=== PATIENT | male | born 1970 | race African-American/Black ===

== ENCOUNTER 2018-05-06 09:31 | Inpatient (IN) | payer OTHER ==
[2018-05-06 10:18] VITALS: BMI 24.3
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
[2018-05-06] MEDS ORDERED: NICOTINE POLACRILEX 2 MG GUM BUC PRN (11:40)
[2018-05-06] MEDS ORDERED: ACETAMINOPHEN 325 MG TABLET (FP) PO PRN (11:40)
[2018-05-06] MEDS ORDERED: MAGNESIUM CITRATE 300 ML BOTTLE PO PRN (11:40)
[2018-05-06] MEDS ORDERED: MAG HYDROX/AL HYDROX/SIMETH 30 ML UNIT-DOSE CUP PO PRN (11:40)
[2018-05-06] MEDS ORDERED: MAGNESIUM HYDROX 2400MG/30ML ORAL SUSPENSION 30 ML CUP PO PRN (11:40)
--- NOTE | 2018-05-06 13:59 | EKG ---
Test Reason : Blood Pressure : / mmHG Vent. Rate : 098 BPM Atrial Rate : 098 BPM P-R Int : 120 ms QRS Dur : 078 ms QT Int : 342 ms P-R-T Axes : 071 049 -13 degrees QTc Int : 436 ms NORMAL SINUS RHYTHM ABNORMAL QRS-T ANGLE, CONSIDER PRIMARY T WAVE ABNORMALITY ABNORMAL ECG NO PREVIOUS ECGS AVAILABLE Confirmed by HOMA RANGEL MD ([id number]) on 05/06/2018 1:58:29 PM Referred By: Confirmed By:HOMA RANGEL MD
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
[2018-05-06 17:16] LABS: URINE APPEARANCE CLEAR; URINE BILIRUBIN NEGATIVE (<2.0 mg/dL); URINE GLUCOSE (UA) NEGATIVE (NEGATIVE); URINE KETONE NEGATIVE (NEGATIVE); URINE LEUK ESTERASE TRACE (NEGATIVE); URINE NITRITE NEGATIVE (NEGATIVE); URINE PROTEIN NEGATIVE (NEGATIVE); URINE UROBILINOGEN NEGATIVE mg/dL (0.2-1.0)
[2018-05-06 17:27] LABS: URINE COLOR YELLOW
[2018-05-06 17:39] LABS: EPI CELLS RARE /HPF (FEW); URINE MUCUS RARE
[2018-05-06] MEDS: chlordiazePOXIDE HCL 25 MG CAPSULE PO SCH ×2 (17:43→22:21)
[2018-05-06] MEDS ORDERED: MELATONIN 5 MG TABLETS PO PRN (22:00)
[2018-05-06] MEDS: THIAMINE HCL 100 MG TABLET (FP) PO SCH (22:21)
[2018-05-07] MEDS: chlordiazePOXIDE HCL 25 MG CAPSULE PO SCH ×4 (06:21→22:37)
[2018-05-07] MEDS: IBUPROFEN 400 MG TABLET (FP) PO PRN ×2 (10:26→22:40)
[2018-05-07] MEDS: PRENATAL VITAMINS W/ FOLIC ACID TABLET (FP) PO SCH (10:26)
[2018-05-07 10:33] LABS: HEMATOCRIT 44.5 % (35.4-49); HEMOGLOBIN 14.7 GM/dL (11.7-16.9); MCH 31.7 pg (25.7-33.7); MEAN PLT VOLUME 9.3 fl (7.5-11.1); PLATELET COUNT 193 K/MM3 (134-434); RBC 4.63 M/mm3 (4.00-5.60); WHITE BLOOD COUNT 4.6 K/mm3 (4.0-10.0)
[2018-05-07 12:30] LABS: ALBUMIN 3.4 g/dl (3.4-5.0); ALK PHOS 91 U/L (45-117); ANION GAP 8 MMOL/L (8-16); BILIRUBIN,TOTAL 0.5 mg/dL (0.2-1); BLOOD UREA NITROGEN 23 mg/dL (7-18); CALCIUM 8.8 mg/dL (8.5-10.1); CHLORIDE 104 mmol/L (98-107); CO2 27 mmol/L (21-32); CREATININE 1.7 mg/dL (0.55-1.3); GLUCOSE,RANDOM 118 mg/dL (74-106); POTASSIUM 4.1 mmol/L (3.5-5.1); SGOT/AST 15 U/L (15-37); SGPT/ALT 33 U/L (13-61); SODIUM 139 mmol/L (136-145); TOT PROT 7.2 g/dl (6.4-8.2)
--- NOTE | 2018-05-07 14:32 | PN ---
S CIWA - CIWA Score Nausea/Vomitin-Mild Nausea/No Vomiting Muscle Tremors: 4-Moderate,w/Arms Extend Anxiety: 2 Agitation: 3 Paroxysmal Sweats: 1-Minimal Palms Moist Orientation: 0-Oriented Tacttile Disturbances: 1-Very Mild Itch/Numbness Auditory Disturbances: 0-None Visual Disturbances: 0-None Headache: 0-None Present CIWA-Ar Total Score: 12 BHS Progress Note (SOAP) Subjective: SWEAT TREMOR RESTLESSNESS IRRITABLE ANXIETY AGITATION Objective: 05/07/18 14:30 Vital Signs Temperature 98.1 F 05/07/18 13:38 Pulse Rate 83 05/07/18 13:38 Respiratory Rate 18 05/07/18 13:38 Blood Pressure 142/91 05/07/18 13:38 O2 Sat by Pulse Oximetry (%) Laboratory Last Values WBC 4.6 K/mm3 (4.0-10.0) 05/07/18 06:00 RBC 4.63 M/mm3 (4.00-5.60) 05/07/18 06:00 Hgb 14.7 GM/dL (11.7-16.9) 05/07/18 06:00 Hct 44.5 % (35.4-49) 05/07/18 06:00 MCV 96.0 fl (80-96) 05/07/18 06:00 MCH 31.7 pg (25.7-33.7) 05/07/18 06:00 MCHC 33.0 g/dl (32.0-35.9) 05/07/18 06:00 RDW 14.0 % (11.9-15.9) 05/07/18 06:00 Plt Count 193 K/MM3 (134-434) 05/07/18 06:00 MPV 9.3 fl (7.5-11.1) 05/07/18 06:00 Sodium 139 mmol/L (136-145) 05/07/18 06:00 Potassium 4.1 mmol/L (3.5-5.1) 05/07/18 06:00 Chloride 104 mmol/L (98-107) 05/07/18 06:00 Carbon Dioxide 27 mmol/L (21-32) 05/07/18 06:00 Anion Gap 8 MMOL/L (8-16) 05/07/18 06:00 BUN 23 mg/dL (7-18) H 05/07/18 06:00 Creatinine 1.7 mg/dL (0.55-1.3) H 05/07/18 06:00 Creat Clearance w eGFR 43.05 (>60) 05/07/18 06:00 Random Glucose 118 mg/dL (74-106) H 05/07/18 06:00 Calcium 8.8 mg/dL (8.5-10.1) 05/07/18 06:00 Total Bilirubin 0.5 mg/dL (0.2-1) 05/07/18 06:00 AST 15 U/L (15-37) 05/07/18 06:00 ALT 33 U/L (13-61) 05/07/18 06:00 Alkaline Phosphatase 91 U/L (45-117) 05/07/18 06:00 Total Protein 7.2 g/dl (6.4-8.2) 05/07/18 06:00 Albumin 3.4 g/dl (3.4-5.0) 05/07/18 06:00 Urine Color Yellow 05/06/18 16:15 Urine Appearance Clear 05/06/18 16:15 Urine pH 5.0 (5.0-8.0) 05/06/18 16:15 Ur Specific [place] 1.016 (1.001-1.035) 05/06/18 16:15 Urine Protein Negative (NEGATIVE) 05/06/18 16:15 Urine Glucose (UA) Negative (NEGATIVE) 05/06/18 16:15 Urine Ketones Negative (NEGATIVE) 05/06/18 16:15 Urine Blood Negative (NEGATIVE) 05/06/18 16:15 Urine Nitrite Negative (NEGATIVE) 05/06/18 16:15 Urine Bilirubin Negative (<2.0 mg/dL) 05/06/18 16:15 Urine Urobilinogen Negative mg/dL (0.2-1.0) 05/06/18 16:15 Ur Leukocyte Esterase Trace (NEGATIVE) 05/06/18 16:15 Urine WBC (Auto) 4 /hpf (3-5) 05/06/18 16:15 Urine RBC (Auto) 1 /hpf (0-3) 05/06/18 16:15 Ur Epithelial Cells Rare /HPF (FEW) 05/06/18 16:15 Urine Mucus Rare 05/06/18 16:15 RPR Titer Nonreactive (NONREACTIVE) 05/07/18 06:00 LAB NOTED REPEAT CAMP Assessment: 05/07/18 14:31 WITHDRAWAL SX RULE OUT RENAL Plan: CONTINUE DETOX
[2018-05-07] MEDS ORDERED: hydrOXYzine PAMOATE 50 MG CAPSULE (FP) PO PRN (16:00)
[2018-05-07] MEDS ORDERED: QUEtiapine FUMARATE 50 MG TABLET PO ONE (16:30)
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
--- NOTE | 2018-05-07 18:00 | PN ---
[facility] CIWA - CIWA Score Nausea/Vomitin-No Nausea/No Vomiting Muscle Tremors: None Anxiety: 1-Mildly Anxious Agitation: 0-Normal Activity Paroxysmal Sweats: No Perspiration Orientation: 0-Oriented Tacttile Disturbances: 0-None Auditory Disturbances: 0-None Visual Disturbances: 0-None Headache: 0-None Present (for 05/06/18 addendum) CIWA-Ar Total Score: 1
[2018-05-07] MEDS ORDERED: QUEtiapine FUMARATE 50 MG TABLET PO SCH (22:00)
[2018-05-07] MEDS: THIAMINE HCL 100 MG TABLET (FP) PO SCH (23:01)
[2018-05-08] MEDS: chlordiazePOXIDE HCL 25 MG CAPSULE PO SCH ×2 (06:05→10:27)
[2018-05-08 06:12] VITALS: BP 138/86; PULSE 70; TEMP 97.3
[2018-05-08] MEDS: PRENATAL VITAMINS W/ FOLIC ACID TABLET (FP) PO SCH (10:27)
[2018-05-08 10:53] LABS: ALBUMIN 2.8 g/dl (3.4-5.0); ALK PHOS 75 U/L (45-117); ANION GAP 8 MMOL/L (8-16); BILIRUBIN,TOTAL 0.2 mg/dL (0.2-1); BLOOD UREA NITROGEN 20 mg/dL (7-18); CALCIUM 8.8 mg/dL (8.5-10.1); CHLORIDE 109 mmol/L (98-107); CO2 25 mmol/L (21-32); CREATININE 1.2 mg/dL (0.55-1.3); GLUCOSE,RANDOM 87 mg/dL (74-106); POTASSIUM 4.6 mmol/L (3.5-5.1); SGOT/AST 14 U/L (15-37); SGPT/ALT 24 U/L (13-61); SODIUM 142 mmol/L (136-145); TOT PROT 5.8 g/dl (6.4-8.2)
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
--- NOTE | 2018-05-08 11:46 | DS ---
[facility] Detox Discharge Summary Admission Date: 05/06/18 Discharge Date: 05/08/18 - History Present History: Alcohol Dependence, Cocaine Dependence Additional Comments: PT DECLINED TREATMENT. Pertinent Past History: PLEASE SEE DX BELOW - Physical Exam Results Vital Signs: Vital Signs Temperature 97.3 F L 05/08/18 06:11 Pulse Rate 70 05/08/18 06:11 Respiratory Rate 16 05/08/18 06:11 Blood Pressure 138/86 05/08/18 06:11 O2 Sat by Pulse Oximetry (%) Pertinent Admission Physical Exam Findings: WITHDRAWAL SX Laboratory Tests 05/06/18 05/07/18 05/07/18 16:15 06:00 06:00 WBC 4.6 RBC 4.63 Hgb 14.7 Hct 44.5 MCV 96.0 MCH 31.7 MCHC 33.0 RDW 14.0 Plt Count 193 MPV 9.3 Sodium 139 Potassium 4.1 Chloride 104 Carbon Dioxide 27 Anion Gap 8 BUN 23 H Creatinine 1.7 H Creat Clearance w eGFR 43.05 Random Glucose 118 H Calcium 8.8 Total Bilirubin 0.5 AST 15 ALT 33 Alkaline Phosphatase 91 Total Protein 7.2 Albumin 3.4 Urine Color Yellow Urine Appearance Clear Urine pH 5.0 Ur Specific [place] 1.016 Urine Protein Negative Urine Glucose (UA) Negative Urine Ketones Negative Urine Blood Negative Urine Nitrite Negative Urine Bilirubin Negative Urine Urobilinogen Negative Ur Leukocyte Esterase Trace Urine WBC (Auto) 4 Urine RBC (Auto) 1 Ur Epithelial Cells Rare Urine Mucus Rare RPR Titer 05/07/18 05/08/18 06:00 07:00 WBC RBC Hgb Hct MCV MCH MCHC RDW Plt Count MPV Sodium 142 Potassium 4.6 Chloride 109 H Carbon Dioxide 25 Anion Gap 8 BUN 20 H Creatinine 1.2 Creat Clearance w eGFR > 60 Random Glucose 87 Calcium 8.8 Total Bilirubin 0.2 AST 14 L ALT 24 Alkaline Phosphatase 75 Total Protein 5.8 L Albumin 2.8 L Urine Color Urine Appearance Urine pH Ur Specific [place] Urine Protein Urine Glucose (UA) Urine Ketones Urine Blood Urine Nitrite Urine Bilirubin Urine Urobilinogen Ur Leukocyte Esterase Urine WBC (Auto) Urine RBC (Auto) Ur Epithelial Cells Urine Mucus RPR Titer Nonreactive - Treatment Hospital Course: Discharged Condition Good - Medication Discharge Medications: Ambulatory Orders Amlodipine Besylate [Norvasc -] 10 mg PO DAILY 05/06/18 - Diagnosis (1) Alcohol dependence with withdrawal, uncomplicated Status: Acute (2) Cocaine dependence Status: Acute Qualifiers: Substance use status: uncomplicated Qualified Code(s): F14.20 - Cocaine dependence, uncomplicated (3) Hypertension Status: Chronic Qualifiers: Hypertension type: essential hypertension Qualified Code(s): I10 - Essential (primary) hypertension (4) Nicotine dependence Status: Acute Qualifiers: Nicotine product type: cigarettes Substance use status: in withdrawal Qualified Code(s): F17.213 - Nicotine dependence, cigarettes, with withdrawal - AMA Did Patient Leave Against Medical Advice: Yes (AMA)
[2018-05-08] MEDS ORDERED: chlordiazePOXIDE 5 MG CAPSULE PO SCH (17:00)
[2018-05-09] MEDS ORDERED: chlordiazePOXIDE HCL 10 MG CAPSULE PO SCH (17:00)
== END 2018-05-08 10:41 | disposition left against medical advice (07) | DRG 770 ==
LOC: YASAS 09:31 → Y6N 12:27 → Y3N 05-07 15:36
PROC: HZ2ZZZZ Detoxification Services for Substance Abuse Treatment (ICD-10-PCS; principal; 2018-05-06)
DX: F10.230 Alcohol dependence with withdrawal, uncomplicated (principal); F14.20 Cocaine dependence, uncomplicated; F17.210 Nicotine dependence, cigarettes, uncomplicated; F19.24 Other psychoactive substance dependence with psychoactive substance-induced mood disorder; F60.9 Personality disorder, unspecified; F60.2 Antisocial personality disorder; I10 Essential (primary) hypertension; M25.572 Pain in left ankle and joints of left foot
CPT/HCPCS: 36415; 80053; 81003; 81015; 85027; 86593; 93005; 93010

== ENCOUNTER 2018-06-23 10:32 | Inpatient (IN) | payer OTHER ==
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
[2018-06-23] MEDS ORDERED: MENTHOL/PHENOL 1 EACH UD MM PRN (14:58)
[2018-06-23] MEDS ORDERED: MAG HYDROX/AL HYDROX/SIMETH 30 ML UNIT-DOSE CUP PO PRN (14:58)
[2018-06-23] MEDS ORDERED: LOPERAMIDE HCL 2 MG CAPSULE PO PRN (14:58)
[2018-06-23] MEDS ORDERED: guaiFENesin/D-METHORPHAN HB 10 ML UNIT-DOSE CUPS PO PRN (14:58)
[2018-06-23] MEDS ORDERED: P-EPHED 60MG/TRIPROLIDI 2.5MG TABLET PO PRN (14:58)
[2018-06-23] MEDS ORDERED: MAGNESIUM HYDROX 2400MG/30ML ORAL SUSPENSION 30 ML CUP PO PRN (14:58)
[2018-06-23] MEDS ORDERED: MAGNESIUM CITRATE 300 ML BOTTLE PO PRN (14:58)
[2018-06-23] MEDS ORDERED: ACETAMINOPHEN 325 MG TABLET (FP) PO PRN (14:58)
[2018-06-23] MEDS ORDERED: TUBERCULIN PPD 5 TU/0.1ML VIAL ID ONE (17:46)
[2018-06-23] MEDS: hydrOXYzine PAMOATE 50 MG CAPSULE (FP) PO PRN (22:00)
[2018-06-23] MEDS: TOLNAFTATE 1% CREAM 15 GM TUBE TP SCH (22:00)
[2018-06-23] MEDS: THIAMINE HCL 100 MG TABLET (FP) PO SCH (22:00)
[2018-06-23] MEDS ORDERED: cloNIDine HCL 0.1 MG TABLET PO ONE (22:05)
--- NOTE | 2018-06-23 22:07 | PN ---
S Progress Note Note: Patient' blood pressure was B/P 162/112. Patient is asymptomatic Vital Signs Temperature 99.0 F 06/23/18 17:56 Pulse Rate 69 06/23/18 22:07 Respiratory Rate 18 06/24/18 03:30 Blood Pressure 162/116 H 06/23/18 22:07 O2 Sat by Pulse Oximetry (%) Action: Clonidine 0.1mg tablet ordered
[2018-06-24 01:10] LABS: URINE APPEARANCE CLEAR; URINE BILIRUBIN NEGATIVE (<2.0 mg/dL); URINE COLOR YELLOW; URINE GLUCOSE (UA) NEGATIVE (NEGATIVE); URINE KETONE NEGATIVE (NEGATIVE); URINE LEUK ESTERASE 1+ (NEGATIVE); URINE NITRITE NEGATIVE (NEGATIVE); URINE PROTEIN NEGATIVE (NEGATIVE); URINE UROBILINOGEN NEGATIVE mg/dL (0.2-1.0)
[2018-06-24 01:21] LABS: EPI CELLS RARE /HPF (FEW); URINE MUCUS RARE
--- NOTE | 2018-06-24 09:51 | EKG ---
Test Reason : Blood Pressure : / mmHG Vent. Rate : 067 BPM Atrial Rate : 067 BPM P-R Int : 112 ms QRS Dur : 082 ms QT Int : 404 ms P-R-T Axes : 046 052 -03 degrees QTc Int : 426 ms NORMAL SINUS RHYTHM NONSPECIFIC T WAVE ABNORMALITY ABNORMAL ECG WHEN COMPARED WITH ECG OF 06-MAY-2018 13:51, NO SIGNIFICANT CHANGE WAS FOUND Confirmed by JUAN CARLOS ASHLEY, HOMA ([id number]) on 06/24/2018 9:50:47 AM Referred By: Confirmed By:HOMA RANGEL MD
[2018-06-24 10:16] LABS: HEMATOCRIT 42.1 % (35.4-49); HEMOGLOBIN 13.4 GM/dL (11.7-16.9); MCHC 31.9 g/dl (32.0-35.9); RDW 14.5 % (11.9-15.9)
[2018-06-24] MEDS: amLODIPine BESYLATE 5 MG TABLET (FP) PO SCH (10:16)
[2018-06-24] MEDS: PRENATAL VITAMINS W/ FOLIC ACID TABLET (FP) PO SCH (10:16)
[2018-06-24] MEDS: NICOTINE 14 MG/24 HOURS TOPICAL PATCH TD SCH (10:16)
[2018-06-24] MEDS: TOLNAFTATE 1% CREAM 15 GM TUBE TP SCH ×2 (10:17→21:59)
[2018-06-24 10:18] LABS: MCH 30.7 pg (25.7-33.7); MEAN CELL VOLUME 96.4 fl (80-96); MEAN PLT VOLUME 7.8 fl (7.5-11.1); PLATELET COUNT 227 K/MM3 (134-434); RBC 4.37 M/mm3 (4.00-5.60); WHITE BLOOD COUNT 4.6 K/mm3 (4.0-10.0)
[2018-06-24 11:10] LABS: ALBUMIN 2.9 g/dl (3.4-5.0); ALK PHOS 80 U/L (45-117); ANION GAP 10 MMOL/L (8-16); BILIRUBIN,TOTAL 0.3 mg/dL (0.2-1); BLOOD UREA NITROGEN 18 mg/dL (7-18); CALCIUM 8.3 mg/dL (8.5-10.1); CHLORIDE 105 mmol/L (98-107); CO2 25 mmol/L (21-32); CREATININE 1.4 mg/dL (0.55-1.3); GLUCOSE,RANDOM 120 mg/dL (74-106); POTASSIUM 4.5 mmol/L (3.5-5.1); SGOT/AST 8 U/L (15-37); SGPT/ALT 21 U/L (13-61); SODIUM 140 mmol/L (136-145); TOT PROT 6.1 g/dl (6.4-8.2)
[2018-06-24] MEDS: THIAMINE HCL 100 MG TABLET (FP) PO SCH (21:58)
[2018-06-25] MEDS: amLODIPine BESYLATE 5 MG TABLET (FP) PO SCH (10:33)
[2018-06-25] MEDS: NICOTINE 14 MG/24 HOURS TOPICAL PATCH TD SCH (10:33)
[2018-06-25] MEDS: PRENATAL VITAMINS W/ FOLIC ACID TABLET (FP) PO SCH (10:33)
[2018-06-25] MEDS: TOLNAFTATE 1% CREAM 15 GM TUBE TP SCH ×2 (10:33→21:57)
[2018-06-25] MEDS: IBUPROFEN 400 MG TABLET (FP) PO PRN (10:35)
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
[2018-06-25 15:10] LABS: ALBUMIN 3.3 g/dl (3.4-5.0); ALK PHOS 86 U/L (45-117); ANION GAP 7 MMOL/L (8-16); BILIRUBIN,TOTAL 0.2 mg/dL (0.2-1); BLOOD UREA NITROGEN 21 mg/dL (7-18); CALCIUM 8.7 mg/dL (8.5-10.1); CHLORIDE 104 mmol/L (98-107); CO2 27 mmol/L (21-32); CREATININE 1.4 mg/dL (0.55-1.3); GLUCOSE,RANDOM 74 mg/dL (74-106); POTASSIUM 4.7 mmol/L (3.5-5.1); SGOT/AST 13 U/L (15-37); SGPT/ALT 21 U/L (13-61); SODIUM 139 mmol/L (136-145); TOT PROT 6.6 g/dl (6.4-8.2)
[2018-06-25] MEDS: hydrOXYzine PAMOATE 50 MG CAPSULE (FP) PO PRN (15:42)
[2018-06-25] MEDS: THIAMINE HCL 100 MG TABLET (FP) PO SCH (21:53)
[2018-06-26] MEDS: TOLNAFTATE 1% CREAM 15 GM TUBE TP SCH ×2 (10:20→21:34)
[2018-06-26] MEDS: NICOTINE POLACRILEX 2 MG GUM BUC PRN (10:20)
[2018-06-26] MEDS: PRENATAL VITAMINS W/ FOLIC ACID TABLET (FP) PO SCH (10:20)
[2018-06-26] MEDS: amLODIPine BESYLATE 5 MG TABLET (FP) PO SCH (10:20)
[2018-06-26] MEDS: NICOTINE 14 MG/24 HOURS TOPICAL PATCH TD SCH (10:22)
[2018-06-26] MEDS: hydrOXYzine PAMOATE 50 MG CAPSULE (FP) PO PRN (12:52)
[2018-06-26] MEDS: THIAMINE HCL 100 MG TABLET (FP) PO SCH (21:34)
[2018-06-27] MEDS: amLODIPine BESYLATE 5 MG TABLET (FP) PO SCH (10:12)
[2018-06-27] MEDS: PRENATAL VITAMINS W/ FOLIC ACID TABLET (FP) PO SCH (10:12)
[2018-06-27] MEDS: NICOTINE 14 MG/24 HOURS TOPICAL PATCH TD SCH (10:13)
[2018-06-27] MEDS: TOLNAFTATE 1% CREAM 15 GM TUBE TP SCH ×2 (10:13→21:36)
[2018-06-27] MEDS: MELATONIN 5 MG TABLETS PO PRN (21:35)
[2018-06-27] MEDS: THIAMINE HCL 100 MG TABLET (FP) PO SCH (21:35)
[2018-06-28] MEDS: amLODIPine BESYLATE 5 MG TABLET (FP) PO SCH (09:53)
[2018-06-28] MEDS: PRENATAL VITAMINS W/ FOLIC ACID TABLET (FP) PO SCH (09:53)
[2018-06-28] MEDS: NICOTINE 14 MG/24 HOURS TOPICAL PATCH TD SCH (09:54)
[2018-06-28] MEDS: TOLNAFTATE 1% CREAM 15 GM TUBE TP SCH ×2 (09:54→21:29)
[2018-06-28] MEDS: THIAMINE HCL 100 MG TABLET (FP) PO SCH (21:28)
[2018-06-28] MEDS: hydrOXYzine PAMOATE 50 MG CAPSULE (FP) PO PRN (21:29)
[2018-06-28] MEDS: NICOTINE POLACRILEX 2 MG GUM BUC PRN (21:31)
[2018-06-29] MEDS: PRENATAL VITAMINS W/ FOLIC ACID TABLET (FP) PO SCH (10:30)
[2018-06-29] MEDS: amLODIPine BESYLATE 5 MG TABLET (FP) PO SCH (10:30)
[2018-06-29] MEDS: NICOTINE 14 MG/24 HOURS TOPICAL PATCH TD SCH (10:31)
[2018-06-29] MEDS: TOLNAFTATE 1% CREAM 15 GM TUBE TP SCH ×2 (10:31→23:24)
[2018-06-29] MEDS: SELENIUM SULFIDE 2.5% LOTION 4 OZ. TP SCH (14:49)
[2018-06-29] MEDS: THIAMINE HCL 100 MG TABLET (FP) PO SCH (21:39)
[2018-06-29] MEDS: IBUPROFEN 400 MG TABLET (FP) PO PRN (21:40)
[2018-06-30] MEDS: PRENATAL VITAMINS W/ FOLIC ACID TABLET (FP) PO SCH (11:00)
[2018-06-30] MEDS: NICOTINE 14 MG/24 HOURS TOPICAL PATCH TD SCH (11:01)
[2018-06-30] MEDS: amLODIPine BESYLATE 5 MG TABLET (FP) PO SCH (11:01)
[2018-06-30] MEDS: TOLNAFTATE 1% CREAM 15 GM TUBE TP SCH ×2 (11:02→21:29)
[2018-06-30] MEDS: SELENIUM SULFIDE 2.5% LOTION 4 OZ. TP SCH (11:02)
[2018-06-30] MEDS: cloNIDine HCL 0.1 MG TABLET PO PRN (14:47)
[2018-06-30] MEDS: hydrOXYzine PAMOATE 50 MG CAPSULE (FP) PO PRN (21:29)
[2018-06-30] MEDS: MELATONIN 5 MG TABLETS PO PRN (21:29)
[2018-06-30] MEDS: THIAMINE HCL 100 MG TABLET (FP) PO SCH (21:29)
[2018-07-01 06:56] VITALS: TEMP 98
[2018-07-01] MEDS: amLODIPine BESYLATE 10 MG TABLET (FP) PO SCH (10:07)
[2018-07-01] MEDS: PRENATAL VITAMINS W/ FOLIC ACID TABLET (FP) PO SCH (10:07)
[2018-07-01] MEDS: SELENIUM SULFIDE 2.5% LOTION 4 OZ. TP SCH (10:08)
[2018-07-01] MEDS: NICOTINE 14 MG/24 HOURS TOPICAL PATCH TD SCH (10:08)
[2018-07-01] MEDS: TOLNAFTATE 1% CREAM 15 GM TUBE TP SCH ×2 (10:09→23:31)
[2018-07-01] MEDS: cloNIDine HCL 0.1 MG TABLET PO PRN (21:38)
[2018-07-01] MEDS: THIAMINE HCL 100 MG TABLET (FP) PO SCH (21:38)
[2018-07-02 06:50] VITALS: BP 136/88; PULSE 73
[2018-07-02] MEDS: cloNIDine HCL 0.1 MG TABLET PO PRN (08:57)
[2018-07-02] MEDS: amLODIPine BESYLATE 10 MG TABLET (FP) PO SCH (10:00)
[2018-07-02] MEDS: NICOTINE 14 MG/24 HOURS TOPICAL PATCH TD SCH (10:00)
[2018-07-02] MEDS: PRENATAL VITAMINS W/ FOLIC ACID TABLET (FP) PO SCH (10:00)
[2018-07-02] MEDS: SELENIUM SULFIDE 2.5% LOTION 4 OZ. TP SCH (10:02)
--- NOTE | 2018-07-02 10:31 | PN ---
Psychiatric Progress Note Vital Signs: Vital Signs Period Temp Pulse Resp BP Sys/Esquivel Pulse Ox Last 24 Hr 98.0 F 73-84 -18 136-162/88-95 Date of Session: 07/02/18 Chief Complaint:: Discharge Note HPI: Patient addressing Cocaine Dependence comorbid with Nicotine dependence, personolity Disorder and substance-induced mood disorder ROS: HTN was medically managed Current Medications: Active Medications Generic Name Dose Route Start Last Admin Trade Name Freq PRN Reason Stop Dose Admin Acetaminophen 650 mg 06/23/18 14:58 Tylenol - PO Q4H PRN FEVER Al Hydroxide/Mg Hydroxide 30 ml 06/23/18 14:58 Mylanta Oral Suspension - PO Q6H PRN DYSPEPSIA Amlodipine Besylate 10 mg 07/01/18 10:00 07/02/18 10:00 Norvasc - PO 10 mg DAILY AUBREY Administration Clonidine 0.1 mg 06/30/18 14:37 07/02/18 08:57 Catapres - PO 0.1 mg BID PRN Administration HYPERTENSION Eucalyptus/Menthol/Phenol/Sorbitol 1 each 06/23/18 14:58 Cepastat Lozenge - MM Q4H PRN SORE THROAT Guaifenesin 10 ml 06/23/18 14:58 Robitussin Dm - PO Q6H PRN COUGH Hydroxyzine Pamoate 50 mg 06/23/18 14:58 06/30/18 21:29 Vistaril - PO 50 mg Q4H PRN Administration AGITATION Ibuprofen 400 mg 06/23/18 14:58 06/29/18 21:40 Motrin - PO 400 mg Q6H PRN Administration Pain level 4-6 Loperamide HCl 4 mg 06/23/18 14:58 Imodium - PO Q6H PRN DIARRHEA Magnesium Citrate 300 ml 06/23/18 14:58 Citroma - PO Q48H PRN CONSTIPATION Magnesium Hydroxide 30 ml 06/23/18 14:58 Milk Of Magnesia - PO DAILY PRN CONSTIPATION Melatonin 5 mg 06/23/18 22:00 06/30/18 21:29 Melatonin PO 5 mg HS PRN Administration INSOMNIA Nicotine 14 mg 06/24/18 10:00 07/02/18 10:00 Nicoderm Patch - TD Not Given DAILY AUBREY Nicotine Polacrilex 2 mg 06/25/18 10:51 06/28/18 21:31 Nicorette Gum - BUC 2 mg Q2H PRN Administration NICOTINE REPLACEMENT RX Multivit/Folic Acid/Iron 1 tab 06/24/18 10:00 07/02/18 10:00 Vitamins (Sjr) - PO 1 tab DAILY AUBREY Administration Pseudoephedrine/Triprolidine 1 combo 06/23/18 14:58 Actifed - PO TID PRN NASAL CONGESTION Selenium Sulfide 1 applic 06/29/18 14:15 07/02/18 10:02 Selsun 2.5% Lotion - TP 07/06/18 14:15 1 applic DAILY AUBREY Administration Thiamine HCl 100 mg 06/23/18 22:00 07/01/18 21:38 Vitamin B1 - PO 100 mg HS AUBREY Administration Tolnaftate 1 applic 06/23/18 22:00 07/01/18 23:31 Tinactin 1% Cream - TP Not Given BID AUBREY Current Side Effect: No Lab tests ordered: Yes Lab tests reviewed: Yes Provider note:: Patient has completed this program today. he has met his treatment goals and will continue to address his issues in outpatient at [facility] at [address] [place] [address]. told sba underwriter that from his participation in this program, he has learned that you could only get what you put in. He is stable for discharge today Mental Status Exam - Mental Status Exam Alert and Oriented to: Time, Place, Person Cognitive Function: Fair Patient Appearance: Well Groomed Mood: Hopeful, Euthymic Affect: Appropriate Patient Behavior: Cooperative Speech Pattern: Clear Voice Loudness: Normal Thought Process: Intact, Goal Oriented Thought Disorder: Not Present Hallucinations: Denies Suicidal Ideation: Denies Homicidal Ideation: Denies Insight/Judgement: Fair Sleep: Fair Appetite: Good Muscle strength/Tone: Normal Gait/Station: Normal Psychiatric Treatment Plan - Problem List (1) Cocaine dependence Current Visit: Yes Qualifiers: Substance use status: uncomplicated Qualified Code(s): F14.20 - Cocaine dependence, uncomplicated (2) Nicotine dependence Current Visit: No Qualifiers: Nicotine product type: cigarettes Substance use status: in withdrawal Qualified Code(s): F17.213 - Nicotine dependence, cigarettes, with withdrawal (3) Personality disorder Current Visit: Yes (4) Substance induced mood disorder Current Visit: Yes (5) Hypertension Current Visit: Yes Qualifiers: Hypertension type: essential hypertension Qualified Code(s): I10 - Essential (primary) hypertension Initial treatment plan: Patient is dischasrged today and referred to [facility] in [place], [place] for outpatient treatment
[2018-07-02] MEDS: TOLNAFTATE 1% CREAM 15 GM TUBE TP SCH (11:04)
== END 2018-07-02 10:35 | disposition home or self-care (01) | DRG 772 ==
LOC: YASAS 10:32 → Y5N 15:14
PROVIDERS: ADMIT Psychiatry & Neurology Psychiatry; ATTEND Psychiatry & Neurology Psychiatry
PROC: HZ42ZZZ Group Counseling for Substance Abuse Treatment, Cognitive-Behavioral (ICD-10-PCS; principal; 2018-06-23)
DX: F10.20 Alcohol dependence, uncomplicated (principal); F14.20 Cocaine dependence, uncomplicated; F17.213 Nicotine dependence, cigarettes, with withdrawal; F19.24 Other psychoactive substance dependence with psychoactive substance-induced mood disorder; F60.9 Personality disorder, unspecified; I10 Essential (primary) hypertension; B35.3 Tinea pedis; Z91.14 Patient's other noncompliance with medication regimen
CPT/HCPCS: 36415; 80053; 81003; 81015; 82962; 85027; 86593; 87389; 93005; 93010; J0735

== ENCOUNTER 2018-07-25 14:19 | Inpatient (IN) | payer OTHER ==
[2018-07-25 15:55] VITALS: BMI 24.4
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
[2018-07-25] MEDS ORDERED: LOPERAMIDE HCL 2 MG CAPSULE PO PRN (18:51)
[2018-07-25] MEDS ORDERED: IBUPROFEN 400 MG TABLET (FP) PO PRN (18:51)
[2018-07-25] MEDS ORDERED: guaiFENesin/D-METHORPHAN HB 10 ML UNIT-DOSE CUPS PO PRN (18:51)
[2018-07-25] MEDS ORDERED: hydrOXYzine PAMOATE 50 MG CAPSULE (FP) PO PRN (18:51)
[2018-07-25] MEDS ORDERED: MAGNESIUM CITRATE 300 ML BOTTLE PO PRN (18:51)
[2018-07-25] MEDS ORDERED: MAG HYDROX/AL HYDROX/SIMETH 30 ML UNIT-DOSE CUP PO PRN (18:51)
[2018-07-25] MEDS ORDERED: MENTHOL/PHENOL 1 EACH UD MM PRN (18:51)
[2018-07-25] MEDS ORDERED: MAGNESIUM HYDROX 2400MG/30ML ORAL SUSPENSION 30 ML CUP PO PRN (18:51)
[2018-07-25] MEDS ORDERED: ACETAMINOPHEN 325 MG TABLET (FP) PO PRN (18:51)
[2018-07-25] MEDS ORDERED: P-EPHED 60MG/TRIPROLIDI 2.5MG TABLET PO PRN (18:51)
[2018-07-25] MEDS ORDERED: NICOTINE POLACRILEX 2 MG GUM BC PRN (18:51)
[2018-07-25] MEDS: NICOTINE 14 MG/24 HOURS TOPICAL PATCH TD SCH (19:31)
[2018-07-25] MEDS: chlordiazePOXIDE HCL 25 MG CAPSULE PO PRN (19:31)
[2018-07-25] MEDS: amLODIPine BESYLATE 10 MG TABLET (FP) PO SCH (19:31)
[2018-07-25] MEDS ORDERED: MELATONIN 5 MG TABLETS PO PRN (22:00)
[2018-07-25 22:36] LABS: URINE APPEARANCE CLEAR; URINE BILIRUBIN NEGATIVE (<2.0 mg/dL); URINE COLOR YELLOW; URINE GLUCOSE (UA) NEGATIVE (NEGATIVE); URINE KETONE NEGATIVE (NEGATIVE); URINE LEUK ESTERASE NEGATIVE (NEGATIVE); URINE NITRITE NEGATIVE (NEGATIVE); URINE PROTEIN NEGATIVE (NEGATIVE)
[2018-07-25] MEDS: chlordiazePOXIDE HCL 25 MG CAPSULE PO SCH (22:55)
[2018-07-25] MEDS: TOLNAFTATE 1% CREAM 15 GM TUBE TP SCH (22:55)
[2018-07-25] MEDS: THIAMINE HCL 100 MG TABLET (FP) PO SCH (22:55)
[2018-07-26] MEDS: chlordiazePOXIDE HCL 25 MG CAPSULE PO SCH ×4 (06:30→22:34)
[2018-07-26 10:31] LABS: HEMATOCRIT 40.5 % (35.4-49); HEMOGLOBIN 13.9 GM/dL (11.7-16.9); MCH 32.1 pg (25.7-33.7); MCHC 34.3 g/dl (32.0-35.9); MEAN CELL VOLUME 93.7 fl (80-96); MEAN PLT VOLUME 7.9 fl (7.5-11.1); PLATELET COUNT 235 K/MM3 (134-434); RBC 4.32 M/mm3 (4.00-5.60); RDW 15.1 % (11.9-15.9); WHITE BLOOD COUNT 3.6 K/mm3 (4.0-10.0)
[2018-07-26] MEDS: SELENIUM SULFIDE 2.5% LOTION 4 OZ. TP SCH (10:42)
[2018-07-26] MEDS: TOLNAFTATE 1% CREAM 15 GM TUBE TP SCH ×2 (10:43→22:34)
[2018-07-26] MEDS: NICOTINE 14 MG/24 HOURS TOPICAL PATCH TD SCH (10:43)
[2018-07-26] MEDS: amLODIPine BESYLATE 10 MG TABLET (FP) PO SCH (10:43)
[2018-07-26] MEDS: PRENATAL VITAMINS W/ FOLIC ACID TABLET (FP) PO SCH (10:43)
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
[2018-07-26 11:08] LABS: ALBUMIN 2.8 g/dl (3.4-5.0); ALK PHOS 71 U/L (45-117); ANION GAP 8 MMOL/L (8-16); BILIRUBIN,TOTAL 0.5 mg/dL (0.2-1); BLOOD UREA NITROGEN 11 mg/dL (7-18); CALCIUM 8.2 mg/dL (8.5-10.1); CHLORIDE 107 mmol/L (98-107); CO2 26 mmol/L (21-32); CREATININE 1.4 mg/dL (0.55-1.3); GLUCOSE,RANDOM 80 mg/dL (74-106); POTASSIUM 4.5 mmol/L (3.5-5.1); SGOT/AST 9 U/L (15-37); SGPT/ALT 17 U/L (13-61); SODIUM 141 mmol/L (136-145)
--- NOTE | 2018-07-26 18:10 | PN ---
[facility] CIWA - CIWA Score Nausea/Vomitin Muscle Tremors: 4-Moderate,w/Arms Extend Anxiety: 4-Mod. Anxious/Guarded Agitation: 4-Moderately Restless Paroxysmal Sweats: 3 Orientation: 0-Oriented Tacttile Disturbances: 0-None Auditory Disturbances: 0-None Visual Disturbances: 0-None Headache: 0-None Present CIWA-Ar Total Score: 17 BHS Progress Note (SOAP) Subjective: Chills, sweating, interrupted sleep Objective: 07/26/18 18:08 Last Vital Signs Temp Pulse Resp BP Pulse Ox 98.9 F 73 18 120/66 07/26/18 14:50 07/26/18 14:50 07/26/18 14:50 07/26/18 14:50 Laboratory Tests 07/25/18 07/26/18 07/26/18 18:30 07:15 07:15 WBC 3.6 L RBC 4.32 Hgb 13.9 Hct 40.5 MCV 93.7 MCH 32.1 MCHC 34.3 RDW 15.1 Plt Count 235 MPV 7.9 Sodium 141 Potassium 4.5 Chloride 107 Carbon Dioxide 26 Anion Gap 8 BUN 11 Creatinine 1.4 H Creat Clearance w eGFR 53.64 Random Glucose 80 Calcium 8.2 L Total Bilirubin 0.5 AST 9 L ALT 17 Alkaline Phosphatase 71 Total Protein 6.0 L Albumin 2.8 L Urine Color Yellow Urine Appearance Clear Urine pH 5.0 Ur Specific [place] 1.026 Urine Protein Negative Urine Glucose (UA) Negative Urine Ketones Negative Urine Blood Negative Urine Nitrite Negative Urine Bilirubin Negative Urine Urobilinogen 2.0 Ur Leukocyte Esterase Negative RPR Titer 07/26/18 07:15 WBC RBC Hgb Hct MCV MCH MCHC RDW Plt Count MPV Sodium Potassium Chloride Carbon Dioxide Anion Gap BUN Creatinine Creat Clearance w eGFR Random Glucose Calcium Total Bilirubin AST ALT Alkaline Phosphatase Total Protein Albumin Urine Color Urine Appearance Urine pH Ur Specific [place] Urine Protein Urine Glucose (UA) Urine Ketones Urine Blood Urine Nitrite Urine Bilirubin Urine Urobilinogen Ur Leukocyte Esterase RPR Titer Nonreactive Labs reviewed: SILAS noted Assessment: 07/26/18 18:09 Withdrawal symptoms SILAS noted Plan: Continue detox SILAS: encouraged PO water hydration, repeat BMP
[2018-07-26] MEDS: THIAMINE HCL 100 MG TABLET (FP) PO SCH (22:34)
[2018-07-27] MEDS: chlordiazePOXIDE HCL 25 MG CAPSULE PO PRN ×3 (03:13→19:30)
[2018-07-27] MEDS: chlordiazePOXIDE HCL 25 MG CAPSULE PO SCH ×3 (06:03→17:14)
[2018-07-27] MEDS: PRENATAL VITAMINS W/ FOLIC ACID TABLET (FP) PO SCH (10:39)
[2018-07-27] MEDS: amLODIPine BESYLATE 10 MG TABLET (FP) PO SCH (10:39)
[2018-07-27] MEDS: TOLNAFTATE 1% CREAM 15 GM TUBE TP SCH ×2 (10:39→22:37)
[2018-07-27] MEDS: SELENIUM SULFIDE 2.5% LOTION 4 OZ. TP SCH (10:40)
[2018-07-27] MEDS: NICOTINE 14 MG/24 HOURS TOPICAL PATCH TD SCH (10:52)
[2018-07-27 11:00] LABS: ANION GAP 8 MMOL/L (8-16); BLOOD UREA NITROGEN 17 mg/dL (7-18); CALCIUM 8.2 mg/dL (8.5-10.1); CHLORIDE 108 mmol/L (98-107); CO2 23 mmol/L (21-32); CREATININE 1.5 mg/dL (0.55-1.3); GLUCOSE,RANDOM 112 mg/dL (74-106); POTASSIUM 4.3 mmol/L (3.5-5.1); SODIUM 139 mmol/L (136-145)
--- NOTE | 2018-07-27 14:02 | PN ---
S CIWA - CIWA Score Nausea/Vomitin-Mild Nausea/No Vomiting Muscle Tremors: 3 Anxiety: 2 Agitation: 3 Paroxysmal Sweats: 1-Minimal Palms Moist Orientation: 0-Oriented Tacttile Disturbances: 0-None Auditory Disturbances: 0-None Visual Disturbances: 0-None Headache: 2-Mild CIWA-Ar Total Score: 12 S Progress Note (SOAP) Subjective: tremor sweat anxiety restlessness headaches trouble resting at night Objective: 07/27/18 14:01 Vital Signs Temperature 98.4 F 07/27/18 13:19 Pulse Rate 83 07/27/18 13:19 Respiratory Rate 18 07/27/18 13:19 Blood Pressure 127/84 07/27/18 13:19 O2 Sat by Pulse Oximetry (%) Laboratory Last Values WBC 3.6 K/mm3 (4.0-10.0) L 07/26/18 07:15 RBC 4.32 M/mm3 (4.00-5.60) 07/26/18 07:15 Hgb 13.9 GM/dL (11.7-16.9) 07/26/18 07:15 Hct 40.5 % (35.4-49) 07/26/18 07:15 MCV 93.7 fl (80-96) 07/26/18 07:15 MCH 32.1 pg (25.7-33.7) 07/26/18 07:15 MCHC 34.3 g/dl (32.0-35.9) 07/26/18 07:15 RDW 15.1 % (11.9-15.9) 07/26/18 07:15 Plt Count 235 K/MM3 (134-434) 07/26/18 07:15 MPV 7.9 fl (7.5-11.1) 07/26/18 07:15 Sodium 139 mmol/L (136-145) 07/27/18 07:00 Potassium 4.3 mmol/L (3.5-5.1) 07/27/18 07:00 Chloride 108 mmol/L (98-107) H 07/27/18 07:00 Carbon Dioxide 23 mmol/L (21-32) 07/27/18 07:00 Anion Gap 8 MMOL/L (8-16) 07/27/18 07:00 BUN 17 mg/dL (7-18) 07/27/18 07:00 Creatinine 1.5 mg/dL (0.55-1.3) H 07/27/18 07:00 Creat Clearance w eGFR 49.54 (>60) 07/27/18 07:00 Random Glucose 112 mg/dL (74-106) H 07/27/18 07:00 Calcium 8.2 mg/dL (8.5-10.1) L 07/27/18 07:00 Total Bilirubin 0.5 mg/dL (0.2-1) 07/26/18 07:15 AST 9 U/L (15-37) L 07/26/18 07:15 ALT 17 U/L (13-61) 07/26/18 07:15 Alkaline Phosphatase 71 U/L (45-117) 07/26/18 07:15 Total Protein 6.0 g/dl (6.4-8.2) L 07/26/18 07:15 Albumin 2.8 g/dl (3.4-5.0) L 07/26/18 07:15 Urine Color Yellow 07/25/18 18:30 Urine Appearance Clear 07/25/18 18:30 Urine pH 5.0 (5.0-8.0) 07/25/18 18:30 Ur Specific [place] 1.026 (1.010-1.035) 07/25/18 18:30 Urine Protein Negative (NEGATIVE) 07/25/18 18:30 Urine Glucose (UA) Negative (NEGATIVE) 07/25/18 18:30 Urine Ketones Negative (NEGATIVE) 07/25/18 18:30 Urine Blood Negative (NEGATIVE) 07/25/18 18:30 Urine Nitrite Negative (NEGATIVE) 07/25/18 18:30 Urine Bilirubin Negative (<2.0 mg/dL) 07/25/18 18:30 Urine Urobilinogen 2.0 mg/dL (0.2-1.0) 07/25/18 18:30 Ur Leukocyte Esterase Negative (NEGATIVE) 07/25/18 18:30 RPR Titer Nonreactive (NONREACTIVE) 07/26/18 07:15 lab noted Assessment: 07/27/18 14:02 withdrawal sx Plan: continue detox
[2018-07-27] MEDS: THIAMINE HCL 100 MG TABLET (FP) PO SCH (22:37)
[2018-07-27] MEDS: chlordiazePOXIDE 5 MG CAPSULE PO SCH (22:37)
[2018-07-28] MEDS: chlordiazePOXIDE 5 MG CAPSULE PO SCH (06:25)
[2018-07-28 06:29] VITALS: TEMP 98.2
[2018-07-28] MEDS: PRENATAL VITAMINS W/ FOLIC ACID TABLET (FP) PO SCH (09:04)
[2018-07-28] MEDS: amLODIPine BESYLATE 10 MG TABLET (FP) PO SCH (09:06)
[2018-07-28 09:07] VITALS: BP 121/85; PULSE 103
--- NOTE | 2018-07-28 09:18 | DS ---
[facility] Detox Discharge Summary Admission Date: 07/25/18 Discharge Date: 07/28/18 - History Present History: Alcohol Dependence Additional Comments: 48 years old male admitted on 07/25/18 for alcohol withdrawal stabilization completed alcohol detox regimen tolerated well alert no acute distress aftercare [facility] - Physical Exam Results Vital Signs: Vital Signs Temperature 98.2 F 07/28/18 06:29 Pulse Rate 103 H 07/28/18 09:07 Respiratory Rate 18 07/28/18 06:29 Blood Pressure 121/85 07/28/18 09:07 O2 Sat by Pulse Oximetry (%) Pertinent Admission Physical Exam Findings: alcohol withdrawal sx Vital Signs Temperature 98.2 F 07/28/18 06:29 Pulse Rate 103 H 07/28/18 09:07 Respiratory Rate 18 07/28/18 06:29 Blood Pressure 121/85 07/28/18 09:07 O2 Sat by Pulse Oximetry (%) Laboratory Last Values WBC 3.6 K/mm3 (4.0-10.0) L 07/26/18 07:15 RBC 4.32 M/mm3 (4.00-5.60) 07/26/18 07:15 Hgb 13.9 GM/dL (11.7-16.9) 07/26/18 07:15 Hct 40.5 % (35.4-49) 07/26/18 07:15 MCV 93.7 fl (80-96) 07/26/18 07:15 MCH 32.1 pg (25.7-33.7) 07/26/18 07:15 MCHC 34.3 g/dl (32.0-35.9) 07/26/18 07:15 RDW 15.1 % (11.9-15.9) 07/26/18 07:15 Plt Count 235 K/MM3 (134-434) 07/26/18 07:15 MPV 7.9 fl (7.5-11.1) 07/26/18 07:15 Sodium 139 mmol/L (136-145) 07/27/18 07:00 Potassium 4.3 mmol/L (3.5-5.1) 07/27/18 07:00 Chloride 108 mmol/L (98-107) H 07/27/18 07:00 Carbon Dioxide 23 mmol/L (21-32) 07/27/18 07:00 Anion Gap 8 MMOL/L (8-16) 07/27/18 07:00 BUN 17 mg/dL (7-18) 07/27/18 07:00 Creatinine 1.5 mg/dL (0.55-1.3) H 07/27/18 07:00 Creat Clearance w eGFR 49.54 (>60) 07/27/18 07:00 Random Glucose 112 mg/dL (74-106) H 07/27/18 07:00 Calcium 8.2 mg/dL (8.5-10.1) L 07/27/18 07:00 Total Bilirubin 0.5 mg/dL (0.2-1) 07/26/18 07:15 AST 9 U/L (15-37) L 07/26/18 07:15 ALT 17 U/L (13-61) 07/26/18 07:15 Alkaline Phosphatase 71 U/L (45-117) 07/26/18 07:15 Total Protein 6.0 g/dl (6.4-8.2) L 07/26/18 07:15 Albumin 2.8 g/dl (3.4-5.0) L 07/26/18 07:15 Urine Color Yellow 07/25/18 18:30 Urine Appearance Clear 07/25/18 18:30 Urine pH 5.0 (5.0-8.0) 07/25/18 18:30 Ur Specific [place] 1.026 (1.010-1.035) 07/25/18 18:30 Urine Protein Negative (NEGATIVE) 07/25/18 18:30 Urine Glucose (UA) Negative (NEGATIVE) 07/25/18 18:30 Urine Ketones Negative (NEGATIVE) 07/25/18 18:30 Urine Blood Negative (NEGATIVE) 07/25/18 18:30 Urine Nitrite Negative (NEGATIVE) 07/25/18 18:30 Urine Bilirubin Negative (<2.0 mg/dL) 07/25/18 18:30 Urine Urobilinogen 2.0 mg/dL (0.2-1.0) 07/25/18 18:30 Ur Leukocyte Esterase Negative (NEGATIVE) 07/25/18 18:30 RPR Titer Nonreactive (NONREACTIVE) 07/26/18 07:15 lab noted - Treatment Hospital Course: Detox Protocol Followed, Detoxed Safely, Responded well, Discharged Condition Good, Rehab Referral Accepted Patient has Accepted a Rehab Referral to: [facility] - Medication Discharge Medications: Ambulatory Orders Amlodipine Besylate [Norvasc -] 10 mg PO DAILY #14 tablet 07/28/18 - Diagnosis (1) Alcohol dependence with withdrawal, uncomplicated Status: Acute (2) Weight loss Status: Acute (3) Hypertension Status: Chronic Qualifiers: Hypertension type: essential hypertension Qualified Code(s): I10 - Essential (primary) hypertension (4) Nicotine dependence Status: Acute Qualifiers: Nicotine product type: cigarettes Substance use status: in withdrawal Qualified Code(s): F17.213 - Nicotine dependence, cigarettes, with withdrawal - AMA Did Patient Leave Against Medical Advice: No
[2018-07-28] MEDS ORDERED: chlordiazePOXIDE HCL 10 MG CAPSULE PO SCH (23:00)
== END 2018-07-28 09:05 | disposition home or self-care (01) | DRG 774 ==
LOC: YASAS 14:19 → Y3N 18:35
PROC: HZ2ZZZZ Detoxification Services for Substance Abuse Treatment (ICD-10-PCS; principal; 2018-07-25)
DX: F10.230 Alcohol dependence with withdrawal, uncomplicated (principal); F14.20 Cocaine dependence, uncomplicated; F17.213 Nicotine dependence, cigarettes, with withdrawal; F19.24 Other psychoactive substance dependence with psychoactive substance-induced mood disorder; F60.2 Antisocial personality disorder; F60.9 Personality disorder, unspecified; I10 Essential (primary) hypertension; N17.9 Acute kidney failure, unspecified; B35.3 Tinea pedis; L21.9 Seborrheic dermatitis, unspecified; R63.4 Abnormal weight loss; Z68.24 Body mass index [BMI] 24.0-24.9, adult; Z86.19 Personal history of other infectious and parasitic diseases
CPT/HCPCS: 36415; 80048; 80053; 81003; 85027; 86593

== ENCOUNTER 2018-10-19 22:01 | Inpatient (IN) | payer OTHER ==
[~2018-10-19 22:01] MED LIST: MELATONIN 5 MG TABLETS PO PRN
[2018-10-19 22:39] VITALS: BMI 23.7
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
[2018-10-19] MEDS ORDERED: LOPERAMIDE HCL 2 MG CAPSULE PO PRN (23:22)
[2018-10-19] MEDS ORDERED: MAG HYDROX/AL HYDROX/SIMETH 30 ML UNIT-DOSE CUP PO PRN (23:22)
[2018-10-19] MEDS ORDERED: ACETAMINOPHEN 325 MG TABLET (FP) PO PRN (23:22)
[2018-10-19] MEDS ORDERED: hydrOXYzine PAMOATE 50 MG CAPSULE (FP) PO PRN (23:22)
[2018-10-19] MEDS ORDERED: MAGNESIUM CITRATE 300 ML BOTTLE PO PRN (23:22)
[2018-10-19] MEDS ORDERED: MAGNESIUM HYDROX 2400MG/30ML ORAL SUSPENSION 30 ML CUP PO PRN (23:22)
[2018-10-19] MEDS ORDERED: P-EPHED 60MG/TRIPROLIDI 2.5MG TABLET PO PRN (23:22)
[2018-10-19] MEDS ORDERED: MENTHOL/PHENOL 1 EACH UD MM PRN (23:22)
[2018-10-19] MEDS ORDERED: guaiFENesin/D-METHORPHAN HB 10 ML UNIT-DOSE CUPS PO PRN (23:22)
[2018-10-19] MEDS ORDERED: NICOTINE POLACRILEX 2 MG GUM BC PRN (23:22)
[2018-10-20] MEDS ORDERED: chlordiazePOXIDE HCL 25 MG CAPSULE PO PRN (00:02)
[2018-10-20] MEDS: chlordiazePOXIDE HCL 25 MG CAPSULE PO SCH ×4 (06:31→22:27)
[2018-10-20] MEDS: amLODIPine BESYLATE 10 MG TABLET (FP) PO SCH (10:21)
[2018-10-20] MEDS: PRENATAL VITAMINS W/ FOLIC ACID TABLET (FP) PO SCH (10:21)
[2018-10-20] MEDS: NICOTINE 14 MG/24 HOURS TOPICAL PATCH TD SCH (10:22)
[2018-10-20 10:58] LABS: HEMATOCRIT 38.9 % (35.4-49); HEMOGLOBIN 13.1 GM/dL (11.7-16.9); MCH 31.7 pg (25.7-33.7); MCHC 33.7 g/dl (32.0-35.9); MEAN CELL VOLUME 94.1 fl (80-96); MEAN PLT VOLUME 8.3 fl (7.5-11.1); PLATELET COUNT 190 K/MM3 (134-434); RBC 4.14 M/mm3 (4.00-5.60); RDW 15.3 % (11.9-15.9); WHITE BLOOD COUNT 4.4 K/mm3 (4.0-10.0)
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
[2018-10-20 11:09] LABS: ALK PHOS 76 U/L (45-117); ANION GAP 10 MMOL/L (8-16); BILIRUBIN,TOTAL 0.4 mg/dL (0.2-1); BLOOD UREA NITROGEN 18 mg/dL (7-18); CALCIUM 8.6 mg/dL (8.5-10.1); CHLORIDE 105 mmol/L (98-107); CO2 24 mmol/L (21-32); CREATININE 1.3 mg/dL (0.55-1.3); GLUCOSE,RANDOM 81 mg/dL (74-106); POTASSIUM 4.1 mmol/L (3.5-5.1); SGOT/AST 18 U/L (15-37); SGPT/ALT 31 U/L (13-61); SODIUM 139 mmol/L (136-145); TOT PROT 6.1 g/dl (6.4-8.2)
--- NOTE | 2018-10-20 14:33 | PN ---
S CIWA - CIWA Score Nausea/Vomitin-Mild Nausea/No Vomiting Muscle Tremors: 3 Anxiety: 1-Mildly Anxious Agitation: 2 Paroxysmal Sweats: 1-Minimal Palms Moist Orientation: 1-Uncertain about Date Tacttile Disturbances: 0-None Auditory Disturbances: 0-None Visual Disturbances: 0-None Headache: 2-Mild CIWA-Ar Total Score: 11 S Progress Note (SOAP) Subjective: tremor sweating restlessness anxiety Objective: 10/20/18 14:33 Vital Signs Temperature 98.4 F 10/20/18 14:02 Pulse Rate 72 10/20/18 14:02 Respiratory Rate 18 10/20/18 14:02 Blood Pressure 116/69 10/20/18 14:02 O2 Sat by Pulse Oximetry (%) Laboratory Last Values WBC 4.4 K/mm3 (4.0-10.0) 10/20/18 07:00 RBC 4.14 M/mm3 (4.00-5.60) 10/20/18 07:00 Hgb 13.1 GM/dL (11.7-16.9) 10/20/18 07:00 Hct 38.9 % (35.4-49) 10/20/18 07:00 MCV 94.1 fl (80-96) 10/20/18 07:00 MCH 31.7 pg (25.7-33.7) 10/20/18 07:00 MCHC 33.7 g/dl (32.0-35.9) 10/20/18 07:00 RDW 15.3 % (11.9-15.9) 10/20/18 07:00 Plt Count 190 K/MM3 (134-434) 10/20/18 07:00 MPV 8.3 fl (7.5-11.1) 10/20/18 07:00 Sodium 139 mmol/L (136-145) 10/20/18 07:00 Potassium 4.1 mmol/L (3.5-5.1) 10/20/18 07:00 Chloride 105 mmol/L (98-107) 10/20/18 07:00 Carbon Dioxide 24 mmol/L (21-32) 10/20/18 07:00 Anion Gap 10 MMOL/L (8-16) 10/20/18 07:00 BUN 18 mg/dL (7-18) 10/20/18 07:00 Creatinine 1.3 mg/dL (0.55-1.3) 10/20/18 07:00 Creat Clearance w eGFR 58.43 (>60) 10/20/18 07:00 Random Glucose 81 mg/dL (74-106) 10/20/18 07:00 Calcium 8.6 mg/dL (8.5-10.1) 10/20/18 07:00 Total Bilirubin 0.4 mg/dL (0.2-1) 10/20/18 07:00 AST 18 U/L (15-37) 10/20/18 07:00 ALT 31 U/L (13-61) 10/20/18 07:00 Alkaline Phosphatase 76 U/L (45-117) 10/20/18 07:00 Total Protein 6.1 g/dl (6.4-8.2) L 10/20/18 07:00 Albumin 3.0 g/dl (3.4-5.0) L 10/20/18 07:00 RPR Titer Nonreactive (NONREACTIVE) 10/20/18 07:00 lab noted Assessment: 10/20/18 14:34 withdrawal sx Plan: continue detox
[2018-10-20] MEDS: THIAMINE HCL 100 MG TABLET (FP) PO SCH (22:28)
[2018-10-20] MEDS: IBUPROFEN 400 MG TABLET (FP) PO PRN (22:30)
[2018-10-21] MEDS: chlordiazePOXIDE HCL 25 MG CAPSULE PO SCH ×4 (05:30→22:41)
[2018-10-21] MEDS: IBUPROFEN 400 MG TABLET (FP) PO PRN (07:27)
[2018-10-21] MEDS: PRENATAL VITAMINS W/ FOLIC ACID TABLET (FP) PO SCH (10:28)
[2018-10-21] MEDS: NICOTINE 14 MG/24 HOURS TOPICAL PATCH TD SCH (10:28)
[2018-10-21] MEDS: amLODIPine BESYLATE 10 MG TABLET (FP) PO SCH (10:28)
[2018-10-21] MEDS ORDERED: SELENIUM SULFIDE 2.25% 180 ML SHAMPOO TP SCH (10:30)
--- NOTE | 2018-10-21 14:45 | PN ---
[facility] CIWA - CIWA Score Nausea/Vomitin-No Nausea/No Vomiting Muscle Tremors: None Anxiety: 0-No Anxiety, at Ease Agitation: 0-Normal Activity Paroxysmal Sweats: No Perspiration Orientation: 0-Oriented Tacttile Disturbances: 0-None Auditory Disturbances: 0-None Visual Disturbances: 0-None Headache: 0-None Present CIWA-Ar Total Score: 0 [facility] Progress Note (SOAP) Subjective: pt here for alcohol detox day #2, doing well. Requesting ensure, double meal portions, requesting Se Sulfide shampoo for itchy scalp/dandruff O: Vital Signs - 24 hr 10/20/18 10/21/18 10/21/18 17:43 00:30 03:30 Temperature Pulse Rate 75 Respiratory 18 18 18 Rate Blood Pressure 119/80 10/21/18 10/21/18 10/21/18 07:51 09:14 12:56 Temperature 97.3 F L 97.2 F L 98.1 F Pulse Rate 63 99 H 93 H Respiratory 18 18 18 Rate Blood Pressure 125/72 142/89 136/77 Laboratory Tests 10/20/18 10/20/18 10/20/18 07:00 07:00 07:00 WBC 4.4 RBC 4.14 Hgb 13.1 Hct 38.9 MCV 94.1 MCH 31.7 MCHC 33.7 RDW 15.3 Plt Count 190 MPV 8.3 Sodium 139 Potassium 4.1 Chloride 105 Carbon Dioxide 24 Anion Gap 10 BUN 18 Creatinine 1.3 Creat Clearance w eGFR 58.43 Random Glucose 81 Calcium 8.6 Total Bilirubin 0.4 AST 18 ALT 31 Alkaline Phosphatase 76 Total Protein 6.1 L Albumin 3.0 L RPR Titer Nonreactive a/p: continue alcohol detox protocol ensure and double portions ordered shampoo ordered
[2018-10-21] MEDS: THIAMINE HCL 100 MG TABLET (FP) PO SCH (22:41)
[2018-10-22] MEDS: chlordiazePOXIDE 5 MG CAPSULE PO SCH ×2 (06:11→09:44)
--- NOTE | 2018-10-22 08:58 | PN ---
S Progress Note (SOAP) Subjective: alert complaint of dry skin,no withdrawal symptom Objective: 10/22/18 08:55 Vital Signs Temperature 98.1 F 10/22/18 06:50 Pulse Rate 67 10/22/18 06:50 Respiratory Rate 18 10/22/18 06:50 Blood Pressure 115/75 10/22/18 06:50 O2 Sat by Pulse Oximetry (%) Assessment: 10/22/18 08:55 no withdrawal symptom 10/22/18 08:57 lachydrin for dry skin Plan: discharge today,follow up with loan [facility] for further level of care
--- NOTE | 2018-10-22 09:03 | DS ---
[facility] Detox Discharge Summary Admission Date: 10/19/18 Discharge Date: 10/22/18 - History Present History: Alcohol Dependence, Cannabis Dependence, Cocaine Dependence Additional Comments: follow up with loan [facility]re[facility] arrangemant Pertinent Past History: hypertension dry skin nicotine dependence - Physical Exam Results Vital Signs: Vital Signs Temperature 98.1 F 10/22/18 06:50 Pulse Rate 67 10/22/18 06:50 Respiratory Rate 18 10/22/18 06:50 Blood Pressure 115/75 10/22/18 06:50 O2 Sat by Pulse Oximetry (%) Pertinent Admission Physical Exam Findings: withdrawal signs and symptom Laboratory Last Values WBC 4.4 K/mm3 (4.0-10.0) 10/20/18 07:00 RBC 4.14 M/mm3 (4.00-5.60) 10/20/18 07:00 Hgb 13.1 GM/dL (11.7-16.9) 10/20/18 07:00 Hct 38.9 % (35.4-49) 10/20/18 07:00 MCV 94.1 fl (80-96) 10/20/18 07:00 MCH 31.7 pg (25.7-33.7) 10/20/18 07:00 MCHC 33.7 g/dl (32.0-35.9) 10/20/18 07:00 RDW 15.3 % (11.9-15.9) 10/20/18 07:00 Plt Count 190 K/MM3 (134-434) 10/20/18 07:00 MPV 8.3 fl (7.5-11.1) 10/20/18 07:00 Sodium 139 mmol/L (136-145) 10/20/18 07:00 Potassium 4.1 mmol/L (3.5-5.1) 10/20/18 07:00 Chloride 105 mmol/L (98-107) 10/20/18 07:00 Carbon Dioxide 24 mmol/L (21-32) 10/20/18 07:00 Anion Gap 10 MMOL/L (8-16) 10/20/18 07:00 BUN 18 mg/dL (7-18) 10/20/18 07:00 Creatinine 1.3 mg/dL (0.55-1.3) 10/20/18 07:00 Creat Clearance w eGFR 58.43 (>60) 10/20/18 07:00 Random Glucose 81 mg/dL (74-106) 10/20/18 07:00 Calcium 8.6 mg/dL (8.5-10.1) 10/20/18 07:00 Total Bilirubin 0.4 mg/dL (0.2-1) 10/20/18 07:00 AST 18 U/L (15-37) 10/20/18 07:00 ALT 31 U/L (13-61) 10/20/18 07:00 Alkaline Phosphatase 76 U/L (45-117) 10/20/18 07:00 Total Protein 6.1 g/dl (6.4-8.2) L 10/20/18 07:00 Albumin 3.0 g/dl (3.4-5.0) L 10/20/18 07:00 RPR Titer Nonreactive (NONREACTIVE) 10/20/18 07:00 - Treatment Hospital Course: Detox Protocol Followed, Detoxed Safely, Responded well, Discharged Condition Good, Rehab Referral Accepted Patient has Accepted a Rehab Referral to: [facility] - Medication Discharge Medications: Ambulatory Orders Amlodipine Besylate [Norvasc -] 10 mg PO DAILY #14 tablet 10/22/18 - AMA Did Patient Leave Against Medical Advice: No
[2018-10-22] MEDS: amLODIPine BESYLATE 10 MG TABLET (FP) PO SCH (09:34)
[2018-10-22] MEDS: PRENATAL VITAMINS W/ FOLIC ACID TABLET (FP) PO SCH (09:34)
[2018-10-22 09:37] VITALS: BP 139/79; PULSE 87; TEMP 98.6
[2018-10-22] MEDS: NICOTINE 14 MG/24 HOURS TOPICAL PATCH TD SCH (09:44)
[2018-10-22] MEDS ORDERED: AMMONIUM LACTATE 12% LOTION 225 GM BOTTLE TP SCH (10:00)
[2018-10-23] MEDS ORDERED: chlordiazePOXIDE HCL 10 MG CAPSULE PO SCH (05:00)
== END 2018-10-22 09:44 | disposition home or self-care (01) | DRG 774 ==
LOC: YASAS 22:01 → Y3N 23:38 → Y6N 10-20 21:56
PROVIDERS: ADMIT Surgery; ATTEND Surgery
PROC: HZ2ZZZZ Detoxification Services for Substance Abuse Treatment (ICD-10-PCS; principal; 2018-10-19)
DX: F10.230 Alcohol dependence with withdrawal, uncomplicated (principal); F14.20 Cocaine dependence, uncomplicated; F12.20 Cannabis dependence, uncomplicated; F17.210 Nicotine dependence, cigarettes, uncomplicated; F19.24 Other psychoactive substance dependence with psychoactive substance-induced mood disorder; I10 Essential (primary) hypertension; L85.3 Xerosis cutis
CPT/HCPCS: 36415; 80053; 85027; 86593

== ENCOUNTER 2018-12-21 08:20 | Inpatient (IN) | payer OTHER ==
[2018-12-21 09:39] VITALS: BMI 23.0
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
[2018-12-21] MEDS ORDERED: chlordiazePOXIDE HCL 25 MG CAPSULE PO PRN (09:56)
[2018-12-21] MEDS ORDERED: ACETAMINOPHEN 325 MG TABLET (FP) PO PRN ×2 (09:56)
[2018-12-21] MEDS ORDERED: IBUPROFEN 400 MG TABLET (FP) PO PRN (09:56)
[2018-12-21] MEDS ORDERED: hydrOXYzine PAMOATE 25 MG CAPSULE (FP) PO PRN (09:56)
[2018-12-21] MEDS ORDERED: MAGNESIUM CITRATE 300 ML BOTTLE PO PRN (09:56)
[2018-12-21] MEDS ORDERED: MELATONIN 5 MG TABLETS PO PRN (09:56)
[2018-12-21] MEDS ORDERED: MAGNESIUM HYDROX 2400MG/30ML ORAL SUSPENSION 30 ML CUP PO PRN (09:56)
[2018-12-21] MEDS ORDERED: NICOTINE POLACRILEX 2 MG GUM BUC PRN (09:56)
[2018-12-21] MEDS ORDERED: METHOCARBAMOL 500 MG TABLET PO PRN (09:56)
[2018-12-21] MEDS ORDERED: BISMUTH SUBSALICYLATE 262 MG/15 ML BTL PO PRN (09:56)
[2018-12-21] MEDS ORDERED: MAG HYDROX/AL HYDROX/SIMETH 30 ML UNIT-DOSE CUP PO PRN (09:56)
[2018-12-21] MEDS ORDERED: MENTHOL/PHENOL 1 EACH UD MM PRN (09:56)
[2018-12-21] MEDS: SELENIUM SULFIDE 2.5% LOTION 4 OZ. TP SCH (10:59)
[2018-12-21] MEDS: PRENATAL VITAMINS W/ FOLIC ACID TABLET (FP) PO SCH (10:59)
[2018-12-21] MEDS: chlordiazePOXIDE HCL 25 MG CAPSULE PO SCH ×3 (10:59→22:17)
[2018-12-21] MEDS: NICOTINE 7 MG/24 HOURS TOPICAL PATCH TD SCH (11:00)
[2018-12-21] MEDS: HYDROCORTISONE 0.5% TOPICAL CREAM 30 GM TUBE TP SCH ×2 (11:00→22:18)
[2018-12-21] MEDS: TOLNAFTATE 1% CREAM 15 GM TUBE TP SCH ×2 (11:00→22:18)
[2018-12-21 12:11] LABS: HEMATOCRIT 46.6 % (35.4-49); HEMOGLOBIN 15.4 GM/dL (11.7-16.9); MCH 31.9 pg (25.7-33.7); MCHC 33.2 g/dl (32.0-35.9); MEAN CELL VOLUME 96.4 fl (80-96); PLATELET COUNT 194 K/MM3 (134-434); RBC 4.83 M/mm3 (4.00-5.60); RDW 14.8 % (11.9-15.9); WHITE BLOOD COUNT 3.7 K/mm3 (4.0-10.0)
[2018-12-21 12:19] LABS: ALBUMIN 3.7 g/dl (3.4-5.0); ALK PHOS 91 U/L (45-117); ANION GAP 7 MMOL/L (8-16); BILIRUBIN,TOTAL 0.6 mg/dL (0.2-1); BLOOD UREA NITROGEN 23 mg/dL (7-18); CALCIUM 9.4 mg/dL (8.5-10.1); CHLORIDE 102 mmol/L (98-107); CO2 30 mmol/L (21-32); CREATININE 1.4 mg/dL (0.55-1.3); GLUCOSE,RANDOM 118 mg/dL (74-106); SGOT/AST 25 U/L (15-37); SGPT/ALT 26 U/L (13-61); SODIUM 138 mmol/L (136-145); TOT PROT 7.5 g/dl (6.4-8.2)
[2018-12-21 19:19] LABS: PH,URINE 5.5 (5.0-8.0); URINE APPEARANCE TURBID; URINE BILIRUBIN NEGATIVE (NEGATIVE); URINE COLOR YELLOW; URINE GLUCOSE (UA) NEGATIVE (NEGATIVE); URINE KETONE NEGATIVE (NEGATIVE); URINE LEUK ESTERASE NEGATIVE (NEGATIVE); URINE NITRITE NEGATIVE (NEGATIVE); URINE PROTEIN NEGATIVE (NEGATIVE); URINE UROBILINOGEN 0.2 mg/dL (0.2-1.0)
[2018-12-21] MEDS: THIAMINE HCL 100 MG TABLET (FP) PO SCH (22:17)
[2018-12-22] MEDS: chlordiazePOXIDE HCL 25 MG CAPSULE PO SCH ×4 (05:28→22:11)
[2018-12-22] MEDS: PRENATAL VITAMINS W/ FOLIC ACID TABLET (FP) PO SCH (10:01)
[2018-12-22] MEDS: SELENIUM SULFIDE 2.5% LOTION 4 OZ. TP SCH (10:01)
[2018-12-22] MEDS: HYDROCORTISONE 0.5% TOPICAL CREAM 30 GM TUBE TP SCH ×2 (10:01→22:12)
[2018-12-22] MEDS: IBUPROFEN 600 MG TABLET (FP) PO PRN ×2 (10:02→17:01)
[2018-12-22] MEDS: TOLNAFTATE 1% CREAM 15 GM TUBE TP SCH ×2 (10:02→22:12)
[2018-12-22] MEDS: NICOTINE 7 MG/24 HOURS TOPICAL PATCH TD SCH (10:04)
--- NOTE | 2018-12-22 11:26 | PN ---
[facility] CIWA - CIWA Score Nausea/Vomitin-No Nausea/No Vomiting Muscle Tremors: 3 Anxiety: 2 Agitation: 2 Paroxysmal Sweats: 1-Minimal Palms Moist Orientation: 1-Uncertain about Date Tacttile Disturbances: 0-None Auditory Disturbances: 0-None Visual Disturbances: 0-None Headache: 1-Very Mild CIWA-Ar Total Score: 10 S Progress Note (SOAP) Subjective: chronic back pain taking motrin 600 mg po prn at home denies gi distress discuss risks of gi in chronic motrin consumption Objective: 12/22/18 11:27 Vital Signs Temperature 97.0 F L 12/22/18 09:32 Pulse Rate 84 12/22/18 09:32 Respiratory Rate 20 12/22/18 09:32 Blood Pressure 134/91 12/22/18 09:32 O2 Sat by Pulse Oximetry (%) Laboratory Last Values WBC 3.7 K/mm3 (4.0-10.0) L 12/21/18 10:00 RBC 4.83 M/mm3 (4.00-5.60) 12/21/18 10:00 Hgb 15.4 GM/dL (11.7-16.9) 12/21/18 10:00 Hct 46.6 % (35.4-49) D 12/21/18 10:00 MCV 96.4 fl (80-96) H 12/21/18 10:00 MCH 31.9 pg (25.7-33.7) 12/21/18 10:00 MCHC 33.2 g/dl (32.0-35.9) 12/21/18 10:00 RDW 14.8 % (11.9-15.9) 12/21/18 10:00 Plt Count 194 K/MM3 (134-434) 12/21/18 10:00 MPV 8.0 fl (7.5-11.1) 12/21/18 10:00 Sodium 138 mmol/L (136-145) 12/21/18 10:00 Potassium 4.0 mmol/L (3.5-5.1) 12/21/18 10:00 Chloride 102 mmol/L (98-107) 12/21/18 10:00 Carbon Dioxide 30 mmol/L (21-32) 12/21/18 10:00 Anion Gap 7 MMOL/L (8-16) L 12/21/18 10:00 BUN 23 mg/dL (7-18) H 12/21/18 10:00 Creatinine 1.4 mg/dL (0.55-1.3) H 12/21/18 10:00 Creat Clearance w eGFR 53.64 (>60) 12/21/18 10:00 Random Glucose 118 mg/dL (74-106) H 12/21/18 10:00 Calcium 9.4 mg/dL (8.5-10.1) 12/21/18 10:00 Total Bilirubin 0.6 mg/dL (0.2-1) 12/21/18 10:00 AST 25 U/L (15-37) 12/21/18 10:00 ALT 26 U/L (13-61) 12/21/18 10:00 Alkaline Phosphatase 91 U/L (45-117) 12/21/18 10:00 Total Protein 7.5 g/dl (6.4-8.2) 12/21/18 10:00 Albumin 3.7 g/dl (3.4-5.0) 12/21/18 10:00 Urine Color Yellow 12/21/18 13:00 Urine Appearance Turbid 12/21/18 13:00 Urine pH 5.5 (5.0-8.0) 12/21/18 13:00 Ur Specific [place] 1.024 (1.010-1.035) 12/21/18 13:00 Urine Protein Negative (NEGATIVE) 12/21/18 13:00 Urine Glucose (UA) Negative (NEGATIVE) 12/21/18 13:00 Urine Ketones Negative (NEGATIVE) 12/21/18 13:00 Urine Blood Negative (NEGATIVE) 12/21/18 13:00 Urine Nitrite Negative (NEGATIVE) 12/21/18 13:00 Urine Bilirubin Negative (NEGATIVE) 12/21/18 13:00 Urine Urobilinogen 0.2 mg/dL (0.2-1.0) 12/21/18 13:00 Ur Leukocyte Esterase Negative (NEGATIVE) 12/21/18 13:00 RPR Titer Nonreactive (NONREACTIVE) 12/21/18 10:00 lab noted Assessment: 12/22/18 11:28 withdrawal sx hypertension Plan: continue detox patient taking amlopidine for hypertension current bp managed by librium hold amlodipin at present time
[2018-12-22] MEDS: THIAMINE HCL 100 MG TABLET (FP) PO SCH (22:11)
[2018-12-23] MEDS: chlordiazePOXIDE HCL 25 MG CAPSULE PO SCH (06:13)
[2018-12-23 06:19] VITALS: PULSE 67
[2018-12-23] MEDS: IBUPROFEN 600 MG TABLET (FP) PO PRN (06:56)
[2018-12-23] MEDS ORDERED: amLODIPine BESYLATE 10 MG TABLET (FP) PO SCH (10:00)
[2018-12-23] MEDS: NICOTINE 7 MG/24 HOURS TOPICAL PATCH TD SCH (10:12)
[2018-12-23] MEDS: PRENATAL VITAMINS W/ FOLIC ACID TABLET (FP) PO SCH (10:12)
[2018-12-23] MEDS: TOLNAFTATE 1% CREAM 15 GM TUBE TP SCH (10:12)
[2018-12-23] MEDS: SELENIUM SULFIDE 2.5% LOTION 4 OZ. TP SCH (10:12)
[2018-12-23 10:13] VITALS: BP 125/83; TEMP 97.1
[2018-12-23] MEDS: HYDROCORTISONE 0.5% TOPICAL CREAM 30 GM TUBE TP SCH (10:13)
--- NOTE | 2018-12-23 10:16 | DS ---
[facility] Detox Discharge Summary Admission Date: 12/21/18 Discharge Date: 12/23/18 - History Present History: Alcohol Dependence Additional Comments: 48 years old male admitted on 12/21/18 for alcohol withdrawal stabilization feeling better today wants to go to rehab patient demands to go to [facility] refuses to go to "[facility]" unit patient refuses to go to [facility] patient is alert no acute distress denies suicidal ideation patient rather to go home patient abort [facility] opportunity Pertinent Past History: bring in medication list and lab report to follow up appointment - Physical Exam Results Vital Signs: Vital Signs Temperature 97.1 F L 12/23/18 10:11 Pulse Rate 67 12/23/18 10:11 Respiratory Rate 20 12/23/18 10:11 Blood Pressure 125/83 12/23/18 10:11 O2 Sat by Pulse Oximetry (%) Pertinent Admission Physical Exam Findings: alcohol withdrawal sx Laboratory Last Values WBC 3.7 K/mm3 (4.0-10.0) L 12/21/18 10:00 RBC 4.83 M/mm3 (4.00-5.60) 12/21/18 10:00 Hgb 15.4 GM/dL (11.7-16.9) 12/21/18 10:00 Hct 46.6 % (35.4-49) D 12/21/18 10:00 MCV 96.4 fl (80-96) H 12/21/18 10:00 MCH 31.9 pg (25.7-33.7) 12/21/18 10:00 MCHC 33.2 g/dl (32.0-35.9) 12/21/18 10:00 RDW 14.8 % (11.9-15.9) 12/21/18 10:00 Plt Count 194 K/MM3 (134-434) 12/21/18 10:00 MPV 8.0 fl (7.5-11.1) 12/21/18 10:00 Sodium 138 mmol/L (136-145) 12/21/18 10:00 Potassium 4.0 mmol/L (3.5-5.1) 12/21/18 10:00 Chloride 102 mmol/L (98-107) 12/21/18 10:00 Carbon Dioxide 30 mmol/L (21-32) 12/21/18 10:00 Anion Gap 7 MMOL/L (8-16) L 12/21/18 10:00 BUN 23 mg/dL (7-18) H 12/21/18 10:00 Creatinine 1.4 mg/dL (0.55-1.3) H 12/21/18 10:00 Creat Clearance w eGFR 53.64 (>60) 12/21/18 10:00 Random Glucose 118 mg/dL (74-106) H 12/21/18 10:00 Calcium 9.4 mg/dL (8.5-10.1) 12/21/18 10:00 Total Bilirubin 0.6 mg/dL (0.2-1) 12/21/18 10:00 AST 25 U/L (15-37) 12/21/18 10:00 ALT 26 U/L (13-61) 12/21/18 10:00 Alkaline Phosphatase 91 U/L (45-117) 12/21/18 10:00 Total Protein 7.5 g/dl (6.4-8.2) 12/21/18 10:00 Albumin 3.7 g/dl (3.4-5.0) 12/21/18 10:00 Urine Color Yellow 12/21/18 13:00 Urine Appearance Turbid 12/21/18 13:00 Urine pH 5.5 (5.0-8.0) 12/21/18 13:00 Ur Specific [place] 1.024 (1.010-1.035) 12/21/18 13:00 Urine Protein Negative (NEGATIVE) 12/21/18 13:00 Urine Glucose (UA) Negative (NEGATIVE) 12/21/18 13:00 Urine Ketones Negative (NEGATIVE) 12/21/18 13:00 Urine Blood Negative (NEGATIVE) 12/21/18 13:00 Urine Nitrite Negative (NEGATIVE) 12/21/18 13:00 Urine Bilirubin Negative (NEGATIVE) 12/21/18 13:00 Urine Urobilinogen 0.2 mg/dL (0.2-1.0) 12/21/18 13:00 Ur Leukocyte Esterase Negative (NEGATIVE) 12/21/18 13:00 RPR Titer Nonreactive (NONREACTIVE) 12/21/18 10:00 lab noted - Treatment Hospital Course: Detox Protocol Followed, Detoxed Safely, Responded well, Discharged Condition Good, Rehab Referral Accepted Patient has Accepted a Rehab Referral to: [facility] - Medication Discharge Medications: Ambulatory Orders Amlodipine Besylate [Norvasc -] 10 mg PO DAILY #14 tablet 10/22/18 - Diagnosis (1) Alcohol dependence with withdrawal, uncomplicated Status: Acute (2) Substance induced mood disorder Status: Suspected (3) Hypertension Status: Chronic Qualifiers: Hypertension type: essential hypertension Qualified Code(s): I10 - Essential (primary) hypertension (4) Nicotine dependence Status: Acute Qualifiers: Nicotine product type: cigarettes Substance use status: in withdrawal Qualified Code(s): F17.213 - Nicotine dependence, cigarettes, with withdrawal (5) Weight loss Status: Acute - AMA Did Patient Leave Against Medical Advice: No
[2018-12-23] MEDS ORDERED: chlordiazePOXIDE HCL 10 MG CAPSULE PO SCH (11:00)
[2018-12-23] MEDS ORDERED: chlordiazePOXIDE HCL 10 MG CAPSULE PO PRN (11:00)
[2018-12-24] MEDS ORDERED: chlordiazePOXIDE HCL 10 MG CAPSULE PO SCH (11:00)
== END 2018-12-23 11:15 | disposition home or self-care (01) | DRG 775 ==
LOC: YASAS 08:20 → Y6N 09:57 → Y3N 10:13
PROVIDERS: ADMIT Surgery; ATTEND Surgery
PROC: HZ2ZZZZ Detoxification Services for Substance Abuse Treatment (ICD-10-PCS; principal; 2018-12-21)
DX: F10.230 Alcohol dependence with withdrawal, uncomplicated (principal); F17.213 Nicotine dependence, cigarettes, with withdrawal; F19.24 Other psychoactive substance dependence with psychoactive substance-induced mood disorder; I10 Essential (primary) hypertension; R63.4 Abnormal weight loss; L21.9 Seborrheic dermatitis, unspecified; B35.3 Tinea pedis; Z91.14 Patient's other noncompliance with medication regimen; Z87.438 Personal history of other diseases of male genital organs
CPT/HCPCS: 36415; 80053; 81003; 85027; 86593

== ENCOUNTER 2019-02-03 19:51 | Inpatient (IN) | payer OTHER ==
[2019-02-03 21:01] VITALS: BMI 25.4
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
[2019-02-03] MEDS ORDERED: DICYCLOMINE HCL 10 MG CAPSULE PO PRN (22:27)
[2019-02-03] MEDS ORDERED: MAGNESIUM HYDROX 2400MG/30ML ORAL SUSPENSION 30 ML CUP PO PRN (22:27)
[2019-02-03] MEDS ORDERED: ACETAMINOPHEN 325 MG TABLET (FP) PO PRN ×2 (22:27)
[2019-02-03] MEDS ORDERED: METHOCARBAMOL 500 MG TABLET PO PRN (22:27)
[2019-02-03] MEDS ORDERED: IBUPROFEN 400 MG TABLET (FP) PO PRN (22:27)
[2019-02-03] MEDS ORDERED: MAGNESIUM CITRATE 300 ML BOTTLE PO PRN (22:27)
[2019-02-03] MEDS ORDERED: MENTHOL/PHENOL 1 EACH UD MM PRN (22:27)
[2019-02-03] MEDS ORDERED: guaiFENesin 200 MG/10 ML 10 ML UNIT-DOSE CUPS PO PRN (22:27)
[2019-02-03] MEDS ORDERED: BISMUTH SUBSALICYLATE 524 MG/30 ML UD PO PRN (22:27)
[2019-02-03] MEDS ORDERED: P-EPHED 60MG/TRIPROLIDI 2.5MG TABLET PO PRN (22:27)
[2019-02-03] MEDS ORDERED: MELATONIN 5 MG TABLETS PO PRN (22:27)
[2019-02-03] MEDS ORDERED: ONDANSETRON *ODT* 4 MG TABLET SL PRN (22:27)
[2019-02-03] MEDS ORDERED: MAG HYDROX/AL HYDROX/SIMETH 30 ML UNIT-DOSE CUP PO PRN (22:27)
[2019-02-03] MEDS ORDERED: hydrOXYzine PAMOATE 25 MG CAPSULE (FP) PO PRN (22:27)
[2019-02-03] MEDS ORDERED: chlordiazePOXIDE HCL 25 MG CAPSULE PO PRN (22:27)
[2019-02-03] MEDS ORDERED: NICOTINE POLACRILEX 2 MG GUM BUC PRN (22:27)
[2019-02-03] MEDS: chlordiazePOXIDE HCL 25 MG CAPSULE PO SCH (23:35)
[2019-02-04] MEDS: chlordiazePOXIDE HCL 25 MG CAPSULE PO SCH ×4 (07:02→22:23)
[2019-02-04 09:36] LABS: HEMATOCRIT 44.4 % (35.4-49); HEMOGLOBIN 14.7 GM/dL (11.7-16.9); MCH 31.4 pg (25.7-33.7); MEAN CELL VOLUME 95.1 fl (80-96); MEAN PLT VOLUME 7.9 fl (7.5-11.1); PLATELET COUNT 243 K/MM3 (134-434); RBC 4.67 M/mm3 (4.00-5.60); RDW 15.1 % (11.9-15.9); WHITE BLOOD COUNT 3.6 K/mm3 (4.0-10.0)
[2019-02-04 09:52] LABS: ALBUMIN 3.3 g/dl (3.4-5.0); BILIRUBIN,TOTAL 0.4 mg/dL (0.2-1); BLOOD UREA NITROGEN 19.9 mg/dL (7-18); CALCIUM 8.5 mg/dL (8.5-10.1); CREATININE 1.4 mg/dL (0.55-1.3); POTASSIUM 4.8 mmol/L (3.5-5.1); TOT PROT 6.8 g/dl (6.4-8.2)
[2019-02-04] MEDS ORDERED: NICOTINE 21 MG/24 HOURS TOPICAL PATCH TD SCH (10:00)
[2019-02-04] MEDS ORDERED: PRENATAL VITAMINS W/ FOLIC ACID TABLET (FP) PO SCH (10:00)
--- NOTE | 2019-02-04 10:17 | PN ---
S CIWA - CIWA Score Nausea/Vomitin Muscle Tremors: 2 Anxiety: 2 Agitation: 2 Paroxysmal Sweats: 1-Minimal Palms Moist Orientation: 0-Oriented Tacttile Disturbances: 1-Very Mild Itch/Numbness Auditory Disturbances: 1-Very Mild Visual Disturbances: 0-None Headache: 2-Mild CIWA-Ar Total Score: 13 [facility] Progress Note (SOAP) Subjective: alert,irritable,anxious,interrupted sleep,tremor Objective: 02/04/19 10:15 Vital Signs Temperature 97.0 F L 02/04/19 09:13 Pulse Rate 75 02/04/19 09:13 Respiratory Rate 18 02/04/19 09:13 Blood Pressure 150/75 02/04/19 09:13 O2 Sat by Pulse Oximetry (%) 02/04/19 10:15 Laboratory Last Values WBC 3.6 K/mm3 (4.0-10.0) L 02/04/19 07:30 RBC 4.67 M/mm3 (4.00-5.60) 02/04/19 07:30 Hgb 14.7 GM/dL (11.7-16.9) 02/04/19 07:30 Hct 44.4 % (35.4-49) 02/04/19 07:30 MCV 95.1 fl (80-96) 02/04/19 07:30 MCH 31.4 pg (25.7-33.7) 02/04/19 07:30 MCHC 33.0 g/dl (32.0-35.9) 02/04/19 07:30 RDW 15.1 % (11.9-15.9) 02/04/19 07:30 Plt Count 243 K/MM3 (134-434) D 02/04/19 07:30 MPV 7.9 fl (7.5-11.1) 02/04/19 07:30 Sodium 140 mmol/L (136-145) 02/04/19 07:30 Potassium 4.8 mmol/L (3.5-5.1) 02/04/19 07:30 Chloride 107 mmol/L (98-107) 02/04/19 07:30 Carbon Dioxide 29 mmol/L (21-32) 02/04/19 07:30 Anion Gap 4 MMOL/L (8-16) L 02/04/19 07:30 BUN 19.9 mg/dL (7-18) H 02/04/19 07:30 Creatinine 1.4 mg/dL (0.55-1.3) H 02/04/19 07:30 Est GFR (CKD-EPI)AfAm 67.42 02/04/19 07:30 Est GFR (CKD-EPI)NonAf 58.17 02/04/19 07:30 Random Glucose 58 mg/dL (74-106) L 02/04/19 07:30 Calcium 8.5 mg/dL (8.5-10.1) 02/04/19 07:30 Total Bilirubin 0.4 mg/dL (0.2-1) 02/04/19 07:30 AST 17 U/L (15-37) 02/04/19 07:30 ALT 33 U/L (13-61) 02/04/19 07:30 Alkaline Phosphatase 82 U/L (45-117) 02/04/19 07:30 Total Protein 6.8 g/dl (6.4-8.2) 02/04/19 07:30 Albumin 3.3 g/dl (3.4-5.0) L 02/04/19 07:30 02/04/19 10:15 rpr pending Assessment: 02/04/19 10:15 withdrawal symptom Plan: continue detox,hydration,leukopenia,with elevationon bun,creatinine,repeat cbc, cmp in am
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
[2019-02-04] MEDS ORDERED: SELENIUM SULFIDE 2.25% 180 ML SHAMPOO TP SCH (15:00)
[2019-02-04] MEDS ORDERED: amLODIPine BESYLATE 10 MG TABLET (FP) PO SCH (15:00)
[2019-02-04] MEDS ORDERED: TOLNAFTATE 1% CREAM 15 GM TUBE TP SCH (22:00)
[2019-02-04] MEDS ORDERED: SUVOREXANT 10 MG TABLET PO PRN (22:00)
[2019-02-04] MEDS ORDERED: THIAMINE HCL 100 MG TABLET (FP) PO SCH (22:00)
[2019-02-05] MEDS: chlordiazePOXIDE HCL 25 MG CAPSULE PO SCH (06:25)
[2019-02-05 06:29] VITALS: BP 147/86; PULSE 68; TEMP 97.5
--- NOTE | 2019-02-05 09:20 | PN ---
[facility] Progress Note Note: pt refused to speak to staff, was dressed and walked off the unit. Pt was asked to wait for discharge papers but refused. security was called to meet patient downstairs.
--- NOTE | 2019-02-05 09:22 | DS ---
[facility] Detox Discharge Summary Admission Date: 02/03/19 - History Present History: Alcohol Dependence, Cannabis Dependence, Cocaine Dependence - Physical Exam Results Vital Signs: Vital Signs Temperature 97.5 F L 02/05/19 06:00 Pulse Rate 68 02/05/19 06:00 Respiratory Rate 18 02/05/19 06:00 Blood Pressure 147/86 02/05/19 06:00 O2 Sat by Pulse Oximetry (%) - Medication Discharge Medications: Ambulatory Orders Amlodipine Besylate [Norvasc -] 10 mg PO DAILY 02/03/19 - Diagnosis (1) Alcohol dependence with withdrawal, uncomplicated Current Visit: Yes Status: Chronic (2) Cannabis abuse, uncomplicated Current Visit: Yes Status: Chronic (3) Cocaine dependence Current Visit: Yes Status: Chronic Qualifiers: Substance use status: uncomplicated Qualified Code(s): F14.20 - Cocaine dependence, uncomplicated (4) Substance-induced sleep disorder Current Visit: Yes Status: Acute (5) Hypertension Current Visit: Yes Status: Chronic Qualifiers: Hypertension type: essential hypertension Qualified Code(s): I10 - Essential (primary) hypertension (6) Mood disorder Current Visit: Yes Status: Chronic (7) Nicotine dependence Current Visit: Yes Status: Chronic Qualifiers: Nicotine product type: cigarettes Substance use status: uncomplicated Qualified Code(s): F17.210 - Nicotine dependence, cigarettes, uncomplicated (8) Substance induced mood disorder Current Visit: Yes Status: Suspected (9) Impulse control disorder Current Visit: Yes Status: Ruled-out (10) Seborrheic dermatitis of scalp Current Visit: Yes Status: Acute (11) Tinea pedis Current Visit: Yes Status: Acute Qualifiers: Laterality: bilateral Qualified Code(s): B35.3 - Tinea pedis (12) Personality disorder Current Visit: No Status: Chronic (13) Antisocial personality disorder Current Visit: No Status: Suspected - AMA Did Patient Leave Against Medical Advice: Yes (walked off the unit; refused any d/c papers or aftercare)
[2019-02-05 11:38] LABS: HEMATOCRIT 42.1 % (35.4-49); HEMOGLOBIN 13.8 GM/dL (11.7-16.9); MCH 31.4 pg (25.7-33.7); MCHC 32.7 g/dl (32.0-35.9); MEAN CELL VOLUME 96.1 fl (80-96); MEAN PLT VOLUME 8.1 fl (7.5-11.1); PLATELET COUNT 227 K/MM3 (134-434); RBC 4.38 M/mm3 (4.00-5.60); RDW 14.9 % (11.9-15.9)
[2019-02-05 12:13] LABS: ALBUMIN 3.1 g/dl (3.4-5.0); BILIRUBIN,TOTAL 0.3 mg/dL (0.2-1); BLOOD UREA NITROGEN 16.3 mg/dL (7-18); CALCIUM 8.4 mg/dL (8.5-10.1); CREATININE 1.3 mg/dL (0.55-1.3); POTASSIUM 4.7 mmol/L (3.5-5.1); TOT PROT 6.4 g/dl (6.4-8.2)
[2019-02-05] MEDS ORDERED: chlordiazePOXIDE HCL 10 MG CAPSULE PO PRN (23:00)
[2019-02-05] MEDS ORDERED: chlordiazePOXIDE HCL 10 MG CAPSULE PO SCH (23:00)
[2019-02-06] MEDS ORDERED: chlordiazePOXIDE HCL 10 MG CAPSULE PO SCH (23:00)
== END 2019-02-05 08:45 | disposition left against medical advice (07) | DRG 770 ==
LOC: YASAS 19:51 → Y6N 22:38
PROVIDERS: ADMIT Surgery; ATTEND Surgery
PROC: HZ2ZZZZ Detoxification Services for Substance Abuse Treatment (ICD-10-PCS; principal; 2019-02-03)
DX: F10.230 Alcohol dependence with withdrawal, uncomplicated (principal); F14.20 Cocaine dependence, uncomplicated; F12.20 Cannabis dependence, uncomplicated; F17.210 Nicotine dependence, cigarettes, uncomplicated; F39 Unspecified mood [affective] disorder; F19.24 Other psychoactive substance dependence with psychoactive substance-induced mood disorder; F19.282 Other psychoactive substance dependence with psychoactive substance-induced sleep disorder; F60.3 Borderline personality disorder; F63.9 Impulse disorder, unspecified; I10 Essential (primary) hypertension; B35.3 Tinea pedis; L21.9 Seborrheic dermatitis, unspecified; Z86.19 Personal history of other infectious and parasitic diseases; Z59.0 Homelessness
CPT/HCPCS: 36415; 80053; 85027; 86593

== ENCOUNTER 2019-03-02 16:13 | Inpatient (IN) | payer OTHER ==
[2019-03-02 20:06] VITALS: BMI 23.1
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
[2019-03-02] MEDS ORDERED: METHOCARBAMOL 500 MG TABLET PO PRN (21:47)
[2019-03-02] MEDS ORDERED: MELATONIN 5 MG TABLETS PO PRN (21:47)
[2019-03-02] MEDS ORDERED: MENTHOL/PHENOL 1 EACH UD MM PRN (21:47)
[2019-03-02] MEDS ORDERED: hydrOXYzine PAMOATE 25 MG CAPSULE (FP) PO PRN (21:47)
[2019-03-02] MEDS ORDERED: IBUPROFEN 400 MG TABLET (FP) PO PRN (21:47)
[2019-03-02] MEDS ORDERED: MAGNESIUM HYDROX 2400MG/30ML ORAL SUSPENSION 30 ML CUP PO PRN (21:47)
[2019-03-02] MEDS ORDERED: MAGNESIUM CITRATE 300 ML BOTTLE PO PRN (21:47)
[2019-03-02] MEDS ORDERED: MAG HYDROX/AL HYDROX/SIMETH 30 ML UNIT-DOSE CUP PO PRN (21:47)
[2019-03-02] MEDS ORDERED: ACETAMINOPHEN 325 MG TABLET (FP) PO PRN ×2 (21:47)
[2019-03-02] MEDS ORDERED: BISMUTH SUBSALICYLATE 524 MG/30 ML UD PO PRN (21:47)
[2019-03-02] MEDS: THIAMINE HCL 100 MG TABLET (FP) PO SCH (23:13)
[2019-03-02] MEDS: diazePAM 5 MG TABLET PO SCH (23:14)
[2019-03-03] MEDS: diazePAM 5 MG TABLET PO SCH ×3 (06:38→22:11)
[2019-03-03 09:48] LABS: HEMATOCRIT 41.1 % (35.4-49); HEMOGLOBIN 13.7 GM/dL (11.7-16.9); MCH 31.7 pg (25.7-33.7); MCHC 33.3 g/dl (32.0-35.9); MEAN CELL VOLUME 95.2 fl (80-96); MEAN PLT VOLUME 8.6 fl (7.5-11.1); PLATELET COUNT 226 K/MM3 (134-434); RBC 4.32 M/mm3 (4.00-5.60); RDW 15.2 % (11.9-15.9); WHITE BLOOD COUNT 3.8 K/mm3 (4.0-10.0)
[2019-03-03 09:53] LABS: ALBUMIN 3.1 g/dl (3.4-5.0); BILIRUBIN,TOTAL 0.4 mg/dL (0.2-1); BLOOD UREA NITROGEN 18.5 mg/dL (7-18); CALCIUM 8.7 mg/dL (8.5-10.1); CREATININE 1.3 mg/dL (0.55-1.3); POTASSIUM 4.3 mmol/L (3.5-5.1); TOT PROT 6.1 g/dl (6.4-8.2)
[2019-03-03] MEDS: PRENATAL VITAMINS W/ FOLIC ACID TABLET (FP) PO SCH (10:13)
[2019-03-03] MEDS: NICOTINE 21 MG/24 HOURS TOPICAL PATCH TD SCH (10:14)
[2019-03-03] MEDS: amLODIPine BESYLATE 10 MG TABLET (FP) PO SCH (10:14)
--- NOTE | 2019-03-03 10:35 | PN ---
[facility] CIWA - CIWA Score Nausea/Vomitin-Mild Nausea/No Vomiting Muscle Tremors: 4-Moderate,w/Arms Extend Anxiety: 3 Agitation: 3 Paroxysmal Sweats: 1-Minimal Palms Moist Orientation: 1-Uncertain about Date Tacttile Disturbances: 1-Very Mild Itch/Numbness Auditory Disturbances: 0-None Visual Disturbances: 0-None Headache: 0-None Present CIWA-Ar Total Score: 14 S Progress Note (SOAP) Subjective: patient is doing well with valium detox protocol tremor anxiety restlessness Objective: 03/03/19 10:34 Vital Signs Temperature 97.8 F 03/03/19 09:16 Pulse Rate 64 03/03/19 09:16 Respiratory Rate 18 03/03/19 09:16 Blood Pressure 138/88 03/03/19 09:16 O2 Sat by Pulse Oximetry (%) Laboratory Last Values WBC 3.8 K/mm3 (4.0-10.0) L 03/03/19 07:00 RBC 4.32 M/mm3 (4.00-5.60) 03/03/19 07:00 Hgb 13.7 GM/dL (11.7-16.9) 03/03/19 07:00 Hct 41.1 % (35.4-49) 03/03/19 07:00 MCV 95.2 fl (80-96) 03/03/19 07:00 MCH 31.7 pg (25.7-33.7) 03/03/19 07:00 MCHC 33.3 g/dl (32.0-35.9) 03/03/19 07:00 RDW 15.2 % (11.9-15.9) 03/03/19 07:00 Plt Count 226 K/MM3 (134-434) 03/03/19 07:00 MPV 8.6 fl (7.5-11.1) 03/03/19 07:00 Sodium 140 mmol/L (136-145) 03/03/19 07:00 Potassium 4.3 mmol/L (3.5-5.1) 03/03/19 07:00 Chloride 107 mmol/L (98-107) 03/03/19 07:00 Carbon Dioxide 30 mmol/L (21-32) 03/03/19 07:00 Anion Gap 4 MMOL/L (8-16) L 03/03/19 07:00 BUN 18.5 mg/dL (7-18) H 03/03/19 07:00 Creatinine 1.3 mg/dL (0.55-1.3) 03/03/19 07:00 Est GFR (CKD-EPI)AfAm 73.74 03/03/19 07:00 Est GFR (CKD-EPI)NonAf 63.62 03/03/19 07:00 Random Glucose 85 mg/dL (74-106) 03/03/19 07:00 Calcium 8.7 mg/dL (8.5-10.1) 03/03/19 07:00 Total Bilirubin 0.4 mg/dL (0.2-1) 03/03/19 07:00 AST 8 U/L (15-37) L 03/03/19 07:00 ALT 15 U/L (13-61) 03/03/19 07:00 Alkaline Phosphatase 71 U/L (45-117) 03/03/19 07:00 Total Protein 6.1 g/dl (6.4-8.2) L 03/03/19 07:00 Albumin 3.1 g/dl (3.4-5.0) L 03/03/19 07:00 lab noted Assessment: 03/03/19 10:34 alcohol withdrawal sx Plan: continue alcohol detox
[2019-03-03] MEDS: diazePAM 5 MG TABLET PO PRN (17:36)
--- NOTE | 2019-03-03 17:42 | CONSULT ---
[facility] Psychiatric Consult - Data Date of interview: 03/03/19 Admission source: [facility] Identifying data: Business Liaison Manager approached patient for psychiatric consultation. Patient stated, " Not right now. i'm going back to sleep. We can do it tomorrow. " Patient informed that another psychiatric consultation will have to be ordered for tomorrow. Psychiatric consultation refused.
[2019-03-03] MEDS: THIAMINE HCL 100 MG TABLET (FP) PO SCH (22:11)
[2019-03-04] MEDS: diazePAM 5 MG TABLET PO SCH ×2 (05:13→17:34)
[2019-03-04] MEDS: amLODIPine BESYLATE 10 MG TABLET (FP) PO SCH (10:02)
[2019-03-04] MEDS: NICOTINE 21 MG/24 HOURS TOPICAL PATCH TD SCH (10:02)
[2019-03-04] MEDS: PRENATAL VITAMINS W/ FOLIC ACID TABLET (FP) PO SCH (10:02)
[2019-03-04] MEDS ORDERED: SELENIUM SULFIDE 2.25% 180 ML SHAMPOO TP SCH (10:45)
--- NOTE | 2019-03-04 11:33 | PN ---
[facility] CIWA - CIWA Score Nausea/Vomitin-No Nausea/No Vomiting Muscle Tremors: 1-None Visible, but Boomer Anxiety: 4-Mod. Anxious/Guarded Agitation: 2 Paroxysmal Sweats: 1-Minimal Palms Moist Orientation: 0-Oriented Tacttile Disturbances: 1-Very Mild Itch/Numbness Auditory Disturbances: 0-None Visual Disturbances: 0-None Headache: 0-None Present CIWA-Ar Total Score: 9 S Progress Note (SOAP) Subjective: c/o anxious, irritability, body aches, interrupted sleep Objective: 03/04/19 11:24 Vital Signs Temperature 97 F L 03/04/19 09:11 Pulse Rate 60 03/04/19 09:11 Respiratory Rate 20 03/04/19 09:11 Blood Pressure 142/92 03/04/19 09:11 O2 Sat by Pulse Oximetry (%) Laboratory Last Values WBC 3.8 K/mm3 (4.0-10.0) L 03/03/19 07:00 RBC 4.32 M/mm3 (4.00-5.60) 03/03/19 07:00 Hgb 13.7 GM/dL (11.7-16.9) 03/03/19 07:00 Hct 41.1 % (35.4-49) 03/03/19 07:00 MCV 95.2 fl (80-96) 03/03/19 07:00 MCH 31.7 pg (25.7-33.7) 03/03/19 07:00 MCHC 33.3 g/dl (32.0-35.9) 03/03/19 07:00 RDW 15.2 % (11.9-15.9) 03/03/19 07:00 Plt Count 226 K/MM3 (134-434) 03/03/19 07:00 MPV 8.6 fl (7.5-11.1) 03/03/19 07:00 Sodium 140 mmol/L (136-145) 03/03/19 07:00 Potassium 4.3 mmol/L (3.5-5.1) 03/03/19 07:00 Chloride 107 mmol/L (98-107) 03/03/19 07:00 Carbon Dioxide 30 mmol/L (21-32) 03/03/19 07:00 Anion Gap 4 MMOL/L (8-16) L 03/03/19 07:00 BUN 18.5 mg/dL (7-18) H 03/03/19 07:00 Creatinine 1.3 mg/dL (0.55-1.3) 03/03/19 07:00 Est GFR (CKD-EPI)AfAm 73.74 03/03/19 07:00 Est GFR (CKD-EPI)NonAf 63.62 03/03/19 07:00 Random Glucose 85 mg/dL (74-106) 03/03/19 07:00 Calcium 8.7 mg/dL (8.5-10.1) 03/03/19 07:00 Total Bilirubin 0.4 mg/dL (0.2-1) 03/03/19 07:00 AST 8 U/L (15-37) L 03/03/19 07:00 ALT 15 U/L (13-61) 03/03/19 07:00 Alkaline Phosphatase 71 U/L (45-117) 03/03/19 07:00 Total Protein 6.1 g/dl (6.4-8.2) L 03/03/19 07:00 Albumin 3.1 g/dl (3.4-5.0) L 03/03/19 07:00 RPR Titer Nonreactive (NONREACTIVE) 03/03/19 07:00 Labs reviewed Assessment: 03/04/19 11:25 Patient Aox3, anxious full ROM, no gait disturbance, ambulating in the unit Plan: increase PO fluids continue detox psych consult : c/o insomnia, anxious and schizophrenia, dismissed psych provider 03/03/19, pt requested another consult Patient requested refills on suboxone: Istop reviewed first and last rx for BUP 02/09/19 for 10 days. utox on admission negative for opiates or BUP. Patient advised to follow up with prescribing provider upon discharge.
[2019-03-04] MEDS: TOLNAFTATE 1% CREAM 15 GM TUBE TP SCH ×2 (12:50→22:18)
[2019-03-04] MEDS: NICOTINE POLACRILEX 2 MG GUM BUC PRN ×2 (12:50→14:56)
[2019-03-04] MEDS: diazePAM 5 MG TABLET PO PRN ×2 (14:33→22:17)
[2019-03-04] MEDS: GABAPENTIN 100 MG CAPSULE (FP) PO SCH ×2 (14:55→22:17)
[2019-03-04] MEDS: THIAMINE HCL 100 MG TABLET (FP) PO SCH (22:17)
[2019-03-05] MEDS: GABAPENTIN 100 MG CAPSULE (FP) PO SCH (05:44)
[2019-03-05] MEDS ORDERED: diazePAM 5 MG TABLET PO ONE (06:00)
[2019-03-05] MEDS: PRENATAL VITAMINS W/ FOLIC ACID TABLET (FP) PO SCH (09:16)
[2019-03-05] MEDS: amLODIPine BESYLATE 10 MG TABLET (FP) PO SCH (09:16)
[2019-03-05] MEDS: NICOTINE 21 MG/24 HOURS TOPICAL PATCH TD SCH (09:18)
[2019-03-05 09:34] VITALS: BP 158/108; PULSE 78; TEMP 97.2
[2019-03-05] MEDS ORDERED: SELENIUM SULFIDE 2.5% LOTION 4 OZ. TP SCH (10:00)
--- NOTE | 2019-03-05 17:51 | DS ---
[facility] Detox Discharge Summary Admission Date: 03/02/19 Discharge Date: 03/05/19 - History Present History: Alcohol Dependence, Cannabis Dependence, Cocaine Dependence Additional Comments: PATIENT GOING TO [facility] ([place], [place]) FOR AFTERCARE. PATIENT WAS DISCHARGED FROM DETOX UNIT IN STABLE MEDICAL CONDITION. Pertinent Past History: History Of Gonorrhea, HTN, Nicotine Dependence, Schizophrenia, Depression. - Physical Exam Results Vital Signs: Vital Signs Temperature 97.2 F L 03/05/19 09:34 Pulse Rate 78 03/05/19 09:34 Respiratory Rate 6 L 03/05/19 09:34 Blood Pressure 158/108 H 03/05/19 09:34 O2 Sat by Pulse Oximetry (%) Pertinent Admission Physical Exam Findings: WITHDRAWAL SYMPTOMS. Laboratory Tests 03/03/19 03/03/19 03/03/19 07:00 07:00 07:00 WBC 3.8 L RBC 4.32 Hgb 13.7 Hct 41.1 MCV 95.2 MCH 31.7 MCHC 33.3 RDW 15.2 Plt Count 226 MPV 8.6 Sodium 140 Potassium 4.3 Chloride 107 Carbon Dioxide 30 Anion Gap 4 L BUN 18.5 H Creatinine 1.3 Est GFR (CKD-EPI)AfAm 73.74 Est GFR (CKD-EPI)NonAf 63.62 Random Glucose 85 Calcium 8.7 Total Bilirubin 0.4 AST 8 L ALT 15 Alkaline Phosphatase 71 Total Protein 6.1 L Albumin 3.1 L RPR Titer Nonreactive LABS NOTED. - Treatment Hospital Course: Detox Protocol Followed, Detoxed Safely, Responded well, Discharged Condition Good, Rehab Referral Accepted Patient has Accepted a Rehab Referral to: [facility] ([place], [place]). - Medication Discharge Medications: Ambulatory Orders Amlodipine Besylate [Norvasc -] 10 mg PO DAILY 02/03/19 - Diagnosis (1) Alcohol dependence with withdrawal, uncomplicated Status: Acute (2) Cannabis abuse, uncomplicated Status: Chronic (3) Cocaine dependence Status: Chronic Qualifiers: Substance use status: uncomplicated Qualified Code(s): F14.20 - Cocaine dependence, uncomplicated (4) Gonorrhea Status: Chronic (5) Hypertension Status: Chronic Qualifiers: Hypertension type: essential hypertension Qualified Code(s): I10 - Essential (primary) hypertension (6) Nicotine dependence Status: Chronic Qualifiers: Nicotine product type: cigarettes Substance use status: uncomplicated Qualified Code(s): F17.210 - Nicotine dependence, cigarettes, uncomplicated - AMA Did Patient Leave Against Medical Advice: No
== END 2019-03-05 09:32 | disposition home or self-care (01) | DRG 774 ==
LOC: YASAS 16:13 → Y3N 21:59
PROVIDERS: ADMIT Surgery; ATTEND Surgery
PROC: HZ2ZZZZ Detoxification Services for Substance Abuse Treatment (ICD-10-PCS; principal; 2019-03-02)
PROC: HZ2ZZZZ Detoxification Services for Substance Abuse Treatment (ICD-10-PCS; 2019-03-02)
DX: F10.230 Alcohol dependence with withdrawal, uncomplicated (principal); F14.20 Cocaine dependence, uncomplicated; F12.10 Cannabis abuse, uncomplicated; F17.210 Nicotine dependence, cigarettes, uncomplicated; F20.9 Schizophrenia, unspecified; F32.9 Major depressive disorder, single episode, unspecified; A54.9 Gonococcal infection, unspecified; I10 Essential (primary) hypertension
CPT/HCPCS: 36415; 80053; 85027; 86593

== ENCOUNTER 2019-04-21 21:59 | Inpatient (IN) | payer OTHER ==
[2019-04-21 22:38] VITALS: BMI 26.2
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
[2019-04-21] MEDS ORDERED: MAGNESIUM HYDROX 2400MG/30ML ORAL SUSPENSION 30 ML CUP PO PRN (23:52)
[2019-04-21] MEDS ORDERED: MAG HYDROX/AL HYDROX/SIMETH 30 ML UNIT-DOSE CUP PO PRN (23:52)
[2019-04-21] MEDS ORDERED: MENTHOL/PHENOL 1 EACH UD MM PRN (23:52)
[2019-04-21] MEDS ORDERED: MELATONIN 5 MG TABLETS PO PRN (23:52)
[2019-04-21] MEDS ORDERED: IBUPROFEN 400 MG TABLET (FP) PO PRN (23:52)
[2019-04-21] MEDS ORDERED: MAGNESIUM CITRATE 300 ML BOTTLE PO PRN (23:52)
[2019-04-21] MEDS ORDERED: BISMUTH SUBSALICYLATE 524 MG/30 ML UD PO PRN (23:52)
[2019-04-21] MEDS ORDERED: METHOCARBAMOL 500 MG TABLET PO PRN (23:52)
[2019-04-21] MEDS ORDERED: ACETAMINOPHEN 325 MG TABLET (FP) PO PRN ×2 (23:52)
[2019-04-21] MEDS ORDERED: NICOTINE POLACRILEX 2 MG GUM BUC PRN (23:52)
[2019-04-21] MEDS ORDERED: cloNIDine HCL 0.1 MG TABLET PO ONE (23:55)
[2019-04-22] MEDS: chlordiazePOXIDE HCL 25 MG CAPSULE PO PRN (00:43)
[2019-04-22] MEDS: chlordiazePOXIDE HCL 25 MG CAPSULE PO SCH ×4 (06:34→22:13)
[2019-04-22] MEDS: amLODIPine BESYLATE 10 MG TABLET (FP) PO SCH (10:31)
[2019-04-22] MEDS: PRENATAL VITAMINS W/ FOLIC ACID TABLET (FP) PO SCH (10:32)
[2019-04-22] MEDS: NICOTINE 21 MG/24 HOURS TOPICAL PATCH TD SCH (10:33)
--- NOTE | 2019-04-22 10:38 | PN ---
S CIWA - CIWA Score Nausea/Vomitin-No Nausea/No Vomiting Muscle Tremors: 3 Anxiety: 2 Agitation: 2 Paroxysmal Sweats: 3 Orientation: 0-Oriented Tacttile Disturbances: 0-None Auditory Disturbances: 0-None Visual Disturbances: 0-None Headache: 0-None Present CIWA-Ar Total Score: 10 [facility] Progress Note (SOAP) Subjective: sweats shakes interrupted sleep body aches irritable Objective: 04/22/19 10:36 Vital Signs Temperature 97.2 F L 04/22/19 09:22 Pulse Rate 71 04/22/19 09:22 Respiratory Rate 18 04/22/19 09:22 Blood Pressure 132/87 04/22/19 09:22 O2 Sat by Pulse Oximetry (%) labs pending aaox3 ambulating no acute distress Assessment: 04/22/19 10:37 withdrawals sx Plan: continue detox increase fluids pending labs
[2019-04-22 12:17] LABS: HEMATOCRIT 42.7 % (35.4-49); HEMOGLOBIN 14.2 GM/dL (11.7-16.9); MCH 31.4 pg (25.7-33.7); MCHC 33.2 g/dl (32.0-35.9); MEAN CELL VOLUME 94.5 fl (80-96); MEAN PLT VOLUME 8.6 fl (7.5-11.1); PLATELET COUNT 202 K/MM3 (134-434); RBC 4.51 M/mm3 (4.00-5.60); RDW 14.6 % (11.9-15.9); WHITE BLOOD COUNT 3.9 K/mm3 (4.0-10.0)
[2019-04-22 12:26] LABS: ALBUMIN 3.3 g/dl (3.4-5.0); BILIRUBIN,TOTAL 0.5 mg/dL (0.2-1); BLOOD UREA NITROGEN 19.1 mg/dL (7-18); CALCIUM 9.1 mg/dL (8.5-10.1); CREATININE 1.4 mg/dL (0.55-1.3); POTASSIUM 3.9 mmol/L (3.5-5.1); TOT PROT 6.4 g/dl (6.4-8.2)
[2019-04-22] MEDS ORDERED: THIAMINE HCL 100 MG TABLET (FP) PO SCH (22:00)
[2019-04-23] MEDS: chlordiazePOXIDE HCL 25 MG CAPSULE PO PRN (06:23)
[2019-04-23] MEDS: chlordiazePOXIDE HCL 25 MG CAPSULE PO SCH ×3 (07:10→10:46)
[2019-04-23 09:29] VITALS: BP 156/99; PULSE 110; TEMP 98.3
[2019-04-23] MEDS: NICOTINE 21 MG/24 HOURS TOPICAL PATCH TD SCH (10:12)
[2019-04-23] MEDS: PRENATAL VITAMINS W/ FOLIC ACID TABLET (FP) PO SCH (10:12)
[2019-04-23] MEDS: amLODIPine BESYLATE 10 MG TABLET (FP) PO SCH (10:12)
--- NOTE | 2019-04-23 10:21 | PN ---
[facility] Progress Note Note: pt arrived in withdrawals pt insisting on leaving regardless of risk of relapse, seizures, DT's and or loss. pt was also offered his medication prior to leaving when it was given pt spit it out into the garbage. pt was then very upset, angry and became aggressive with cusing out staff. security was called and pt removed off the unit.
--- NOTE | 2019-04-23 11:18 | DS ---
[facility] Detox Discharge Summary Admission Date: 04/21/19 - History Present History: Alcohol Dependence, Cannabis Dependence, Cocaine Dependence - Physical Exam Results Vital Signs: Vital Signs Temperature 98.3 F 04/23/19 09:29 Pulse Rate 110 H 04/23/19 09:29 Respiratory Rate 18 04/23/19 09:29 Blood Pressure 156/99 04/23/19 09:29 O2 Sat by Pulse Oximetry (%) Pertinent Admission Physical Exam Findings: pt arrived in withdrawals pt insisted on leaving and signed out AMA. - Treatment Hospital Course: Rehab Referral Accepted - Medication Discharge Medications: Ambulatory Orders Amlodipine Besylate [Norvasc -] 10 mg PO DAILY 02/03/19 - Diagnosis (1) Alcohol dependence with withdrawal, uncomplicated Current Visit: Yes Status: Acute (2) Cannabis abuse, uncomplicated Current Visit: Yes Status: Chronic (3) Cocaine dependence Current Visit: Yes Status: Chronic Qualifiers: Substance use status: uncomplicated Qualified Code(s): F14.20 - Cocaine dependence, uncomplicated (4) Hypertension Current Visit: Yes Status: Chronic Qualifiers: Hypertension type: unspecified Qualified Code(s): I10 - Essential (primary ) hypertension (5) Nicotine dependence Current Visit: Yes Status: Chronic Qualifiers: Nicotine product type: cigarettes Substance use status: uncomplicated Qualified Code(s): F17.210 - Nicotine dependence, cigarettes, uncomplicated (6) Substance-induced sleep disorder Current Visit: No Status: Acute (7) Substance induced mood disorder Current Visit: No Status: Suspected - AMA Did Patient Leave Against Medical Advice: Yes
[2019-04-24] MEDS ORDERED: chlordiazePOXIDE HCL 10 MG CAPSULE PO PRN
[2019-04-24] MEDS ORDERED: chlordiazePOXIDE HCL 10 MG CAPSULE PO SCH (05:00)
[2019-04-25] MEDS ORDERED: chlordiazePOXIDE HCL 10 MG CAPSULE PO SCH (05:00)
[2019-04-26] MEDS ORDERED: chlordiazePOXIDE HCL 10 MG CAPSULE PO ONE (05:00)
== END 2019-04-23 10:51 | disposition left against medical advice (07) | DRG 770 ==
LOC: YASAS 21:59 → Y6N 23:38
PROVIDERS: ADMIT Surgery; ATTEND Surgery
PROC: HZ2ZZZZ Detoxification Services for Substance Abuse Treatment (ICD-10-PCS; principal; 2019-04-21)
DX: F10.230 Alcohol dependence with withdrawal, uncomplicated (principal); F14.20 Cocaine dependence, uncomplicated; F12.10 Cannabis abuse, uncomplicated; F17.210 Nicotine dependence, cigarettes, uncomplicated; F19.24 Other psychoactive substance dependence with psychoactive substance-induced mood disorder; F19.282 Other psychoactive substance dependence with psychoactive substance-induced sleep disorder; I10 Essential (primary) hypertension; R01.1 Cardiac murmur, unspecified; H55.00 Unspecified nystagmus; Z87.438 Personal history of other diseases of male genital organs; Z91.14 Patient's other noncompliance with medication regimen
CPT/HCPCS: 36415; 80053; 85027; 86480; 86593; J0735

== ENCOUNTER 2019-05-08 10:13 | Inpatient (IN) | payer OTHER ==
[2019-05-08 10:39] VITALS: BMI 24.5
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
[2019-05-08] MEDS ORDERED: MAGNESIUM HYDROX 2400MG/30ML ORAL SUSPENSION 30 ML CUP PO PRN (12:17)
[2019-05-08] MEDS ORDERED: hydrOXYzine PAMOATE 25 MG CAPSULE (FP) PO PRN (12:17)
[2019-05-08] MEDS ORDERED: ACETAMINOPHEN 325 MG TABLET (FP) PO PRN ×2 (12:17)
[2019-05-08] MEDS ORDERED: MAGNESIUM CITRATE 300 ML BOTTLE PO PRN (12:17)
[2019-05-08] MEDS ORDERED: MELATONIN 5 MG TABLETS PO PRN (12:17)
[2019-05-08] MEDS ORDERED: MENTHOL/PHENOL 1 EACH UD MM PRN (12:17)
[2019-05-08] MEDS ORDERED: METHOCARBAMOL 500 MG TABLET PO PRN (12:17)
[2019-05-08] MEDS ORDERED: chlordiazePOXIDE HCL 10 MG CAPSULE PO PRN (12:17)
[2019-05-08] MEDS ORDERED: IBUPROFEN 400 MG TABLET (FP) PO PRN (12:17)
[2019-05-08] MEDS ORDERED: BISMUTH SUBSALICYLATE 524 MG/30 ML UD PO PRN (12:17)
[2019-05-08] MEDS ORDERED: NICOTINE POLACRILEX 2 MG GUM BUC PRN (12:17)
[2019-05-08] MEDS ORDERED: MAG HYDROX/AL HYDROX/SIMETH 30 ML UNIT-DOSE CUP PO PRN (12:17)
[2019-05-08] MEDS: NICOTINE 14 MG/24 HOURS TOPICAL PATCH TD SCH ×2 (14:19→14:20)
[2019-05-08] MEDS: chlordiazePOXIDE HCL 25 MG CAPSULE PO SCH ×2 (14:19→22:19)
[2019-05-08] MEDS ORDERED: THIAMINE HCL 100 MG TABLET (FP) PO SCH (22:00)
[2019-05-09] MEDS: chlordiazePOXIDE HCL 25 MG CAPSULE PO SCH (05:07)
[2019-05-09 09:45] VITALS: BP 155/106; PULSE 62; TEMP 96.4
[2019-05-09] MEDS ORDERED: amLODIPine BESYLATE 10 MG TABLET (FP) PO SCH (10:00)
[2019-05-09] MEDS ORDERED: PRENATAL VITAMINS W/ FOLIC ACID TABLET (FP) PO SCH (10:00)
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
[2019-05-10] MEDS ORDERED: chlordiazePOXIDE 5 MG CAPSULE PO SCH (05:00)
[2019-05-11] MEDS ORDERED: chlordiazePOXIDE HCL 10 MG CAPSULE PO PRN
[2019-05-11] MEDS ORDERED: chlordiazePOXIDE HCL 10 MG CAPSULE PO SCH (05:00)
[2019-05-12] MEDS ORDERED: chlordiazePOXIDE HCL 10 MG CAPSULE PO ONE (05:00)
== END 2019-05-09 10:00 | disposition left against medical advice (07) | DRG 770 ==
LOC: YASAS 10:13 → Y6N 12:28
PROVIDERS: ADMIT Surgery; ATTEND Surgery
PROC: HZ2ZZZZ Detoxification Services for Substance Abuse Treatment (ICD-10-PCS; principal; 2019-05-08)
DX: F10.230 Alcohol dependence with withdrawal, uncomplicated (principal); F14.20 Cocaine dependence, uncomplicated; F12.10 Cannabis abuse, uncomplicated; F17.210 Nicotine dependence, cigarettes, uncomplicated; F19.282 Other psychoactive substance dependence with psychoactive substance-induced sleep disorder; F20.9 Schizophrenia, unspecified; F32.9 Major depressive disorder, single episode, unspecified; I10 Essential (primary) hypertension; Z91.14 Patient's other noncompliance with medication regimen; Z86.19 Personal history of other infectious and parasitic diseases

== ENCOUNTER 2019-06-23 08:11 | Inpatient (IN) | payer OTHER ==
[2019-06-23 08:36] VITALS: BMI 24.0
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
[2019-06-23] MEDS ORDERED: MAGNESIUM HYDROX 2400MG/30ML ORAL SUSPENSION 30 ML CUP PO PRN (09:03)
[2019-06-23] MEDS ORDERED: ACETAMINOPHEN 325 MG TABLET (FP) PO PRN (09:03)
[2019-06-23] MEDS ORDERED: hydrOXYzine PAMOATE 25 MG CAPSULE (FP) PO PRN (09:03)
[2019-06-23] MEDS ORDERED: MELATONIN 5 MG TABLETS PO PRN (09:03)
[2019-06-23] MEDS ORDERED: MENTHOL/PHENOL 1 EACH UD MM PRN (09:03)
[2019-06-23] MEDS ORDERED: MAGNESIUM CITRATE 300 ML BOTTLE PO PRN (09:03)
[2019-06-23] MEDS ORDERED: METHOCARBAMOL 500 MG TABLET PO PRN (09:03)
[2019-06-23] MEDS ORDERED: IBUPROFEN 400 MG TABLET (FP) PO PRN (09:03)
[2019-06-23] MEDS ORDERED: MAG HYDROX/AL HYDROX/SIMETH 30 ML UNIT-DOSE CUP PO PRN (09:03)
[2019-06-23] MEDS ORDERED: chlordiazePOXIDE HCL 25 MG CAPSULE PO PRN (09:03)
[2019-06-23] MEDS: chlordiazePOXIDE HCL 25 MG CAPSULE PO SCH ×3 (10:34→22:17)
[2019-06-23] MEDS: amLODIPine BESYLATE 10 MG TABLET (FP) PO SCH (10:34)
[2019-06-23] MEDS: PRENATAL VITAMINS W/ FOLIC ACID TABLET (FP) PO SCH (10:34)
[2019-06-23 12:42] LABS: HEMOGLOBIN 15.7 GM/dL (11.7-16.9); MCH 31.4 pg (25.7-33.7); MCHC 32.8 g/dl (32.0-35.9); MEAN CELL VOLUME 95.8 fl (80-96); MEAN PLT VOLUME 8.3 fl (7.5-11.1); PLATELET COUNT 266 K/MM3 (134-434); RBC 5.01 M/mm3 (4.00-5.60); RDW 14.4 % (11.9-15.9); WHITE BLOOD COUNT 6.2 K/mm3 (4.0-10.0)
[2019-06-23 12:57] LABS: ALBUMIN 3.4 g/dl (3.4-5.0); BILIRUBIN,TOTAL 0.5 mg/dL (0.2-1); BLOOD UREA NITROGEN 22.5 mg/dL (7-18); CALCIUM 9.3 mg/dL (8.5-10.1); CREATININE 1.6 mg/dL (0.55-1.3); POTASSIUM 4.3 mmol/L (3.5-5.1); TOT PROT 7.2 g/dl (6.4-8.2)
[2019-06-23] MEDS: THIAMINE HCL 100 MG TABLET (FP) PO SCH (22:17)
[2019-06-24] MEDS: chlordiazePOXIDE HCL 25 MG CAPSULE PO SCH ×4 (05:19→22:13)
[2019-06-24] MEDS: BISMUTH SUBSALICYLATE 262 MG/15 ML BTL PO PRN (08:33)
[2019-06-24] MEDS: PRENATAL VITAMINS W/ FOLIC ACID TABLET (FP) PO SCH (10:15)
[2019-06-24] MEDS: amLODIPine BESYLATE 10 MG TABLET (FP) PO SCH (10:15)
[2019-06-24] MEDS ORDERED: chlordiazePOXIDE HCL 25 MG CAPSULE PO PRN (10:22)
--- NOTE | 2019-06-24 11:49 | PN ---
S CIWA - CIWA Score Nausea/Vomitin-Mild Nausea/No Vomiting Muscle Tremors: 1-None Visible, but [place] Anxiety: 2 Agitation: 2 Paroxysmal Sweats: No Perspiration Orientation: 0-Oriented Tacttile Disturbances: 1-Very Mild Itch/Numbness Auditory Disturbances: 0-None Visual Disturbances: 0-None Headache: 1-Very Mild CIWA-Ar Total Score: 8 S Progress Note (SOAP) Subjective: alert,irritable,anxious,interrupted sleep,agitated,non compliance with medical care,homeless,did not follow up with any medical provider, weight loss,was told about kidkey problem in the past,dry skin Objective: 06/24/19 11:46 Vital Signs Temperature 96.7 F L 06/24/19 09:09 Pulse Rate 82 06/24/19 09:09 Respiratory Rate 18 06/24/19 09:09 Blood Pressure 138/86 06/24/19 09:09 O2 Sat by Pulse Oximetry (%) Laboratory Last Values WBC 6.2 K/mm3 (4.0-10.0) 06/23/19 09:00 RBC 5.01 M/mm3 (4.00-5.60) 06/23/19 09:00 Hgb 15.7 GM/dL (11.7-16.9) 06/23/19 09:00 Hct 48.0 % (35.4-49) 06/23/19 09:00 MCV 95.8 fl (80-96) 06/23/19 09:00 MCH 31.4 pg (25.7-33.7) 06/23/19 09:00 MCHC 32.8 g/dl (32.0-35.9) 06/23/19 09:00 RDW 14.4 % (11.9-15.9) 06/23/19 09:00 Plt Count 266 K/MM3 (134-434) D 06/23/19 09:00 MPV 8.3 fl (7.5-11.1) 06/23/19 09:00 Sodium 140 mmol/L (136-145) 06/23/19 09:00 Potassium 4.3 mmol/L (3.5-5.1) 06/23/19 09:00 Chloride 106 mmol/L (98-107) 06/23/19 09:00 Carbon Dioxide 31 mmol/L (21-32) 06/23/19 09:00 Anion Gap 3 MMOL/L (8-16) L 06/23/19 09:00 BUN 22.5 mg/dL (7-18) H 06/23/19 09:00 Creatinine 1.6 mg/dL (0.55-1.3) H 06/23/19 09:00 Est GFR (CKD-EPI)AfAm 57.37 06/23/19 09:00 Est GFR (CKD-EPI)NonAf 49.50 06/23/19 09:00 Random Glucose 70 mg/dL (74-106) L 06/23/19 09:00 Calcium 9.3 mg/dL (8.5-10.1) 06/23/19 09:00 Total Bilirubin 0.5 mg/dL (0.2-1) 06/23/19 09:00 AST 18 U/L (15-37) 06/23/19 09:00 ALT 27 U/L (13-61) 06/23/19 09:00 Alkaline Phosphatase 100 U/L (45-117) 06/23/19 09:00 Total Protein 7.2 g/dl (6.4-8.2) 06/23/19 09:00 Albumin 3.4 g/dl (3.4-5.0) 06/23/19 09:00 RPR Titer Nonreactive (NONREACTIVE) 06/23/19 09:00 Assessment: 06/24/19 11:47 withdrawal symptom Plan: continue detox librium regimen,encourage oral fluid,ensure plus 120 ml spo bid, dry skin lachhydrin ordered, advise follow up with clinic or medical provider
[2019-06-24] MEDS: AMMONIUM LACTATE 12% LOTION 225 GM BOTTLE TP SCH ×2 (15:18→22:13)
[2019-06-24] MEDS: ACETAMINOPHEN 325 MG TABLET (FP) PO PRN (16:50)
[2019-06-24] MEDS: THIAMINE HCL 100 MG TABLET (FP) PO SCH (22:13)
[2019-06-25] MEDS: chlordiazePOXIDE HCL 25 MG CAPSULE PO SCH ×2 (06:16→10:19)
[2019-06-25] MEDS: BISMUTH SUBSALICYLATE 262 MG/15 ML BTL PO PRN (06:17)
[2019-06-25] MEDS: ACETAMINOPHEN 325 MG TABLET (FP) PO PRN (06:17)
[2019-06-25] MEDS ORDERED: SELENIUM SULFIDE 2.5% LOTION 4 OZ. TP SCH (10:00)
[2019-06-25] MEDS: PRENATAL VITAMINS W/ FOLIC ACID TABLET (FP) PO SCH (10:17)
[2019-06-25] MEDS: amLODIPine BESYLATE 10 MG TABLET (FP) PO SCH (10:17)
[2019-06-25] MEDS: AMMONIUM LACTATE 12% LOTION 225 GM BOTTLE TP SCH (10:19)
[2019-06-25 12:29] LABS: ALBUMIN 2.8 g/dl (3.4-5.0); BILIRUBIN,TOTAL 0.2 mg/dL (0.2-1); CALCIUM 8.6 mg/dL (8.5-10.1); CREATININE 1.2 mg/dL (0.55-1.3); TOT PROT 5.6 g/dl (6.4-8.2)
[2019-06-25 13:22] VITALS: BP 153/94; PULSE 96; TEMP 98.1
--- NOTE | 2019-06-25 14:08 | PN ---
S CIWA - CIWA Score Nausea/Vomitin-Mild Nausea/No Vomiting Muscle Tremors: 1-None Visible, but [place] Anxiety: 1-Mildly Anxious Agitation: 1-Slight > Activity Paroxysmal Sweats: No Perspiration Orientation: 0-Oriented Tacttile Disturbances: 1-Very Mild Itch/Numbness Auditory Disturbances: 0-None Visual Disturbances: 0-None Headache: 1-Very Mild CIWA-Ar Total Score: 6 [facility] Progress Note (SOAP) Subjective: alert,irritable,anxious,interrupted sleep,itching scalp Objective: 06/25/19 14:06 Vital Signs Temperature 98.1 F 06/25/19 13:21 Pulse Rate 96 H 06/25/19 13:21 Respiratory Rate 20 06/25/19 13:21 Blood Pressure 153/94 06/25/19 13:21 O2 Sat by Pulse Oximetry (%) Laboratory Results - last 24 hr 06/25/19 09:20 Sodium 141 Potassium 4.0 Chloride 109 H Carbon Dioxide 29 Anion Gap 3 L BUN 15.0 Creatinine 1.2 Est GFR (CKD-EPI)AfAm 81.23 Est GFR (CKD-EPI)NonAf 70.09 Random Glucose 116 H Calcium 8.6 Total Bilirubin 0.2 AST 9 L ALT 20 Alkaline Phosphatase 76 Total Protein 5.6 L Albumin 2.8 L Assessment: 06/25/19 14:07 withdrawal symptom Plan: continue detox librium regimen
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
[2019-06-26] MEDS ORDERED: chlordiazePOXIDE HCL 10 MG CAPSULE PO PRN ×2
[2019-06-26] MEDS ORDERED: chlordiazePOXIDE HCL 10 MG CAPSULE PO SCH ×2 (05:00)
[2019-06-27] MEDS ORDERED: chlordiazePOXIDE HCL 10 MG CAPSULE PO SCH ×2 (05:00)
[2019-06-28] MEDS ORDERED: chlordiazePOXIDE HCL 10 MG CAPSULE PO ONE ×2 (05:00)
== END 2019-06-25 15:08 | disposition left against medical advice (07) | DRG 470 ==
LOC: YASAS 08:11 → Y3N 09:32
PROVIDERS: ADMIT Allergy & Immunology; ATTEND Allergy & Immunology
PROC: HZ2ZZZZ Detoxification Services for Substance Abuse Treatment (ICD-10-PCS; principal; 2019-06-23)
DX: N18.9 Chronic kidney disease, unspecified (principal); F10.230 Alcohol dependence with withdrawal, uncomplicated; F14.20 Cocaine dependence, uncomplicated; F12.20 Cannabis dependence, uncomplicated; F17.210 Nicotine dependence, cigarettes, uncomplicated; F19.282 Other psychoactive substance dependence with psychoactive substance-induced sleep disorder; F20.9 Schizophrenia, unspecified; F32.9 Major depressive disorder, single episode, unspecified; F60.9 Personality disorder, unspecified; I10 Essential (primary) hypertension; R41.82 Altered mental status, unspecified; Z86.19 Personal history of other infectious and parasitic diseases; Z87.828 Personal history of other (healed) physical injury and trauma; Z91.14 Patient's other noncompliance with medication regimen
CPT/HCPCS: 36415; 80053; 85027; 86593

== ENCOUNTER 2019-07-04 08:08 | Inpatient (IN) | payer OTHER ==
[2019-07-04 12:52] VITALS: BMI 25.7
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
[2019-07-04] MEDS ORDERED: MAGNESIUM HYDROX 2400MG/30ML ORAL SUSPENSION 30 ML CUP PO PRN (13:15)
[2019-07-04] MEDS ORDERED: MELATONIN 5 MG TABLETS PO PRN (13:15)
[2019-07-04] MEDS ORDERED: IBUPROFEN 400 MG TABLET (FP) PO PRN (13:15)
[2019-07-04] MEDS ORDERED: chlordiazePOXIDE HCL 25 MG CAPSULE PO ONE (13:15)
[2019-07-04] MEDS ORDERED: MENTHOL/PHENOL 1 EACH UD MM PRN (13:15)
[2019-07-04] MEDS ORDERED: guaiFENesin 200 MG/10 ML 10 ML UNIT-DOSE CUPS PO PRN (13:15)
[2019-07-04] MEDS ORDERED: P-EPHED 60MG/TRIPROLIDI 2.5MG TABLET PO PRN (13:15)
[2019-07-04] MEDS ORDERED: MAG HYDROX/AL HYDROX/SIMETH 30 ML UNIT-DOSE CUP PO PRN (13:15)
[2019-07-04] MEDS ORDERED: NICOTINE POLACRILEX 2 MG GUM BUC PRN (13:15)
[2019-07-04] MEDS ORDERED: chlordiazePOXIDE HCL 10 MG CAPSULE PO PRN (13:15)
[2019-07-04] MEDS ORDERED: MAGNESIUM CITRATE 300 ML BOTTLE PO PRN (13:15)
[2019-07-04] MEDS ORDERED: ACETAMINOPHEN 325 MG TABLET (FP) PO PRN ×2 (13:15)
[2019-07-04] MEDS ORDERED: BISMUTH SUBSALICYLATE 524 MG/30 ML UD PO PRN (13:15)
[2019-07-04] MEDS ORDERED: METHOCARBAMOL 500 MG TABLET PO PRN (13:15)
[2019-07-04] MEDS ORDERED: hydrOXYzine PAMOATE 50 MG CAPSULE (FP) PO PRN (13:15)
[2019-07-04] MEDS: amLODIPine BESYLATE 10 MG TABLET (FP) PO SCH (14:10)
[2019-07-04] MEDS: SELENIUM SULFIDE 2.25% 180 ML SHAMPOO TP SCH (14:10)
[2019-07-04] MEDS: COLLOIDAL OATMEAL 1 BAR EACH TP PRN (14:12)
[2019-07-04] MEDS: THIAMINE HCL 100 MG TABLET (FP) PO SCH (22:55)
[2019-07-04] MEDS: chlordiazePOXIDE HCL 25 MG CAPSULE PO SCH (22:55)
[2019-07-05] MEDS: chlordiazePOXIDE HCL 25 MG CAPSULE PO SCH ×3 (05:39→21:56)
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
[2019-07-05] MEDS ORDERED: IBUPROFEN 600 MG TABLET (FP) PO PRN (10:08)
[2019-07-05] MEDS: PRENATAL VITAMINS W/ FOLIC ACID TABLET (FP) PO SCH (10:12)
[2019-07-05] MEDS: amLODIPine BESYLATE 10 MG TABLET (FP) PO SCH (10:12)
[2019-07-05] MEDS: COLLOIDAL OATMEAL 1 BAR EACH TP PRN (10:13)
[2019-07-05] MEDS ORDERED: MELATONIN 5 MG TABLETS PO PRN (10:23)
--- NOTE | 2019-07-05 11:10 | PN ---
[facility] CIWA - CIWA Score Nausea/Vomitin-Mild Nausea/No Vomiting Muscle Tremors: 1-None Visible, but [place] Anxiety: 2 Agitation: 2 Paroxysmal Sweats: No Perspiration Orientation: 0-Oriented Tacttile Disturbances: 1-Very Mild Itch/Numbness Auditory Disturbances: 0-None Visual Disturbances: 0-None Headache: 2-Mild CIWA-Ar Total Score: 9 [facility] Progress Note (SOAP) Subjective: alert,irritable,anxious,interrupted sleep,tremor,callus both feet Objective: 07/05/19 11:08 withdrawal symptom Assessment: 07/05/19 11:08 withdrawal symptom Plan: continue detox librium regimen,motrin increase to 600 mgs po q6 hrs prn for pain ,a and d ointment, follow up with auto specialty services manager after discharge for callus of both feet
[2019-07-05] MEDS: VITAMINS A AND D TOPICAL OINTMENT 60 GM TUBE TP SCH ×3 (12:21→23:10)
[2019-07-05] MEDS: SELENIUM SULFIDE 2.25% 180 ML SHAMPOO TP SCH (12:23)
[2019-07-05] MEDS: SELENIUM SULFIDE 2.5% LOTION 4 OZ. TP SCH (15:48)
[2019-07-05] MEDS: THIAMINE HCL 100 MG TABLET (FP) PO SCH (22:07)
[2019-07-06] MEDS ORDERED: chlordiazePOXIDE 5 MG CAPSULE PO SCH (05:00)
[2019-07-06] MEDS: VITAMINS A AND D TOPICAL OINTMENT 60 GM TUBE TP SCH ×2 (05:55→11:43)
--- NOTE | 2019-07-06 09:32 | PN ---
S CIWA - CIWA Score Nausea/Vomitin-No Nausea/No Vomiting Muscle Tremors: 2 Anxiety: 2 Agitation: 2 Paroxysmal Sweats: No Perspiration Orientation: 0-Oriented Tacttile Disturbances: 1-Very Mild Itch/Numbness Auditory Disturbances: 0-None Visual Disturbances: 0-None Headache: 2-Mild CIWA-Ar Total Score: 9 [facility] Progress Note (SOAP) Subjective: alert,irritable,anxious,interrupted sleep,pain in the body Objective: 07/06/19 09:34 Vital Signs Temperature 97.9 F 07/06/19 06:43 Pulse Rate 67 07/06/19 06:43 Respiratory Rate 18 07/06/19 06:43 Blood Pressure 145/95 07/06/19 06:43 O2 Sat by Pulse Oximetry (%) Assessment: 07/06/19 09:35 withdrawal symptom Plan: continue detox librium regimen
--- NOTE | 2019-07-06 09:44 | DS ---
[facility] Detox Discharge Summary Admission Date: 07/04/19 Discharge Date: 07/06/19 - History Present History: Alcohol Dependence, Cannabis Dependence, Cocaine Dependence Additional Comments: patient did not want to continue treatment,declined to give reason,signed release AMA,advise to call 911 if not feeling well,risked of relapsing is high, patient understood Pertinent Past History: hypertension nicotine dependence depression - Physical Exam Results Vital Signs: Vital Signs Temperature 97.9 F 07/06/19 06:43 Pulse Rate 67 07/06/19 06:43 Respiratory Rate 18 07/06/19 06:43 Blood Pressure 145/95 07/06/19 06:43 O2 Sat by Pulse Oximetry (%) Pertinent Admission Physical Exam Findings: withdrawal signs and symptom - Medication Discharge Medications: Ambulatory Orders Amlodipine Besylate [Norvasc -] 10 mg PO DAILY 02/03/19 - Diagnosis (1) Alcohol dependence with withdrawal, uncomplicated Current Visit: Yes Status: Acute (2) Cannabis abuse, uncomplicated Current Visit: Yes Status: Acute (3) Cocaine dependence Current Visit: Yes Status: Acute Qualifiers: Substance use status: uncomplicated Qualified Code(s): F14.20 - Cocaine dependence, uncomplicated (4) Hypertension Current Visit: Yes Status: Chronic Qualifiers: Hypertension type: essential hypertension Qualified Code(s): I10 - Essential (primary) hypertension (5) Nicotine dependence Current Visit: Yes Status: Chronic Qualifiers: Nicotine product type: cigarettes Substance use status: uncomplicated Qualified Code(s): F17.210 - Nicotine dependence, cigarettes, uncomplicated (6) Schizoaffective disorder Current Visit: Yes Status: Ruled-out - AMA Did Patient Leave Against Medical Advice: Yes
[2019-07-06 10:17] VITALS: BP 146/85; PULSE 80; TEMP 97.8
[2019-07-06] MEDS: PRENATAL VITAMINS W/ FOLIC ACID TABLET (FP) PO SCH (10:21)
[2019-07-06] MEDS: amLODIPine BESYLATE 10 MG TABLET (FP) PO SCH (10:21)
[2019-07-06] MEDS: SELENIUM SULFIDE 2.5% LOTION 4 OZ. TP SCH (10:22)
[2019-07-07] MEDS ORDERED: chlordiazePOXIDE HCL 10 MG CAPSULE PO PRN
[2019-07-07] MEDS ORDERED: chlordiazePOXIDE HCL 10 MG CAPSULE PO SCH (05:00)
[2019-07-08] MEDS ORDERED: chlordiazePOXIDE HCL 10 MG CAPSULE PO ONE (05:00)
== END 2019-07-06 12:51 | disposition left against medical advice (07) | DRG 770 ==
LOC: YASAS 08:08 → Y6N 12:42
PROVIDERS: ADMIT Allergy & Immunology; ATTEND Allergy & Immunology
PROC: HZ2ZZZZ Detoxification Services for Substance Abuse Treatment (ICD-10-PCS; principal; 2019-07-04)
DX: F10.230 Alcohol dependence with withdrawal, uncomplicated (principal); F14.20 Cocaine dependence, uncomplicated; F12.10 Cannabis abuse, uncomplicated; F17.210 Nicotine dependence, cigarettes, uncomplicated; F39 Unspecified mood [affective] disorder; F19.24 Other psychoactive substance dependence with psychoactive substance-induced mood disorder; F19.282 Other psychoactive substance dependence with psychoactive substance-induced sleep disorder; I10 Essential (primary) hypertension; Z87.438 Personal history of other diseases of male genital organs; Z91.14 Patient's other noncompliance with medication regimen

== ENCOUNTER 2019-08-07 18:56 | Inpatient (IN) | payer OTHER ==
[2019-08-07 21:23] VITALS: BMI 25.2
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
[2019-08-07] MEDS ORDERED: MENTHOL/PHENOL 1 EACH UD MM PRN (22:52)
[2019-08-07] MEDS ORDERED: NICOTINE POLACRILEX 2 MG GUM BUC PRN (22:52)
[2019-08-07] MEDS ORDERED: IBUPROFEN 400 MG TABLET (FP) PO PRN (22:52)
[2019-08-07] MEDS ORDERED: MAGNESIUM HYDROX 2400MG/30ML ORAL SUSPENSION 30 ML CUP PO PRN (22:52)
[2019-08-07] MEDS ORDERED: BISMUTH SUBSALICYLATE 524 MG/30 ML UD PO PRN (22:52)
[2019-08-07] MEDS ORDERED: hydrOXYzine PAMOATE 25 MG CAPSULE (FP) PO PRN (22:52)
[2019-08-07] MEDS ORDERED: MAG HYDROX/AL HYDROX/SIMETH 30 ML UNIT-DOSE CUP PO PRN (22:52)
[2019-08-07] MEDS ORDERED: chlordiazePOXIDE HCL 25 MG CAPSULE PO PRN (22:52)
[2019-08-07] MEDS ORDERED: MELATONIN 5 MG TABLETS PO PRN (22:52)
[2019-08-07] MEDS ORDERED: MAGNESIUM CITRATE 300 ML BOTTLE PO PRN (22:52)
[2019-08-07] MEDS ORDERED: METHOCARBAMOL 500 MG TABLET PO PRN (22:52)
[2019-08-07] MEDS ORDERED: ACETAMINOPHEN 325 MG TABLET (FP) PO PRN (22:52)
[2019-08-08] MEDS: chlordiazePOXIDE HCL 25 MG CAPSULE PO SCH ×5 (00:16→22:33)
[2019-08-08] MEDS: ACETAMINOPHEN 325 MG TABLET (FP) PO PRN (05:26)
--- NOTE | 2019-08-08 09:17 | PN ---
S CIWA - CIWA Score Nausea/Vomitin-Mild Nausea/No Vomiting Muscle Tremors: 3 Anxiety: 2 Agitation: 3 Paroxysmal Sweats: 2 Orientation: 0-Oriented Tacttile Disturbances: 1-Very Mild Itch/Numbness Auditory Disturbances: 0-None Visual Disturbances: 0-None Headache: 2-Mild CIWA-Ar Total Score: 14 BHS Progress Note (SOAP) Subjective: 49 years old male admitted on 08/07/19 for alcohol withdrawal sx management treating with librium detox regimen ate breakfast poor appetite feeling tired skin good turgur, oral membrane moist pink requests to be seen by a industrial recruiter ensure supplement with industrial recruiter referral Objective: 08/08/19 09:16 Vital Signs Temperature 97.3 F L 08/08/19 09:08 Pulse Rate 81 08/08/19 09:08 Respiratory Rate 18 08/08/19 09:08 Blood Pressure 141/88 08/08/19 09:08 O2 Sat by Pulse Oximetry (%) 08/08/19 09:16 lab pending Assessment: 08/08/19 09:16 alcohol withdrawal Plan: librium regimen
[2019-08-08] MEDS: PRENATAL VITAMINS W/ FOLIC ACID TABLET (FP) PO SCH (10:17)
[2019-08-08] MEDS: amLODIPine BESYLATE 10 MG TABLET (FP) PO SCH (10:17)
[2019-08-08] MEDS: NICOTINE 14 MG/24 HOURS TOPICAL PATCH TD SCH (10:18)
[2019-08-08 10:42] LABS: HEMATOCRIT 43.3 % (35.4-49); HEMOGLOBIN 14.4 GM/dL (11.7-16.9); MCHC 33.2 g/dl (32.0-35.9); MEAN CELL VOLUME 93.4 fl (80-96); MEAN PLT VOLUME 8.5 fl (7.5-11.1); PLATELET COUNT 219 K/MM3 (134-434); RBC 4.63 M/mm3 (4.00-5.60); RDW 15.5 % (11.9-15.9); WHITE BLOOD COUNT 4.2 K/mm3 (4.0-10.0)
[2019-08-08 10:46] LABS: ALBUMIN 3.6 g/dl (3.4-5.0); BILIRUBIN,TOTAL 0.4 mg/dL (0.2-1); BLOOD UREA NITROGEN 28.8 mg/dL (7-18); CALCIUM 9.2 mg/dL (8.5-10.1); CREATININE 1.5 mg/dL (0.55-1.3); POTASSIUM 4.1 mmol/L (3.5-5.1); TOT PROT 7.2 g/dl (6.4-8.2)
[2019-08-08] MEDS: BACITRACIN 15 GM TUBE TOPICAL OINTMENT TP SCH ×2 (12:14→22:33)
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
--- NOTE | 2019-08-08 18:43 | EKG ---
Test Reason : Blood Pressure : / mmHG Vent. Rate : 086 BPM Atrial Rate : 086 BPM P-R Int : 124 ms QRS Dur : 072 ms QT Int : 368 ms P-R-T Axes : 067 034 018 degrees QTc Int : 440 ms NORMAL SINUS RHYTHM NORMAL ECG WHEN COMPARED WITH ECG OF 23-JUN-2018 17:59, NO SIGNIFICANT CHANGE WAS FOUND Confirmed by ADIEL OTT MD ([id number]) on 08/08/2019 6:43:23 PM Referred By: Andrew West Confirmed By:ADIEL OTT MD
[2019-08-08] MEDS: THIAMINE HCL 100 MG TABLET (FP) PO SCH (22:33)
[2019-08-08] MEDS: risperiDONE 1 MG TABLET (FP) PO SCH (22:33)
[2019-08-08] MEDS: DIVALPROEX SODIUM 500 MG TABLET E.C. PO SCH (22:33)
[2019-08-09] MEDS: chlordiazePOXIDE HCL 25 MG CAPSULE PO SCH ×4 (06:40→22:33)
[2019-08-09] MEDS ORDERED: COLLOIDAL OATMEAL 1 BAR EACH TP PRN (10:10)
--- NOTE | 2019-08-09 10:14 | PN ---
[facility] CIWA - CIWA Score Nausea/Vomitin-Mild Nausea/No Vomiting Muscle Tremors: 3 Anxiety: 2 Agitation: 1-Slight > Activity Paroxysmal Sweats: 2 Orientation: 1-Uncertain about Date (date of week) Tacttile Disturbances: 1-Very Mild Itch/Numbness Auditory Disturbances: 0-None Visual Disturbances: 0-None Headache: 1-Very Mild CIWA-Ar Total Score: 12 BHS Progress Note (SOAP) Subjective: 49 years old male admitted on 08/07/19 for alcohol withdrawal sx management treating with librium detox regimen feeling ok today ate breakfast slept through the night more energy to shower today Objective: 08/09/19 10:14 Vital Signs Temperature 97.3 F L 08/09/19 09:12 Pulse Rate 72 08/09/19 09:12 Respiratory Rate 20 08/09/19 09:12 Blood Pressure 128/88 08/09/19 09:12 O2 Sat by Pulse Oximetry (%) Laboratory Last Values WBC 4.2 K/mm3 (4.0-10.0) 08/08/19 07:35 RBC 4.63 M/mm3 (4.00-5.60) 08/08/19 07:35 Hgb 14.4 GM/dL (11.7-16.9) 08/08/19 07:35 Hct 43.3 % (35.4-49) 08/08/19 07:35 MCV 93.4 fl (80-96) 08/08/19 07:35 MCH 31.0 pg (25.7-33.7) 08/08/19 07:35 MCHC 33.2 g/dl (32.0-35.9) 08/08/19 07:35 RDW 15.5 % (11.9-15.9) 08/08/19 07:35 Plt Count 219 K/MM3 (134-434) 08/08/19 07:35 MPV 8.5 fl (7.5-11.1) 08/08/19 07:35 Sodium 139 mmol/L (136-145) 08/08/19 07:35 Potassium 4.1 mmol/L (3.5-5.1) 08/08/19 07:35 Chloride 103 mmol/L (98-107) 08/08/19 07:35 Carbon Dioxide 28 mmol/L (21-32) 08/08/19 07:35 Anion Gap 9 MMOL/L (8-16) 08/08/19 07:35 BUN 28.8 mg/dL (7-18) H 08/08/19 07:35 Creatinine 1.5 mg/dL (0.55-1.3) H 08/08/19 07:35 Est GFR (CKD-EPI)AfAm 61.59 08/08/19 07:35 Est GFR (CKD-EPI)NonAf 53.14 08/08/19 07:35 Random Glucose 83 mg/dL (74-106) 08/08/19 07:35 Calcium 9.2 mg/dL (8.5-10.1) 08/08/19 07:35 Total Bilirubin 0.4 mg/dL (0.2-1) 08/08/19 07:35 AST 14 U/L (15-37) L 08/08/19 07:35 ALT 25 U/L (13-61) 08/08/19 07:35 Alkaline Phosphatase 85 U/L (45-117) 08/08/19 07:35 Total Protein 7.2 g/dl (6.4-8.2) 08/08/19 07:35 Albumin 3.6 g/dl (3.4-5.0) 08/08/19 07:35 RPR Titer Nonreactive (NONREACTIVE) 08/08/19 07:35 lab noted bun elevation encourage oral fluid repeat bun repeat bun 08/09/19 10:15 Assessment: 08/09/19 10:15 alcohol withdrawal Plan: librium regimen
[2019-08-09] MEDS: PRENATAL VITAMINS W/ FOLIC ACID TABLET (FP) PO SCH (10:31)
[2019-08-09] MEDS: amLODIPine BESYLATE 10 MG TABLET (FP) PO SCH (10:31)
[2019-08-09] MEDS: NICOTINE 14 MG/24 HOURS TOPICAL PATCH TD SCH (10:34)
[2019-08-09] MEDS: BACITRACIN 15 GM TUBE TOPICAL OINTMENT TP SCH ×3 (10:34→22:34)
[2019-08-09] MEDS: FLUOCINONIDE 0.05% CREAM (60 GM TUBE) TP SCH ×3 (13:14→22:33)
[2019-08-09] MEDS: ACETAMINOPHEN 325 MG TABLET (FP) PO PRN (20:47)
[2019-08-09] MEDS: THIAMINE HCL 100 MG TABLET (FP) PO SCH (22:33)
[2019-08-09] MEDS: DIVALPROEX SODIUM 500 MG TABLET E.C. PO SCH (22:33)
[2019-08-09] MEDS: risperiDONE 1 MG TABLET (FP) PO SCH (22:33)
[2019-08-10] MEDS ORDERED: chlordiazePOXIDE HCL 10 MG CAPSULE PO PRN
[2019-08-10] MEDS: chlordiazePOXIDE HCL 10 MG CAPSULE PO SCH ×4 (06:19→22:17)
[2019-08-10] MEDS: PRENATAL VITAMINS W/ FOLIC ACID TABLET (FP) PO SCH (10:08)
[2019-08-10] MEDS: FLUOCINONIDE 0.05% CREAM (60 GM TUBE) TP SCH ×4 (10:08→22:18)
[2019-08-10] MEDS: BACITRACIN 15 GM TUBE TOPICAL OINTMENT TP SCH ×2 (10:08→22:22)
[2019-08-10] MEDS: amLODIPine BESYLATE 10 MG TABLET (FP) PO SCH (10:08)
[2019-08-10] MEDS: NICOTINE 14 MG/24 HOURS TOPICAL PATCH TD SCH (10:09)
--- NOTE | 2019-08-10 10:34 | PN ---
S CIWA - CIWA Score Nausea/Vomitin-No Nausea/No Vomiting Muscle Tremors: None Anxiety: 3 Agitation: 0-Normal Activity Paroxysmal Sweats: 3 Orientation: 0-Oriented Tacttile Disturbances: 0-None Auditory Disturbances: 0-None Visual Disturbances: 0-None Headache: 2-Mild CIWA-Ar Total Score: 8 BHS Progress Note (SOAP) Subjective: c/o headache, anxiety, and sweats. Objective: 08/10/19 10:33 Vital Signs 08/10/19 08/10/19 08/10/19 03:30 06:11 09:05 Temperature 96.4 F L 96.7 F L Pulse Rate 74 72 Respiratory 18 18 18 Rate Blood Pressure 133/82 138/88 Laboratory Last Values WBC 4.2 K/mm3 (4.0-10.0) 08/08/19 07:35 RBC 4.63 M/mm3 (4.00-5.60) 08/08/19 07:35 Hgb 14.4 GM/dL (11.7-16.9) 08/08/19 07:35 Hct 43.3 % (35.4-49) 08/08/19 07:35 MCV 93.4 fl (80-96) 08/08/19 07:35 MCH 31.0 pg (25.7-33.7) 08/08/19 07:35 MCHC 33.2 g/dl (32.0-35.9) 08/08/19 07:35 RDW 15.5 % (11.9-15.9) 08/08/19 07:35 Plt Count 219 K/MM3 (134-434) 08/08/19 07:35 MPV 8.5 fl (7.5-11.1) 08/08/19 07:35 Sodium 139 mmol/L (136-145) 08/08/19 07:35 Potassium 4.1 mmol/L (3.5-5.1) 08/08/19 07:35 Chloride 103 mmol/L (98-107) 08/08/19 07:35 Carbon Dioxide 28 mmol/L (21-32) 08/08/19 07:35 Anion Gap 9 MMOL/L (8-16) 08/08/19 07:35 BUN 28.8 mg/dL (7-18) H 08/08/19 07:35 Creatinine 1.5 mg/dL (0.55-1.3) H 08/08/19 07:35 Est GFR (CKD-EPI)AfAm 61.59 08/08/19 07:35 Est GFR (CKD-EPI)NonAf 53.14 08/08/19 07:35 Random Glucose 83 mg/dL (74-106) 08/08/19 07:35 Calcium 9.2 mg/dL (8.5-10.1) 08/08/19 07:35 Total Bilirubin 0.4 mg/dL (0.2-1) 08/08/19 07:35 AST 14 U/L (15-37) L 08/08/19 07:35 ALT 25 U/L (13-61) 08/08/19 07:35 Alkaline Phosphatase 85 U/L (45-117) 08/08/19 07:35 Total Protein 7.2 g/dl (6.4-8.2) 08/08/19 07:35 Albumin 3.6 g/dl (3.4-5.0) 08/08/19 07:35 RPR Titer Nonreactive (NONREACTIVE) 08/08/19 07:35 Labs noted. Assessment: 08/10/19 10:33 AOX3, in no acute respiratory distress. Full ROM, ambulating in the unit. Withdrawal symptoms. Plan: continue detox.
[2019-08-10] MEDS: ACETAMINOPHEN 325 MG TABLET (FP) PO PRN (17:25)
[2019-08-10] MEDS: THIAMINE HCL 100 MG TABLET (FP) PO SCH (22:17)
[2019-08-10] MEDS: risperiDONE 1 MG TABLET (FP) PO SCH (22:17)
[2019-08-10] MEDS: DIVALPROEX SODIUM 500 MG TABLET E.C. PO SCH (22:17)
[2019-08-11] MEDS: chlordiazePOXIDE HCL 10 MG CAPSULE PO SCH ×2 (05:27→17:50)
[2019-08-11] MEDS: ACETAMINOPHEN 325 MG TABLET (FP) PO PRN (05:28)
[2019-08-11] MEDS: amLODIPine BESYLATE 10 MG TABLET (FP) PO SCH (10:03)
[2019-08-11] MEDS: BACITRACIN 15 GM TUBE TOPICAL OINTMENT TP SCH ×2 (10:03→22:02)
[2019-08-11] MEDS: PRENATAL VITAMINS W/ FOLIC ACID TABLET (FP) PO SCH (10:04)
[2019-08-11] MEDS: FLUOCINONIDE 0.05% CREAM (60 GM TUBE) TP SCH ×4 (10:04→22:02)
[2019-08-11] MEDS: NICOTINE 14 MG/24 HOURS TOPICAL PATCH TD SCH (10:04)
--- NOTE | 2019-08-11 12:51 | PN ---
[facility] CIWA - CIWA Score Nausea/Vomitin-No Nausea/No Vomiting Muscle Tremors: 1-None Visible, but [place] Anxiety: 1-Mildly Anxious Agitation: 0-Normal Activity Paroxysmal Sweats: 1-Minimal Palms Moist Orientation: 0-Oriented Tacttile Disturbances: 0-None Auditory Disturbances: 0-None Visual Disturbances: 0-None Headache: 0-None Present CIWA-Ar Total Score: 3 BHS Progress Note (SOAP) Subjective: 49 years old male admitted on 08/07/19 for alcohol withdrawal sx management treating with librium detox regimen requests to be seen by a psychiatrist for risperidal dosage adjustment denies suicidal denies homocidal Objective: 08/11/19 12:50 Vital Signs Temperature 96.6 F L 08/11/19 09:08 Pulse Rate 67 08/11/19 09:08 Respiratory Rate 20 08/11/19 09:08 Blood Pressure 137/93 08/11/19 09:08 O2 Sat by Pulse Oximetry (%) Laboratory Last Values WBC 4.2 K/mm3 (4.0-10.0) 08/08/19 07:35 RBC 4.63 M/mm3 (4.00-5.60) 08/08/19 07:35 Hgb 14.4 GM/dL (11.7-16.9) 08/08/19 07:35 Hct 43.3 % (35.4-49) 08/08/19 07:35 MCV 93.4 fl (80-96) 08/08/19 07:35 MCH 31.0 pg (25.7-33.7) 08/08/19 07:35 MCHC 33.2 g/dl (32.0-35.9) 08/08/19 07:35 RDW 15.5 % (11.9-15.9) 08/08/19 07:35 Plt Count 219 K/MM3 (134-434) 08/08/19 07:35 MPV 8.5 fl (7.5-11.1) 08/08/19 07:35 Sodium 139 mmol/L (136-145) 08/08/19 07:35 Potassium 4.1 mmol/L (3.5-5.1) 08/08/19 07:35 Chloride 103 mmol/L (98-107) 08/08/19 07:35 Carbon Dioxide 28 mmol/L (21-32) 08/08/19 07:35 Anion Gap 9 MMOL/L (8-16) 08/08/19 07:35 BUN 22.0 mg/dL (7-18) H 08/10/19 07:00 Creatinine 1.5 mg/dL (0.55-1.3) H 08/08/19 07:35 Est GFR (CKD-EPI)AfAm 61.59 08/08/19 07:35 Est GFR (CKD-EPI)NonAf 53.14 08/08/19 07:35 Random Glucose 83 mg/dL (74-106) 08/08/19 07:35 Calcium 9.2 mg/dL (8.5-10.1) 08/08/19 07:35 Total Bilirubin 0.4 mg/dL (0.2-1) 08/08/19 07:35 AST 14 U/L (15-37) L 08/08/19 07:35 ALT 25 U/L (13-61) 08/08/19 07:35 Alkaline Phosphatase 85 U/L (45-117) 08/08/19 07:35 Total Protein 7.2 g/dl (6.4-8.2) 08/08/19 07:35 Albumin 3.6 g/dl (3.4-5.0) 08/08/19 07:35 RPR Titer Nonreactive (NONREACTIVE) 08/08/19 07:35 lab noted Assessment: 08/11/19 12:50 alcohol withdrawal Plan: librium regimen
[2019-08-11] MEDS: DIVALPROEX SODIUM 500 MG TABLET E.C. PO SCH (22:02)
[2019-08-11] MEDS: THIAMINE HCL 100 MG TABLET (FP) PO SCH (22:02)
[2019-08-11] MEDS: risperiDONE 1 MG TABLET (FP) PO SCH (22:02)
[2019-08-12] MEDS ORDERED: chlordiazePOXIDE HCL 10 MG CAPSULE PO ONE (05:00)
[2019-08-12 09:14] VITALS: BP 157/94; PULSE 77; TEMP 97.2
--- NOTE | 2019-08-12 10:56 | DS ---
[facility] Detox Discharge Summary Admission Date: 08/07/19 Discharge Date: 08/12/19 - History Present History: Alcohol Dependence, Cannabis Dependence, Cocaine Dependence Additional Comments: Pt is medically cleared and is discharged today. Pt completed the detox protocol. Pt is encouraged to follow-up with outpatient CD program and also to follow-up with his pmd. Pt verbalized understanding. Pt is alert and oriented and in no respiratory distress. Pertinent Past History: h/o htn, alcohol, cocaine, and cannabis use disorder. - Physical Exam Results Vital Signs: Vital Signs Temperature 97.2 F L 08/12/19 09:14 Pulse Rate 77 08/12/19 09:14 Respiratory Rate 18 08/12/19 09:14 Blood Pressure 157/94 08/12/19 09:14 O2 Sat by Pulse Oximetry (%) Vital Signs 08/12/19 08/12/19 05:59 09:14 Temperature 97 F L 97.2 F L Pulse Rate 68 77 Respiratory 18 18 Rate Blood Pressure 130/85 157/94 Laboratory Last Values WBC 4.2 K/mm3 (4.0-10.0) 08/08/19 07:35 RBC 4.63 M/mm3 (4.00-5.60) 08/08/19 07:35 Hgb 14.4 GM/dL (11.7-16.9) 08/08/19 07:35 Hct 43.3 % (35.4-49) 08/08/19 07:35 MCV 93.4 fl (80-96) 08/08/19 07:35 MCH 31.0 pg (25.7-33.7) 08/08/19 07:35 MCHC 33.2 g/dl (32.0-35.9) 08/08/19 07:35 RDW 15.5 % (11.9-15.9) 08/08/19 07:35 Plt Count 219 K/MM3 (134-434) 08/08/19 07:35 MPV 8.5 fl (7.5-11.1) 08/08/19 07:35 Sodium 139 mmol/L (136-145) 08/08/19 07:35 Potassium 4.1 mmol/L (3.5-5.1) 08/08/19 07:35 Chloride 103 mmol/L (98-107) 08/08/19 07:35 Carbon Dioxide 28 mmol/L (21-32) 08/08/19 07:35 Anion Gap 9 MMOL/L (8-16) 08/08/19 07:35 BUN 22.0 mg/dL (7-18) H 08/10/19 07:00 Creatinine 1.5 mg/dL (0.55-1.3) H 08/08/19 07:35 Est GFR (CKD-EPI)AfAm 61.59 08/08/19 07:35 Est GFR (CKD-EPI)NonAf 53.14 08/08/19 07:35 Random Glucose 83 mg/dL (74-106) 08/08/19 07:35 Calcium 9.2 mg/dL (8.5-10.1) 08/08/19 07:35 Total Bilirubin 0.4 mg/dL (0.2-1) 08/08/19 07:35 AST 14 U/L (15-37) L 08/08/19 07:35 ALT 25 U/L (13-61) 08/08/19 07:35 Alkaline Phosphatase 85 U/L (45-117) 08/08/19 07:35 Total Protein 7.2 g/dl (6.4-8.2) 08/08/19 07:35 Albumin 3.6 g/dl (3.4-5.0) 08/08/19 07:35 RPR Titer Nonreactive (NONREACTIVE) 08/08/19 07:35 Labs noted. Pertinent Admission Physical Exam Findings: withdrawal symptoms. - Treatment Hospital Course: Detox Protocol Followed, Detoxed Safely, Responded well, Discharged Condition Good - Medication Discharge Medications: Ambulatory Orders Amlodipine Besylate [Norvasc -] 10 mg PO DAILY #30 tablet 07/06/19 Divalproex [Depakote -] 500 mg PO BID 08/07/19 Risperidone [Risperdal -] 2 mg PO HS 08/07/19 - Diagnosis (1) Alcohol use disorder Status: Acute (2) Cannabis abuse, uncomplicated Status: Acute (3) Cocaine dependence Status: Chronic Qualifiers: Substance use status: uncomplicated Qualified Code(s): F14.20 - Cocaine dependence, uncomplicated (4) Hypertension Status: Chronic Qualifiers: Hypertension type: unspecified Qualified Code(s): I10 - Essential (primary ) hypertension (5) Nicotine dependence Status: Chronic Qualifiers: Nicotine product type: cigarettes Substance use status: uncomplicated Qualified Code(s): F17.210 - Nicotine dependence, cigarettes, uncomplicated - AMA Did Patient Leave Against Medical Advice: No
== END 2019-08-12 08:55 | disposition home or self-care (01) | DRG 774 ==
LOC: YASAS 18:56 → Y3N 22:46
PROVIDERS: ADMIT Allergy & Immunology; ATTEND Allergy & Immunology
PROC: HZ2ZZZZ Detoxification Services for Substance Abuse Treatment (ICD-10-PCS; principal; 2019-08-07)
DX: F10.230 Alcohol dependence with withdrawal, uncomplicated (principal); F14.20 Cocaine dependence, uncomplicated; F12.20 Cannabis dependence, uncomplicated; F17.210 Nicotine dependence, cigarettes, uncomplicated; F19.24 Other psychoactive substance dependence with psychoactive substance-induced mood disorder; F25.9 Schizoaffective disorder, unspecified; F39 Unspecified mood [affective] disorder; F60.9 Personality disorder, unspecified; F32.9 Major depressive disorder, single episode, unspecified; I10 Essential (primary) hypertension; Z86.19 Personal history of other infectious and parasitic diseases; Z87.828 Personal history of other (healed) physical injury and trauma
CPT/HCPCS: 36415; 80053; 84520; 85027; 86593; 93005; 93010; J2794

== ENCOUNTER 2019-11-06 10:42 | Inpatient (IN) | payer OTHER ==
--- NOTE | 2019-11-06 11:38 | BHS.RME ---
Substance Use & Tx History - Substance Use History Alcohol Substance amount: 2 pints liquor; 3 24 oz beers Frequency of use: Daily Substance route: Oral Date of Last Use: 11/06/19 Opiates (Heroin) Substance amount: one hit Frequency of use: Less than 3 times per week Substance route: Inhalation (ex: sniffing or snorting) Date of Last Use: 10/30/19 Cocaine (Crack) Substance amount: $50 Frequency of use: Daily Substance route: Smoking Date of Last Use: 11/06/19 (3am) - Last Treatment Date of last treatment: 10/30/19 Treatment type: Substance Use Disorder (ROSANGELA) Where was last treatment: ER (states treated at [facility] ED for overdose related to the use of heroin which was laced with fentanyl) Physical/Psych/Mental Status - Behavior General Behavior: Increased activity (restlessness, agitation) Eye Contact: Normal - Cooperativeness Cooperativeness: Cooperative - Thinking Thought Processes: Logical Thought content: Future oriented - Physical Health Problems Is patient presently having any pain?: Yes (stomach ache/cramps due to withdrawal) Does patient presently have any injuries (include location): No Does patient currently have a fever: No Is patient : No CIWA Nausea/Vomitin Muscle Tremors: 4-Moderate,w/Arms Extend Anxiety: 4-Mod. Anxious/Guarded Agitation: 1-Slight > Activity Paroxysmal Sweats: 1-Minimal Palms Moist Orientation: 0-Oriented Tacttile Disturbances: 0-None Auditory Disturbances: 1-Very Mild Visual Disturbances: 1-Very Mild Sensitivity Headache: 2-Mild CIWA-Ar Total Score: 16
[2019-11-06 12:09] VITALS: BMI 23.3
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
[2019-11-06] MEDS ORDERED: chlordiazePOXIDE HCL 25 MG CAPSULE PO ONE (13:33)
[2019-11-06] MEDS ORDERED: ONDANSETRON *ODT* 4 MG TABLET SL ONE (13:33)
[2019-11-06] MEDS ORDERED: MAGNESIUM CITRATE 300 ML BOTTLE PO PRN (13:33)
[2019-11-06] MEDS ORDERED: chlordiazePOXIDE HCL 25 MG CAPSULE PO PRN (13:33)
[2019-11-06] MEDS ORDERED: BISMUTH SUBSALICYLATE 524 MG/30 ML UD PO PRN (13:33)
[2019-11-06] MEDS ORDERED: MAGNESIUM HYDROX 2400MG/30ML ORAL SUSPENSION 30 ML CUP PO PRN (13:33)
[2019-11-06] MEDS ORDERED: NICOTINE POLACRILEX 2 MG GUM BUC PRN (13:33)
[2019-11-06] MEDS ORDERED: METHOCARBAMOL 500 MG TABLET PO PRN (13:33)
[2019-11-06] MEDS ORDERED: ACETAMINOPHEN 325 MG TABLET (FP) PO PRN ×2 (13:33)
[2019-11-06] MEDS ORDERED: IBUPROFEN 400 MG TABLET (FP) PO PRN (13:33)
[2019-11-06] MEDS ORDERED: MENTHOL/PHENOL 1 EACH UD MM PRN (13:33)
[2019-11-06] MEDS ORDERED: MAG HYDROX/AL HYDROX/SIMETH 30 ML UNIT-DOSE CUP PO PRN (13:33)
[2019-11-06] MEDS: PETROLATUM, WHITE 30 GM TUBE TP SCH (14:00)
[2019-11-06] MEDS: hydrOXYzine PAMOATE 25 MG CAPSULE (FP) PO SCH ×3 (14:23→22:55)
[2019-11-06] MEDS: TOLNAFTATE 1% CREAM 15 GM TUBE TP SCH ×2 (14:27→22:57)
[2019-11-06] MEDS: SELENIUM SULFIDE 2.5% LOTION 4 OZ. TP SCH (14:30)
[2019-11-06] MEDS: PRENATAL VITAMINS W/ FOLIC ACID TABLET (FP) PO SCH (14:30)
[2019-11-06] MEDS: amLODIPine BESYLATE 10 MG TABLET (FP) PO SCH (14:30)
[2019-11-06] MEDS ORDERED: DIVALPROEX SODIUM 500 MG TABLET E.C. PO ONE (17:00)
[2019-11-06] MEDS: chlordiazePOXIDE HCL 25 MG CAPSULE PO SCH ×2 (18:24→22:54)
[2019-11-06] MEDS ORDERED: risperiDONE 2 MG TABLET PO ONE (22:00)
[2019-11-06] MEDS: MELATONIN 5 MG TABLETS PO SCH (22:55)
[2019-11-06] MEDS: THIAMINE HCL 100 MG TABLET (FP) PO SCH (22:55)
[2019-11-07] MEDS: chlordiazePOXIDE HCL 25 MG CAPSULE PO SCH ×4 (08:09→22:03)
[2019-11-07] MEDS: hydrOXYzine PAMOATE 25 MG CAPSULE (FP) PO SCH ×5 (08:09→22:04)
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
--- NOTE | 2019-11-07 10:37 | PN ---
S CIWA - CIWA Score Nausea/Vomitin-No Nausea/No Vomiting Muscle Tremors: None Anxiety: 3 Agitation: 2 Paroxysmal Sweats: 3 Orientation: 0-Oriented Tacttile Disturbances: 0-None Auditory Disturbances: 0-None Visual Disturbances: 0-None Headache: 2-Mild CIWA-Ar Total Score: 10 [facility] Progress Note (SOAP) Subjective: c/o headache, sweats, anxiety, and irritability. Objective: 11/07/19 10:35 Vital Signs 11/07/19 11/07/19 11/07/19 03:30 05:42 09:03 Temperature 97.2 F L 97.1 F L Pulse Rate 65 67 Respiratory 18 16 16 Rate Blood Pressure 130/79 124/81 O2 Sat by Pulse 98 Oximetry (%) Labs pending. Assessment: 11/07/19 10:36 AOX3, in no acute respiratory distress. Full ROM, ambulating in the unit. Withdrawal symptoms. Plan: continue detox.
[2019-11-07] MEDS: TOLNAFTATE 1% CREAM 15 GM TUBE TP SCH ×2 (11:02→22:08)
[2019-11-07] MEDS: PRENATAL VITAMINS W/ FOLIC ACID TABLET (FP) PO SCH (11:03)
[2019-11-07] MEDS: amLODIPine BESYLATE 10 MG TABLET (FP) PO SCH (11:03)
[2019-11-07] MEDS: PETROLATUM, WHITE 30 GM TUBE TP SCH (11:04)
[2019-11-07] MEDS: SELENIUM SULFIDE 2.5% LOTION 4 OZ. TP SCH (11:04)
[2019-11-07 18:12] LABS: HEMOGLOBIN 15.1 GM/dL (11.7-16.9); MCH 31.2 pg (25.7-33.7); MCHC 32.9 g/dl (32.0-35.9); MEAN CELL VOLUME 94.8 fl (80-96); PLATELET COUNT 198 K/MM3 (134-434); RBC 4.85 M/mm3 (4.00-5.60); RDW 14.5 % (11.9-15.9); WHITE BLOOD COUNT 3.4 K/mm3 (4.0-10.0)
[2019-11-07 18:30] LABS: ALBUMIN 3.2 g/dl (3.4-5.0); BILIRUBIN,TOTAL 0.3 mg/dL (0.2-1); BLOOD UREA NITROGEN 20.4 mg/dL (7-18); CALCIUM 8.8 mg/dL (8.5-10.1); CREATININE 1.4 mg/dL (0.55-1.3); POTASSIUM 4.7 mmol/L (3.5-5.1); TOT PROT 6.6 g/dl (6.4-8.2)
[2019-11-07] MEDS: THIAMINE HCL 100 MG TABLET (FP) PO SCH (22:02)
[2019-11-07] MEDS: MELATONIN 5 MG TABLETS PO SCH (22:04)
[2019-11-08] MEDS: hydrOXYzine PAMOATE 25 MG CAPSULE (FP) PO SCH ×2 (06:27→10:26)
[2019-11-08] MEDS: chlordiazePOXIDE HCL 25 MG CAPSULE PO SCH ×2 (06:27→10:24)
[2019-11-08 09:53] VITALS: BP 138/82; PULSE 79; TEMP 98.8
[2019-11-08] MEDS: PRENATAL VITAMINS W/ FOLIC ACID TABLET (FP) PO SCH (10:23)
[2019-11-08] MEDS: TOLNAFTATE 1% CREAM 15 GM TUBE TP SCH (10:23)
[2019-11-08] MEDS: amLODIPine BESYLATE 10 MG TABLET (FP) PO SCH (10:24)
[2019-11-08] MEDS: SELENIUM SULFIDE 2.5% LOTION 4 OZ. TP SCH (10:24)
[2019-11-08] MEDS: PETROLATUM, WHITE 30 GM TUBE TP SCH (10:28)
--- NOTE | 2019-11-08 12:22 | PN ---
S CIWA - CIWA Score Nausea/Vomitin-Mild Nausea/No Vomiting Muscle Tremors: 2 Anxiety: 2 Agitation: 2 Paroxysmal Sweats: No Perspiration Orientation: 0-Oriented Tacttile Disturbances: 1-Very Mild Itch/Numbness Auditory Disturbances: 0-None Visual Disturbances: 0-None Headache: 1-Very Mild CIWA-Ar Total Score: 9 S Progress Note (SOAP) Subjective: alert,irritable,anxious,interrupted sleep,pain in the body Objective: 11/08/19 12:20 Vital Signs Temperature 98.8 F 11/08/19 08:41 Pulse Rate 79 11/08/19 08:41 Respiratory Rate 18 11/08/19 08:41 Blood Pressure 138/82 11/08/19 08:41 O2 Sat by Pulse Oximetry (%) 100 11/08/19 06:06 Assessment: 11/08/19 12:21 withdrawal symptom Plan: continue detox librium regimen,psychiatric reevaluation for medication,encourage oral fluid,repeat cmp in am
--- NOTE | 2019-11-08 12:24 | PN ---
S Progress Note Note: pt is refusing to stay and complete his detox. Pt was encouraged to stay to prevent relapse, seizures, DT, OD and/or loss however, pt chose to sign out AMA.
--- NOTE | 2019-11-08 12:26 | DS ---
[facility] Detox Discharge Summary Admission Date: 11/06/19 - History Present History: Alcohol Dependence, Cocaine Dependence - Physical Exam Results Vital Signs: Vital Signs Temperature 98.8 F 11/08/19 08:41 Pulse Rate 79 11/08/19 08:41 Respiratory Rate 18 11/08/19 08:41 Blood Pressure 138/82 11/08/19 08:41 O2 Sat by Pulse Oximetry (%) 100 11/08/19 06:06 Pertinent Admission Physical Exam Findings: Vital Signs Temperature 98.8 F 11/08/19 08:41 Pulse Rate 79 11/08/19 08:41 Respiratory Rate 18 11/08/19 08:41 Blood Pressure 138/82 11/08/19 08:41 O2 Sat by Pulse Oximetry (%) 100 11/08/19 06:06 Laboratory Tests 11/07/19 11/07/19 11/07/19 07:20 07:20 07:20 WBC 3.4 L RBC 4.85 Hgb 15.1 Hct 46.0 MCV 94.8 MCH 31.2 MCHC 32.9 RDW 14.5 Plt Count 198 MPV 9.0 Sodium 141 Potassium 4.7 Chloride 107 Carbon Dioxide 27 Anion Gap 7 L BUN 20.4 H Creatinine 1.4 H Est GFR (CKD-EPI)AfAm 66.95 Est GFR (CKD-EPI)NonAf 57.76 Random Glucose 88 Calcium 8.8 Total Bilirubin 0.3 AST 13 L ALT 19 Alkaline Phosphatase 78 Total Protein 6.6 Albumin 3.2 L RPR Titer HIV Ag/Ab Combo Qual Negative 11/07/19 07:20 WBC RBC Hgb Hct MCV MCH MCHC RDW Plt Count MPV Sodium Potassium Chloride Carbon Dioxide Anion Gap BUN Creatinine Est GFR (CKD-EPI)AfAm Est GFR (CKD-EPI)NonAf Random Glucose Calcium Total Bilirubin AST ALT Alkaline Phosphatase Total Protein Albumin RPR Titer Nonreactive HIV Ag/Ab Combo Qual aaox3 ambulating no acute distress encouraged to stay pt chose to sign out AMA. - Treatment Hospital Course: Rehab Referral Accepted - Medication Discharge Medications: Ambulatory Orders Amlodipine Besylate [Norvasc -] 10 mg PO DAILY #30 tablet 07/06/19 Risperidone [Risperdal -] 2 mg PO HS 08/07/19 Divalproex [Depakote -] 500 mg PO BID 11/06/19 - Diagnosis (1) Cocaine dependence Current Visit: Yes Status: Chronic Qualifiers: Substance use status: uncomplicated Qualified Code(s): F14.20 - Cocaine dependence, uncomplicated (2) Alcohol dependence with withdrawal, uncomplicated Current Visit: Yes Status: Chronic (3) Chronic renal insufficiency, stage III (moderate) Current Visit: Yes Status: Chronic (4) Hypertension Current Visit: Yes Status: Chronic Qualifiers: Hypertension type: unspecified Qualified Code(s): I10 - Essential (primary) hypertension (5) Nicotine dependence Current Visit: Yes Status: Chronic Qualifiers: Nicotine product type: cigarettes Substance use status: uncomplicated Qualified Code(s): F17.210 - Nicotine dependence, cigarettes, uncomplicated (6) Cannabis abuse, uncomplicated Current Visit: No Status: Acute (7) Substance induced mood disorder Current Visit: No Status: Acute (8) Substance-induced sleep disorder Current Visit: No Status: Acute (9) Depression Current Visit: No Status: Chronic (10) Mental status at baseline Current Visit: No Status: Chronic (11) Mood disorder Current Visit: No Status: Chronic (12) Personality disorder, unspecified Current Visit: No Status: Chronic (13) Schizophrenia Current Visit: No Status: Chronic (14) Substance induced mood disorder Current Visit: No Status: Chronic (15) Schizoaffective disorder Current Visit: No Status: Ruled-out - AMA Did Patient Leave Against Medical Advice: Yes
[2019-11-09] MEDS ORDERED: chlordiazePOXIDE HCL 10 MG CAPSULE PO PRN
[2019-11-09] MEDS ORDERED: chlordiazePOXIDE HCL 10 MG CAPSULE PO SCH (05:00)
[2019-11-10] MEDS ORDERED: chlordiazePOXIDE HCL 10 MG CAPSULE PO SCH (05:00)
[2019-11-11] MEDS ORDERED: chlordiazePOXIDE HCL 10 MG CAPSULE PO ONE (05:00)
== END 2019-11-08 12:35 | disposition left against medical advice (07) | DRG 770 ==
LOC: YASAS 10:42 → Y6N 13:29
PROVIDERS: ADMIT Allergy & Immunology; ATTEND Allergy & Immunology
PROC: HZ2ZZZZ Detoxification Services for Substance Abuse Treatment (ICD-10-PCS; principal; 2019-11-06)
DX: F10.230 Alcohol dependence with withdrawal, uncomplicated (principal); F14.20 Cocaine dependence, uncomplicated; F12.20 Cannabis dependence, uncomplicated; F17.210 Nicotine dependence, cigarettes, uncomplicated; F19.282 Other psychoactive substance dependence with psychoactive substance-induced sleep disorder; F20.9 Schizophrenia, unspecified; F19.24 Other psychoactive substance dependence with psychoactive substance-induced mood disorder; F32.9 Major depressive disorder, single episode, unspecified; F60.3 Borderline personality disorder; I12.9 Hypertensive chronic kidney disease with stage 1 through stage 4 chronic kidney disease, or unspecified chronic kidney disease; N18.3 Chronic kidney disease, stage 3 (moderate); Z86.19 Personal history of other infectious and parasitic diseases; Z59.0 Homelessness
CPT/HCPCS: 36415; 80053; 85027; 86593; 87389

== ENCOUNTER 2020-11-23 01:13 | Inpatient (IN) | payer OTHER ==
[2020-11-23 01:47] VITALS: BMI 26.4
[2020-11-23] MEDS ORDERED: MAG HYDROX/AL HYDROX/SIMETH 30 ML UNIT-DOSE CUP PO PRN (01:53)
[2020-11-23] MEDS ORDERED: LORazepam 1 MG TABLET PO PRN (01:53)
[2020-11-23] MEDS ORDERED: MAGNESIUM HYDROX 2400MG/30ML ORAL SUSPENSION 30 ML CUP PO PRN (01:53)
[2020-11-23] MEDS ORDERED: MENTHOL/PHENOL 1 EACH UD MM PRN (01:53)
[2020-11-23] MEDS ORDERED: METHOCARBAMOL 500 MG TABLET PO PRN (01:53)
[2020-11-23] MEDS ORDERED: cloNIDine HCL 0.1 MG TABLET PO ONE (01:53)
[2020-11-23] MEDS ORDERED: ONDANSETRON *ODT* 4 MG TABLET SL PRN (01:53)
[2020-11-23] MEDS ORDERED: MAGNESIUM CITRATE 300 ML BOTTLE PO PRN (01:53)
[2020-11-23] MEDS ORDERED: ACETAMINOPHEN 325 MG TABLET (FP) PO PRN ×2 (01:53)
[2020-11-23] MEDS ORDERED: BISMUTH SUBSALICYLATE 524 MG/30 ML UD PO PRN (01:53)
[2020-11-23] MEDS ORDERED: guaiFENesin 200 MG/10 ML 10 ML UNIT-DOSE CUPS PO PRN (01:53)
[2020-11-23] MEDS ORDERED: P-EPHED 60MG/TRIPROLIDI 2.5MG TABLET PO PRN (01:53)
[2020-11-23] MEDS ORDERED: IBUPROFEN 400 MG TABLET (FP) PO PRN (01:53)
[2020-11-23] MEDS ORDERED: NICOTINE POLACRILEX 2 MG GUM BUC PRN (01:53)
[2020-11-23] MEDS ORDERED: DICYCLOMINE HCL 10 MG CAPSULE PO PRN (01:53)
[2020-11-23] MEDS: LORazepam 2 MG TABLET PO SCH ×4 (07:01→22:44)
[2020-11-23 10:34] LABS: POTASSIUM 4.1 mmol/L (3.5-5.1)
[2020-11-23] MEDS: amLODIPine BESYLATE 10 MG TABLET (FP) PO SCH (10:38)
[2020-11-23] MEDS: PRENATAL VITAMINS W/ FOLIC ACID TABLET (FP) PO SCH (10:38)
[2020-11-23] MEDS: NICOTINE 21 MG/24 HOURS TOPICAL PATCH TD SCH (10:38)
[2020-11-23 10:40] LABS: HEMATOCRIT 41.3 % (35.4-49); HEMOGLOBIN 14.1 GM/dL (11.7-16.9); MCH 31.6 pg (25.7-33.7); MCHC 34.2 g/dl (32.0-35.9); MEAN CELL VOLUME 92.4 fl (80-96); MEAN PLT VOLUME 8.8 fl (7.5-11.1); PLATELET COUNT 185 K/MM3 (134-434); RBC 4.47 M/mm3 (4.00-5.60); RDW 15.2 % (11.9-15.9); WHITE BLOOD COUNT 10.3 K/mm3 (4.0-10.0)
[2020-11-23 10:53] LABS: CALCIUM 9.2 mg/dL (8.5-10.1)
[2020-11-23 10:54] LABS: ALBUMIN 3.5 g/dl (3.4-5.0); BLOOD UREA NITROGEN 16.6 mg/dL (7-18)
[2020-11-23 10:57] LABS: CREATININE 1.4 mg/dL (0.55-1.3)
[2020-11-23 10:58] LABS: BILIRUBIN,TOTAL 1.4 mg/dL (0.2-1); TOT PROT 6.8 g/dl (6.4-8.2)
[2020-11-23 11:30] LABS: HIV INTERPRETATION NEGATIVE (NEGATIVE)
[2020-11-23] MEDS: MELATONIN 5 MG TABLETS PO SCH (22:44)
[2020-11-23] MEDS: THIAMINE HCL 100 MG TABLET (FP) PO SCH (22:44)
[2020-11-24] MEDS: LORazepam 1 MG TABLET PO SCH ×4 (06:43→22:36)
[2020-11-24] MEDS: PRENATAL VITAMINS W/ FOLIC ACID TABLET (FP) PO SCH (10:15)
[2020-11-24] MEDS: amLODIPine BESYLATE 10 MG TABLET (FP) PO SCH (10:15)
[2020-11-24] MEDS: NICOTINE 21 MG/24 HOURS TOPICAL PATCH TD SCH (10:17)
[2020-11-24] MEDS: MELATONIN 5 MG TABLETS PO SCH (22:36)
[2020-11-24] MEDS: THIAMINE HCL 100 MG TABLET (FP) PO SCH (22:36)
[2020-11-25] MEDS ORDERED: LORazepam 0.5 MG TABLET PO PRN
[2020-11-25] MEDS ORDERED: LORazepam 0.5 MG TABLET PO SCH (05:00)
[2020-11-25 08:31] VITALS: BP 133/89; PULSE 66; TEMP 98.8
[2020-11-26] MEDS ORDERED: LORazepam 0.5 MG TABLET PO ONE (05:00)
== END 2020-11-25 07:20 | disposition left against medical advice (07) | DRG 770 ==
LOC: YASAS 01:13 → Y3N 02:15
PROVIDERS: ADMIT Allergy & Immunology; ATTEND Allergy & Immunology
PROC: HZ2ZZZZ Detoxification Services for Substance Abuse Treatment (ICD-10-PCS; principal; 2020-11-23)
DX: F10.230 Alcohol dependence with withdrawal, uncomplicated (principal); F14.20 Cocaine dependence, uncomplicated; F12.20 Cannabis dependence, uncomplicated; F17.210 Nicotine dependence, cigarettes, uncomplicated; F19.282 Other psychoactive substance dependence with psychoactive substance-induced sleep disorder; F19.24 Other psychoactive substance dependence with psychoactive substance-induced mood disorder; F25.9 Schizoaffective disorder, unspecified; F39 Unspecified mood [affective] disorder; F60.3 Borderline personality disorder; G40.909 Epilepsy, unspecified, not intractable, without status epilepticus; I10 Essential (primary) hypertension; B35.3 Tinea pedis; R25.3 Fasciculation; Z91.14 Patient's other noncompliance with medication regimen; Z59.0 Homelessness
CPT/HCPCS: 36415; 80053; 80164; 85027; 86593; 86780; 87389; 93005; 93010; C9803; J0735; U0003; U0005

== ENCOUNTER 2022-04-26 11:57 | Inpatient (IN) | payer OTHER ==
[2022-04-26 12:49] VITALS: BMI 25.1
[2022-04-26] MEDS ORDERED: BENZOCAINE/MENTHOL (CHLORASEPTIC ) LOZENGE MM PRN (16:55)
[2022-04-26] MEDS ORDERED: IBUPROFEN 400 MG TABLET (FP) PO PRN (16:55)
[2022-04-26] MEDS ORDERED: MELATONIN 5 MG TABLETS PO PRN (16:55)
[2022-04-26] MEDS ORDERED: DICYCLOMINE HCL 10 MG CAPSULE PO PRN (16:55)
[2022-04-26] MEDS ORDERED: IBUPROFEN 600 MG TABLET (FP) PO PRN (16:55)
[2022-04-26] MEDS ORDERED: hydrOXYzine PAMOATE 25 MG CAPSULE (FP) PO PRN (16:55)
[2022-04-26] MEDS ORDERED: P-EPHED 60MG/TRIPROLIDI 2.5MG TABLET PO PRN (16:55)
[2022-04-26] MEDS ORDERED: MAGNESIUM CITRATE 300 ML BOTTLE PO PRN (16:55)
[2022-04-26] MEDS ORDERED: LOPERAMIDE HCL 2 MG CAPSULE PO PRN (16:55)
[2022-04-26] MEDS ORDERED: MAGNESIUM HYDROX 2400MG/30ML ORAL SUSPENSION 30 ML CUP PO PRN (16:55)
[2022-04-26] MEDS ORDERED: guaiFENesin 200 MG/10 ML 10 ML UNIT-DOSE CUPS PO PRN (16:55)
[2022-04-26] MEDS ORDERED: ONDANSETRON *ODT* 4 MG TABLET SL PRN (16:55)
[2022-04-26] MEDS ORDERED: BISMUTH SUBSALICYLATE 524 MG/30 ML PO PRN (16:55)
[2022-04-26] MEDS ORDERED: MAG HYDROX/AL HYDROX/SIMETH 30 ML UNIT-DOSE CUP PO PRN (16:55)
[2022-04-26] MEDS ORDERED: ACETAMINOPHEN 325 MG TABLET (FP) PO PRN ×2 (16:55)
[2022-04-26] MEDS ORDERED: METHOCARBAMOL 500 MG TABLET PO PRN (16:55)
[2022-04-26] MEDS: amLODIPine BESYLATE 10 MG TABLET (FP) PO SCH (17:31)
[2022-04-26] MEDS ORDERED: THIAMINE HCL 100 MG TABLET (FP) PO SCH (22:00)
[2022-04-26] MEDS ORDERED: cloNIDine HCL 0.1 MG TABLET PO ONE (23:50)
[2022-04-27] MEDS ORDERED: PRENATAL VITAMINS W/ FOLIC ACID TABLET (FP) PO SCH (10:00)
[2022-04-27] MEDS: amLODIPine BESYLATE 10 MG TABLET (FP) PO SCH (10:14)
[2022-04-27 11:35] LABS: HEMATOCRIT 42.9 % (35.4-49); MCH 30.5 pg (25.7-33.7); MCHC 32.8 g/dl (32.0-35.9); MEAN PLT VOLUME 8.5 fl (7.5-11.1); PLATELET COUNT 217 10^3/uL (134-434); RBC 4.61 M/mm3 (4.00-5.60); RDW 14.7 % (11.9-15.9); WHITE BLOOD COUNT 3.6 K/mm3 (4.0-10.0)
[2022-04-27 11:43] LABS: ALBUMIN 3.1 g/dl (3.4-5.0); BLOOD UREA NITROGEN 11.8 mg/dL (7-18); CALCIUM 9.2 mg/dL (8.5-10.1)
[2022-04-27 11:45] LABS: CREATININE 1.2 mg/dL (0.55-1.3)
[2022-04-27 11:46] LABS: BILIRUBIN,TOTAL 0.3 mg/dL (0.2-1)
[2022-04-27 11:47] LABS: TOT PROT 6.4 g/dl (6.4-8.2)
[2022-04-27 12:36] LABS: HIV INTERPRETATION NEGATIVE (NEGATIVE)
[2022-04-27 13:17] VITALS: BP 153/110; PULSE 72; RESP 20; TEMP 98.1
== END 2022-04-27 12:45 | disposition left against medical advice (07) | DRG 770 ==
LOC: YASAS 11:57 → UNDOADMIN 17:04 → Y6N 17:04
PROVIDERS: ADMIT Allergy & Immunology; ATTEND Surgery
PROC: HZ2ZZZZ Detoxification Services for Substance Abuse Treatment (ICD-10-PCS; principal; 2022-04-26)
DX: F10.230 Alcohol dependence with withdrawal, uncomplicated (principal); F14.20 Cocaine dependence, uncomplicated; F17.210 Nicotine dependence, cigarettes, uncomplicated; I10 Essential (primary) hypertension
CPT/HCPCS: 36415; 80053; 85027; 86593; 86780; 87389; 87811; C9803-CS; U0003; U0005

== ENCOUNTER 2023-03-10 17:33 | Inpatient (IN) | payer OTHER ==
[~2023-03-10 17:33] MED LIST changes: -MELATONIN 5 MG TABLETS PO PRN; +PENICILLIN G BENZATHINE 2,400,000 UNIT/4 ML PFS IM ONE
[2023-03-10 20:49] VITALS: BMI 21.2
[2023-03-10] MEDS ORDERED: guaiFENesin 600 MG TABLET.ER (FP) PO PRN (23:42)
[2023-03-10] MEDS ORDERED: MAG HYDROX/AL HYDROX/SIMETH 30 ML UNIT-DOSE CUP PO PRN (23:42)
[2023-03-10] MEDS ORDERED: BENZONATATE 200 MG CAPSULE PO PRN (23:42)
[2023-03-10] MEDS ORDERED: MAGNESIUM HYDROX 2400MG/30ML ORAL SUSPENSION 30 ML CUP PO PRN (23:42)
[2023-03-10] MEDS ORDERED: LOPERAMIDE HCL 2 MG CAPSULE PO PRN (23:42)
[2023-03-10] MEDS ORDERED: POLYETHYLENE GLYCOL (HEALTHYLAX) 3350 17 GM PACKET PO PRN (23:42)
[2023-03-10] MEDS ORDERED: ACETAMINOPHEN 325 MG TABLET (FP) PO PRN (23:42)
[2023-03-10] MEDS ORDERED: P-EPHED 60MG/TRIPROLIDI 2.5MG TABLET PO PRN (23:42)
[2023-03-10] MEDS ORDERED: IBUPROFEN 400 MG TABLET (FP) PO PRN (23:42)
[2023-03-10] MEDS ORDERED: hydrOXYzine PAMOATE 25 MG CAPSULE (FP) PO PRN (23:42)
[2023-03-10] MEDS ORDERED: IBUPROFEN 600 MG TABLET (FP) PO PRN (23:42)
[2023-03-10] MEDS ORDERED: AMMONIUM LACTATE 12% LOTION 225 GM BOTTLE TP PRN (23:42)
[2023-03-10] MEDS ORDERED: BENZOCAINE/MENTHOL (CHLORASEPTIC ) LOZENGE MM PRN (23:42)
[2023-03-10] MEDS ORDERED: COLLOIDAL OATMEAL 1 BAR EACH TP PRN (23:42)
[2023-03-10] MEDS ORDERED: NICOTINE POLACRILEX 2 MG GUM BUC PRN (23:46)
[2023-03-11] MEDS: amLODIPine BESYLATE 10 MG TABLET (FP) PO SCH ×2 (01:34→10:01)
[2023-03-11] MEDS: MELATONIN 5 MG TABLETS PO SCH ×2 (01:35→21:58)
[2023-03-11] MEDS: PRENATAL VITAMINS W/ FOLIC ACID TABLET (FP) PO SCH (10:01)
[2023-03-11 11:18] LABS: EPI CELLS 15 /uL (0-25.1); HYALINE CASTS 0 /uL (0-3.1); PH,URINE 5.5 (5.0-8.0); URINE APPEARANCE CLEAR; URINE BACTERIA 5 /uL (0-1359); URINE BILIRUBIN NEGATIVE (NEGATIVE); URINE COLOR YELLOW; URINE GLUCOSE (UA) NEGATIVE (NEGATIVE); URINE KETONE NEGATIVE (NEGATIVE); URINE LEUK ESTERASE TRACE (NEGATIVE); URINE NITRITE NEGATIVE (NEGATIVE); URINE PROTEIN NEGATIVE (NEGATIVE); URINE RBC 7 /uL (0-23.9); URINE UROBILINOGEN 0.2 mg/dL (0.2-1.0); URINE WBC 40 /uL (0-25.8)
[2023-03-11 11:25] LABS: HEMATOCRIT 47.2 % (35.4-49); HEMOGLOBIN 15.4 GM/dL (11.7-16.9); MCH 31.7 pg (25.7-33.7); MCHC 32.7 g/dl (32.0-35.9); MEAN CELL VOLUME 97.1 fl (80-96); MEAN PLT VOLUME 8.5 fl (7.5-11.1); PLATELET COUNT 196 10^3/uL (134-434); RBC 4.86 M/mm3 (4.00-5.60); RDW 14.5 % (11.9-15.9); WHITE BLOOD COUNT 4.1 K/mm3 (4.0-10.0)
[2023-03-11 11:30] LABS: POTASSIUM 4.7 mmol/L (3.5-5.1)
[2023-03-11 11:38] LABS: TOT PROT 6.7 g/dl (6.4-8.2)
[2023-03-11 11:42] LABS: CALCIUM 9.1 mg/dL (8.5-10.1)
[2023-03-11 11:43] LABS: ALBUMIN 3.3 g/dl (3.4-5.0); BLOOD UREA NITROGEN 26.3 mg/dL (7-18)
[2023-03-11 11:46] LABS: CREATININE 1.3 mg/dL (0.55-1.3)
[2023-03-11 11:47] LABS: BILIRUBIN,TOTAL 0.3 mg/dL (0.2-1)
[2023-03-11] MEDS ORDERED: ONDANSETRON *ODT* 4 MG TABLET SL PRN (14:53)
[2023-03-11] MEDS ORDERED: PANTOPRAZOLE 20 MG TABLET PO PRN (14:58)
[2023-03-11] MEDS ORDERED: TRIMETHOBENZAMIDE HCL 200MG/2ML INJ IM ONE (17:08)
[2023-03-11] MEDS ORDERED: TUBERCULIN PPD 5 TU/0.1ML VIAL ID ONE (17:10)
[2023-03-11] MEDS: cloNIDine HCL 0.1 MG TABLET PO PRN (17:56)
[2023-03-11] MEDS ORDERED: THIAMINE HCL 100 MG TABLET (FP) PO SCH (22:00)
[2023-03-11] MEDS ORDERED: cloNIDine HCL 0.1 MG TABLET PO SCH (22:00)
[2023-03-12 08:00] VITALS: RESP 17; TEMP 97.7
[2023-03-12] MEDS: cloNIDine HCL 0.1 MG TABLET PO PRN ×2 (08:11→14:34)
[2023-03-12] MEDS ORDERED: PENICILLIN G BENZATHINE 2,400,000 UNIT/4 ML PFS IM ONE (10:00)
[2023-03-12] MEDS: PRENATAL VITAMINS W/ FOLIC ACID TABLET (FP) PO SCH (10:37)
[2023-03-12] MEDS: amLODIPine BESYLATE 10 MG TABLET (FP) PO SCH (10:38)
[2023-03-12 15:49] VITALS: BP 139/103; PULSE 116
[2023-03-19] MEDS ORDERED: PENICILLIN G BENZATHINE 2,400,000 UNIT/4 ML PFS IM ONE (10:00)
[2023-03-26] MEDS ORDERED: PENICILLIN G BENZATHINE 2,400,000 UNIT/4 ML PFS IM ONE (10:00)
== END 2023-03-12 16:05 | disposition left against medical advice (07) | DRG 770 ==
LOC: YASAS 17:33 → Y5N 03-11 00:56
PROVIDERS: ADMIT Allergy & Immunology; ATTEND Psychiatry & Neurology Pain Medicine
PROC: HZ42ZZZ Group Counseling for Substance Abuse Treatment, Cognitive-Behavioral (ICD-10-PCS; principal; 2023-03-11)
DX: F10.20 Alcohol dependence, uncomplicated (principal); F14.20 Cocaine dependence, uncomplicated; F12.20 Cannabis dependence, uncomplicated; F17.210 Nicotine dependence, cigarettes, uncomplicated; F19.282 Other psychoactive substance dependence with psychoactive substance-induced sleep disorder; F19.24 Other psychoactive substance dependence with psychoactive substance-induced mood disorder; F60.2 Antisocial personality disorder; I12.9 Hypertensive chronic kidney disease with stage 1 through stage 4 chronic kidney disease, or unspecified chronic kidney disease; N18.30 Chronic kidney disease, stage 3 unspecified; R11.0 Nausea; R76.8 Other specified abnormal immunological findings in serum; F91.8 Other conduct disorders; Z91.199 Patient's noncompliance with other medical treatment and regimen due to unspecified reason; Z59.00 Homelessness unspecified
CPT/HCPCS: 36415; 80053; 81003; 85027; 86593; 86780; 87635; 87811

== ENCOUNTER 2023-03-11 21:28 | Emergency (ER) | payer OTHER ==
[2023-03-11] MEDS ORDERED: LACTATED RINGERS SOLUTION 1000 ML INFUS.BAG IV ONE (21:43)
[2023-03-11] MEDS ORDERED: FAMOTIDINE 20 MG/50 ML IVPB 20 MG/50 ML MG IVPB ONE (21:43)
[2023-03-11 22:00] VITALS: BMI 24.4
[2023-03-12] MEDS ORDERED: amLODIPine BESYLATE 10 MG TABLET (FP) PO ONE ×3 (00:08→04:25)
[2023-03-12] MEDS ORDERED: amLODIPine BESYLATE 10 MG TABLET (FP) ONE ×2 (00:14→04:43)
[2023-03-12] MEDS ORDERED: ONDANSETRON 4 MG/2 ML VIAL IVPUSH ONE (03:55)
[2023-03-12] MEDS ORDERED: ONDANSETRON 4 MG/2 ML VIAL ONE (04:18)
[2023-03-12] MEDS ORDERED: LABETALOL HCL 5 MG/1 ML (100MG/20 ML VIAL) IVPUSH ONE (04:18)
[2023-03-12 04:48] LABS: HEMATOCRIT 50.7 % (35.4-49); MCH 31.6 pg (25.7-33.7); MCHC 33.5 g/dl (32.0-35.9); MEAN CELL VOLUME 94.2 fl (80-96); MEAN PLT VOLUME 7.9 fl (7.5-11.1); PLATELET COUNT 207 10^3/uL (134-434); RBC 5.38 M/mm3 (4.00-5.60); RDW 14.5 % (11.9-15.9); WHITE BLOOD COUNT 8.3 K/mm3 (4.0-10.0)
[2023-03-12 05:21] VITALS: TEMP 98.4
[2023-03-12] MEDS ORDERED: hydrALAZINE HCL 20 MG/ML VIAL IVPUSH ONE (05:21)
[2023-03-12] MEDS ORDERED: hydrALAZINE HCL 20 MG/ML VIAL ONE (05:37)
[2023-03-12 06:04] VITALS: BP 193/113; PULSE 80; RESP 18
[2023-03-12 08:25] LABS: ANISOCYTOSIS 0; MACROCYTOSIS 0
== END 2023-03-12 06:32 | disposition home or self-care (01) ==
LOC: JER 21:28
PROC: 3E033GC Introduction of Other Therapeutic Substance into Peripheral Vein, Percutaneous Approach (ICD-10-PCS; principal; 2023-03-12)
PROC: 3E033GC Introduction of Other Therapeutic Substance into Peripheral Vein, Percutaneous Approach (ICD-10-PCS; 2023-03-12)
DX: R11.2 Nausea with vomiting, unspecified (principal); R25.1 Tremor, unspecified; R10.13 Epigastric pain; I10 Essential (primary) hypertension
CPT/HCPCS: 36415; 85025; 99284-25

== ENCOUNTER 2023-08-17 08:15 | Inpatient (IN) | payer OTHER ==
[2023-08-17 08:48] VITALS: RESP 18; BMI 21.6
[2023-08-17] MEDS ORDERED: chlordiazePOXIDE HCL 25 MG CAPSULE PO PRN (09:55)
[2023-08-17] MEDS ORDERED: NICOTINE POLACRILEX 2 MG GUM BUC PRN (09:57)
[2023-08-17] MEDS ORDERED: BENZONATATE 200 MG CAPSULE PO PRN (09:57)
[2023-08-17] MEDS ORDERED: NALOXONE HCL (KLOXXADO) 8 MG SPRAY NS PRN (09:57)
[2023-08-17] MEDS ORDERED: BISMUTH SUBSALICYLATE 524 MG/30 ML PO PRN (09:57)
[2023-08-17] MEDS ORDERED: LOPERAMIDE HCL 2 MG CAPSULE PO PRN (09:57)
[2023-08-17] MEDS ORDERED: MAG HYDROX/AL HYDROX/SIMETH 30 ML UNIT-DOSE CUP PO PRN (09:57)
[2023-08-17] MEDS ORDERED: hydrOXYzine PAMOATE 25 MG CAPSULE (FP) PO PRN (09:57)
[2023-08-17] MEDS ORDERED: ONDANSETRON *ODT* 4 MG TABLET SL PRN (09:57)
[2023-08-17] MEDS ORDERED: MAGNESIUM HYDROX 2400MG/30ML ORAL SUSPENSION 30 ML CUP PO PRN (09:57)
[2023-08-17] MEDS ORDERED: DICYCLOMINE HCL 10 MG CAPSULE PO PRN (09:57)
[2023-08-17] MEDS ORDERED: BENZOCAINE/MENTHOL (CHLORASEPTIC ) LOZENGE MM PRN (09:57)
[2023-08-17] MEDS ORDERED: IBUPROFEN 600 MG TABLET (FP) PO PRN (09:57)
[2023-08-17] MEDS ORDERED: POLYETHYLENE GLYCOL (HEALTHYLAX) 3350 17 GM PACKET PO PRN (09:57)
[2023-08-17] MEDS ORDERED: NALOXONE HCL 0.4 MG/ML VIAL IM PRN (09:57)
[2023-08-17] MEDS ORDERED: ACETAMINOPHEN 325 MG TABLET (FP) PO PRN (09:57)
[2023-08-17] MEDS ORDERED: IBUPROFEN 400 MG TABLET (FP) PO PRN (09:57)
[2023-08-17] MEDS ORDERED: METHOCARBAMOL 500 MG TABLET PO PRN (09:57)
[2023-08-17] MEDS ORDERED: guaiFENesin 600 MG TABLET.ER (FP) PO PRN (09:57)
[2023-08-17] MEDS ORDERED: PRENATAL VITAMINS W/ FOLIC ACID TABLET (FP) PO ONE (11:03)
[2023-08-17] MEDS: PRENATAL VITAMINS W/ FOLIC ACID TABLET (FP) PO SCH (11:06)
[2023-08-17] MEDS ORDERED: cloNIDine HCL 0.1 MG TABLET PO PRN (11:31)
[2023-08-17] MEDS: amLODIPine BESYLATE 10 MG TABLET (FP) PO SCH (12:09)
[2023-08-17] MEDS: DIVALPROEX SODIUM 500 MG TABLET E.C. PO SCH ×2 (12:12→22:17)
[2023-08-17] MEDS: chlordiazePOXIDE HCL 25 MG CAPSULE PO SCH ×2 (17:24→22:17)
[2023-08-17 20:43] VITALS: BP 145/96; PULSE 71; TEMP 98.4
[2023-08-17] MEDS ORDERED: THIAMINE HCL 100 MG TABLET (FP) PO SCH (22:00)
[2023-08-17] MEDS ORDERED: MELATONIN 5 MG TABLETS PO SCH (22:00)
[2023-08-18] MEDS: chlordiazePOXIDE HCL 25 MG CAPSULE PO SCH ×2 (05:21→10:54)
[2023-08-18] MEDS: PRENATAL VITAMINS W/ FOLIC ACID TABLET (FP) PO SCH (10:53)
[2023-08-18] MEDS: DIVALPROEX SODIUM 500 MG TABLET E.C. PO SCH (10:53)
[2023-08-18] MEDS: amLODIPine BESYLATE 10 MG TABLET (FP) PO SCH (10:53)
[2023-08-19] MEDS ORDERED: chlordiazePOXIDE HCL 25 MG CAPSULE PO SCH (05:00)
[2023-08-20] MEDS ORDERED: chlordiazePOXIDE HCL 10 MG CAPSULE PO PRN
[2023-08-20] MEDS ORDERED: chlordiazePOXIDE HCL 10 MG CAPSULE PO SCH (05:00)
[2023-08-21] MEDS ORDERED: chlordiazePOXIDE HCL 10 MG CAPSULE PO SCH (05:00)
[2023-08-22] MEDS ORDERED: chlordiazePOXIDE HCL 10 MG CAPSULE PO ONE (05:00)
== END 2023-08-18 10:47 | disposition left against medical advice (07) | DRG 770 ==
LOC: YASAS 08:15 → SUATTDRO 08:15 → Y3N 10:27
PROVIDERS: ADMIT Allergy & Immunology; ATTEND Surgery
PROC: HZ2ZZZZ Detoxification Services for Substance Abuse Treatment (ICD-10-PCS; principal; 2023-08-17)
DX: F10.230 Alcohol dependence with withdrawal, uncomplicated (principal); F14.20 Cocaine dependence, uncomplicated; F12.20 Cannabis dependence, uncomplicated; F17.210 Nicotine dependence, cigarettes, uncomplicated; F19.24 Other psychoactive substance dependence with psychoactive substance-induced mood disorder; I10 Essential (primary) hypertension
CPT/HCPCS: 87635; 87811